=== PATIENT | female | born 1970 | race Caucasian/White ===

== ENCOUNTER 2018-06-09 06:58 | Inpatient (IN) | payer MEDICARE ==
[2018-06-09 08:21] LABS: HEMATOCRIT 39.1 % (36.0-47.0); HEMOGLOBIN 13.5 g/dl (12.0-15.5); MEAN CORPUSCULAR HEMOGLOBIN 28.2 pg (27.0-33.0); MEAN CORPUSCULAR HGB CONC 34.5 g/dl (32.0-36.5); MEAN CORPUSCULAR VOLUME 81.8 fl (80.0-96.0); PLATELET COUNT, AUTOMATED 234 10^3/uL (150-450); RED BLOOD COUNT 4.78 10^6/uL (4.00-5.40); RED CELL DISTRIBUTION WIDTH 13.7 % (11.5-14.5); WHITE BLOOD COUNT 4.4 10^3/uL (4.0-10.0)
[2018-06-09 08:48] LABS: AMPHETAMINES LEVEL URINE NEGATIVE (NEGATIVE); BARBITURATES URINE NEGATIVE (NEGATIVE); BENZODIAZEPINES URINE NEGATIVE (NEGATIVE); CANNABINOIDS URINE NEGATIVE (NEGATIVE); COCAINE METABOLITE URINE NEGATIVE (NEGATIVE); METHADONE URINE NEGATIVE (NEGATIVE); OPIATES URINE NEGATIVE (NEGATIVE); PHENCYCLIDINE URINE NEGATIVE (NEGATIVE)
[2018-06-09 08:55] LABS: ACETAMINOPHEN LEVEL < 2.0 UG/ML (10.0-30.0); ALBUMIN 3.1 GM/DL (3.2-5.2); ALBUMIN/GLOBULIN RATIO 0.72 (1.00-1.93); ALKALINE PHOSPHATASE 107 U/L (45-117); ALT/SGPT 55 U/L (12-78); ANION GAP 13 MEQ/L (8-16); AST/SGOT 31 U/L (7-37); BILIRUBIN,DIRECT < 0.1 MG/DL (0.0-0.2); BILIRUBIN,TOTAL 0.2 MG/DL (0.2-1.0); BLOOD UREA NITROGEN 11 MG/DL (7-18); CALCIUM LEVEL 8.4 MG/DL (8.5-10.1); CARBON DIOXIDE LEVEL 23 MEQ/L (21-32); CHLORIDE LEVEL 96 MEQ/L (98-107); ETHYL ALCOHOL (ETHANOL) < 0.003 % (0.000-0.010); GLOMERULAR FILTRATION RATE > 60.0 (>58); GLUCOSE, FASTING 362 MG/DL (70-100); POTASSIUM SERUM 3.7 MEQ/L (3.5-5.1); SALICYLATE LEVEL < 1.7 MG/DL (5.0-30.0); SODIUM LEVEL 132 MEQ/L (136-145); TOTAL PROTEIN 7.4 GM/DL (6.4-8.2)
[2018-06-09 11:16] LABS: ESTIMATED AVERAGE GLUCOSE 226 MG/DL (60-110); HEMOGLOBIN A1c 9.5 %
[2018-06-09] MEDS ORDERED: MOM 30ML SUSPENSION UDC PO (19:30)
[2018-06-09] MEDS ORDERED: ACETAMINOPHEN TAB 650MG DOSE (2X325MG) PO (19:30)
[2018-06-09] MEDS ORDERED: OLANZapine ORAL DISINTEGRATING TAB 5MG PO (19:30)
[2018-06-09] MEDS ORDERED: MAALOX 30 ML SUSP *UDC PO (19:30)
[2018-06-09] MEDS: metFORMIN (GLUCOPHAGE) 1000 MG TABLET PO (22:54)
[2018-06-09] MEDS: OLANZapine 10 MG TAB PO (22:54)
[2018-06-09] MEDS: PANTOPRAZOLE 40MG TAB (PROTONIX) PO (22:54)
[2018-06-09] MEDS: zolPIDEM TARTRATE 10MG TAB PO (22:54)
[2018-06-09] MEDS: ATORVASTATIN 10 MG TAB PO (22:54)
[2018-06-09] MEDS: BACLOFEN 10 MG TAB PO (22:55)
[2018-06-09] MEDS: GABAPENTIN 300 MG CAP PO (22:55)
[2018-06-09] MEDS: OXcarbazepine 300 MG TAB PO (22:55)
[2018-06-09] MEDS: IBUPROFEN 800 MG TAB PO (23:00)
[2018-06-10] MEDS ORDERED: DEXTROSE 50% 50 ML SYRINGE IV (08:45)
[2018-06-10] MEDS ORDERED: GLUCAGON FOR INJ 1 MG VIAL (J1610) SC (08:45)
[2018-06-10] MEDS ORDERED: GLUCOSE 4 GM CHEW TABLET PO (08:45)
[2018-06-10 09:43] LABS: CONTROL LINE HCG INT CTR LINE PRESENT; HCG, SERUM QUALITATIVE NEGATIVE (NEGATIVE)
[2018-06-10] MEDS: IBUPROFEN 800 MG TAB PO ×2 (10:08→21:54)
[2018-06-10] MEDS: BACLOFEN 10 MG TAB PO ×2 (10:08→21:52)
[2018-06-10] MEDS: FLUoxetine 20 MG CAP PO (10:08)
[2018-06-10] MEDS: GABAPENTIN 300 MG CAP PO ×2 (10:08→21:52)
[2018-06-10] MEDS: metFORMIN (GLUCOPHAGE) 1000 MG TABLET PO ×2 (10:08→21:51)
[2018-06-10] MEDS: OXcarbazepine 300 MG TAB PO ×2 (10:08→21:52)
[2018-06-10] MEDS: HumaLOG INSULIN (NovoLOG) PER UNIT SC ×3 (12:00→21:00)
[2018-06-10 12:02] LABS: BEDSIDE GLUCOSE 295 MG/DL (70-105)
[2018-06-10 17:05] LABS: BEDSIDE GLUCOSE 231 MG/DL (70-105)
[2018-06-10] MEDS: LEVEMIR (INSULIN DETEMIR) 1 UNITS/0.01ML SC (21:00)
[2018-06-10] MEDS: zolPIDEM TARTRATE 10MG TAB PO (21:51)
[2018-06-10] MEDS: ATORVASTATIN 10 MG TAB PO (21:51)
[2018-06-10] MEDS: risperiDONE 2 MG TAB PO (21:52)
[2018-06-10] MEDS: PANTOPRAZOLE 40MG TAB (PROTONIX) PO (21:53)
[2018-06-10] MEDS: OLANZapine 10 MG TAB PO (21:53)
[2018-06-10 21:58] LABS: BEDSIDE GLUCOSE 261 MG/DL (70-105)
[2018-06-11 06:01] LABS: BEDSIDE GLUCOSE 186 MG/DL (70-105)
[2018-06-11] MEDS: HumaLOG INSULIN (NovoLOG) PER UNIT SC ×4 (06:43→20:51)
[2018-06-11 07:59] LABS: ALBUMIN 3.1 GM/DL (3.2-5.2); ALBUMIN/GLOBULIN RATIO 0.84 (1.00-1.93); ALKALINE PHOSPHATASE 82 U/L (45-117); ALT/SGPT 58 U/L (12-78); ANION GAP 11 MEQ/L (8-16); AST/SGOT 39 U/L (7-37); BILIRUBIN,TOTAL 0.3 MG/DL (0.2-1.0); BLOOD UREA NITROGEN 11 MG/DL (7-18); CALCIUM LEVEL 8.8 MG/DL (8.5-10.1); CARBON DIOXIDE LEVEL 27 MEQ/L (21-32); CHLORIDE LEVEL 98 MEQ/L (98-107); CREATININE FOR GFR 0.79 MG/DL (0.55-1.30); FREE THYROXINE INDEX 3.1 % (1.3-4.8); GLOMERULAR FILTRATION RATE > 60.0 (>58); GLUCOSE, FASTING 220 MG/DL (70-100); POTASSIUM SERUM 3.9 MEQ/L (3.5-5.1); SODIUM LEVEL 136 MEQ/L (136-145); T UPTAKE 31 % (30-39); THYROXINE (T4) 9.9 UG/DL (4.5-12.0); TOTAL PROTEIN 6.8 GM/DL (6.4-8.2)
[2018-06-11] MEDS: FLUoxetine 20 MG CAP PO (08:36)
[2018-06-11] MEDS: risperiDONE 1 MG TAB PO (08:36)
[2018-06-11] MEDS: metFORMIN (GLUCOPHAGE) 1000 MG TABLET PO ×2 (08:36→20:51)
[2018-06-11] MEDS: GABAPENTIN 300 MG CAP PO ×2 (08:36→20:50)
[2018-06-11] MEDS: IBUPROFEN 800 MG TAB PO ×2 (08:37→20:51)
[2018-06-11] MEDS: BACLOFEN 10 MG TAB PO ×2 (08:37→20:50)
[2018-06-11] MEDS: INFLUENZA QUADRIVALENT PF VACCINE 0.5ML SYRINGE (90686) IM (08:38)
[2018-06-11] MEDS: OXcarbazepine 300 MG TAB PO ×2 (08:40→20:50)
[2018-06-11 12:01] LABS: BEDSIDE GLUCOSE 260 MG/DL (70-105)
[2018-06-11] MEDS: LORazepam 1 MG TAB PO (13:25)
[2018-06-11] MEDS: risperiDONE 3 MG TAB PO (13:25)
[2018-06-11 16:51] LABS: BEDSIDE GLUCOSE 258 MG/DL (70-105)
[2018-06-11 20:47] LABS: BEDSIDE GLUCOSE 241 MG/DL (70-105)
[2018-06-11] MEDS: zolPIDEM TARTRATE 10MG TAB PO (20:49)
[2018-06-11] MEDS: ATORVASTATIN 10 MG TAB PO (20:50)
[2018-06-11] MEDS: risperiDONE 2 MG TAB PO (20:50)
[2018-06-11] MEDS: PANTOPRAZOLE 40MG TAB (PROTONIX) PO (20:51)
[2018-06-11] MEDS: OLANZapine 5 MG TAB PO (20:51)
[2018-06-11] MEDS: LEVEMIR (INSULIN DETEMIR) 1 UNITS/0.01ML SC (20:52)
[2018-06-12 06:49] LABS: BEDSIDE GLUCOSE 176 MG/DL (70-105)
[2018-06-12] MEDS: HumaLOG INSULIN (NovoLOG) PER UNIT SC ×4 (06:49→21:00)
[2018-06-12] MEDS: metFORMIN (GLUCOPHAGE) 1000 MG TABLET PO ×2 (09:50→21:34)
[2018-06-12] MEDS: BACLOFEN 10 MG TAB PO ×2 (09:50→21:34)
[2018-06-12] MEDS: risperiDONE 0.5 MG TAB PO (09:50)
[2018-06-12] MEDS: OXcarbazepine 300 MG TAB PO ×2 (09:50→21:35)
[2018-06-12] MEDS: GABAPENTIN 300 MG CAP PO ×2 (09:50→21:35)
[2018-06-12] MEDS: IBUPROFEN 800 MG TAB PO ×2 (09:51→21:35)
[2018-06-12] MEDS: FLUoxetine 20 MG CAP PO (09:51)
[2018-06-12 12:04] LABS: BEDSIDE GLUCOSE 206 MG/DL (70-105)
[2018-06-12] MEDS: risperiDONE 2 MG TAB PO (14:51)
[2018-06-12] MEDS ORDERED: risperiDONE 3 MG TAB PO (15:00)
[2018-06-12 17:24] LABS: BEDSIDE GLUCOSE 225 MG/DL (70-105)
[2018-06-12 21:31] LABS: BEDSIDE GLUCOSE 246 MG/DL (70-105)
[2018-06-12] MEDS: clonazePAM 1 MG TAB PO (21:34)
[2018-06-12] MEDS: zolPIDEM TARTRATE 10MG TAB PO (21:34)
[2018-06-12] MEDS: ATORVASTATIN 10 MG TAB PO (21:34)
[2018-06-12] MEDS: PANTOPRAZOLE 40MG TAB (PROTONIX) PO (21:35)
[2018-06-12] MEDS: OLANZapine 5 MG TAB PO (21:35)
[2018-06-12] MEDS: risperiDONE 3 MG TAB PO (21:35)
[2018-06-12] MEDS: LEVEMIR (INSULIN DETEMIR) 1 UNITS/0.01ML SC (21:36)
[2018-06-13] MEDS: HumaLOG INSULIN (NovoLOG) PER UNIT SC ×4 (06:59→20:39)
[2018-06-13 07:01] LABS: BEDSIDE GLUCOSE 264 MG/DL (70-105)
[2018-06-13] MEDS: clonazePAM 1 MG TAB PO ×2 (08:40→20:34)
[2018-06-13] MEDS: IBUPROFEN 800 MG TAB PO ×2 (08:41→20:35)
[2018-06-13] MEDS: risperiDONE 0.5 MG TAB PO (08:41)
[2018-06-13] MEDS: FLUoxetine 20 MG CAP PO (08:41)
[2018-06-13] MEDS: GABAPENTIN 300 MG CAP PO ×2 (08:41→20:34)
[2018-06-13] MEDS: BACLOFEN 10 MG TAB PO ×2 (08:41→20:35)
[2018-06-13] MEDS: metFORMIN (GLUCOPHAGE) 1000 MG TABLET PO ×2 (08:41→20:34)
[2018-06-13] MEDS: OXcarbazepine 300 MG TAB PO ×2 (08:41→20:34)
[2018-06-13 12:14] LABS: BEDSIDE GLUCOSE 298 MG/DL (70-105)
[2018-06-13] MEDS: risperiDONE 3 MG TAB PO ×2 (15:08→20:34)
[2018-06-13 17:24] LABS: BEDSIDE GLUCOSE 199 MG/DL (70-105)
[2018-06-13] MEDS: PANTOPRAZOLE 40MG TAB (PROTONIX) PO (20:34)
[2018-06-13] MEDS: OLANZapine 5 MG TAB PO (20:34)
[2018-06-13] MEDS: ATORVASTATIN 10 MG TAB PO (20:34)
[2018-06-13] MEDS: zolPIDEM TARTRATE 10MG TAB PO (20:34)
[2018-06-13] MEDS: LEVEMIR (INSULIN DETEMIR) 1 UNITS/0.01ML SC (20:39)
[2018-06-13 20:41] LABS: BEDSIDE GLUCOSE 262 MG/DL (70-105)
[2018-06-14 06:26] LABS: BEDSIDE GLUCOSE 186 MG/DL (70-105)
[2018-06-14] MEDS: HumaLOG INSULIN (NovoLOG) PER UNIT SC ×4 (06:52→21:00)
[2018-06-14] MEDS: metFORMIN (GLUCOPHAGE) 1000 MG TABLET PO ×2 (08:44→21:21)
[2018-06-14] MEDS: clonazePAM 1 MG TAB PO ×2 (08:44→21:21)
[2018-06-14] MEDS: FLUoxetine 20 MG CAP PO (08:44)
[2018-06-14] MEDS: risperiDONE 0.5 MG TAB PO (08:44)
[2018-06-14] MEDS: BACLOFEN 10 MG TAB PO ×2 (08:44→21:21)
[2018-06-14] MEDS: GABAPENTIN 300 MG CAP PO ×2 (08:44→21:21)
[2018-06-14] MEDS: OXcarbazepine 300 MG TAB PO ×2 (08:44→21:21)
[2018-06-14] MEDS: IBUPROFEN 800 MG TAB PO ×2 (08:44→21:22)
[2018-06-14] MEDS: risperiDONE 3 MG TAB PO ×2 (14:45→21:21)
[2018-06-14 17:17] LABS: BEDSIDE GLUCOSE 235 MG/DL (70-105)
[2018-06-14] MEDS: OLANZapine 5 MG TAB PO (21:21)
[2018-06-14] MEDS: zolPIDEM TARTRATE 10MG TAB PO (21:21)
[2018-06-14] MEDS: PANTOPRAZOLE 40MG TAB (PROTONIX) PO (21:21)
[2018-06-14 21:22] LABS: BEDSIDE GLUCOSE 241 MG/DL (70-105)
[2018-06-14] MEDS: ATORVASTATIN 10 MG TAB PO (21:22)
[2018-06-14] MEDS: LEVEMIR (INSULIN DETEMIR) 1 UNITS/0.01ML SC (21:26)
[2018-06-15 06:17] LABS: BEDSIDE GLUCOSE 226 MG/DL (70-105)
[2018-06-15] MEDS: HumaLOG INSULIN (NovoLOG) PER UNIT SC ×4 (06:50→20:59)
[2018-06-15] MEDS: FLUoxetine 20 MG CAP PO (08:42)
[2018-06-15] MEDS: BACLOFEN 10 MG TAB PO ×2 (08:42→20:53)
[2018-06-15] MEDS: clonazePAM 1 MG TAB PO ×2 (08:42→20:52)
[2018-06-15] MEDS: risperiDONE 0.5 MG TAB PO (08:42)
[2018-06-15] MEDS: OXcarbazepine 300 MG TAB PO ×2 (08:42→20:54)
[2018-06-15] MEDS: GABAPENTIN 300 MG CAP PO ×2 (08:42→20:54)
[2018-06-15] MEDS: IBUPROFEN 800 MG TAB PO ×2 (08:42→20:57)
[2018-06-15] MEDS: metFORMIN (GLUCOPHAGE) 1000 MG TABLET PO ×2 (08:42→20:53)
[2018-06-15 12:24] LABS: BEDSIDE GLUCOSE 264 MG/DL (70-105)
[2018-06-15] MEDS: risperiDONE 3 MG TAB PO ×2 (15:32→20:57)
[2018-06-15 17:12] LABS: BEDSIDE GLUCOSE 243 MG/DL (70-105)
[2018-06-15] MEDS: ATORVASTATIN 10 MG TAB PO (20:52)
[2018-06-15] MEDS: zolPIDEM TARTRATE 10MG TAB PO (20:52)
[2018-06-15 20:53] LABS: BEDSIDE GLUCOSE 265 MG/DL (70-105)
[2018-06-15] MEDS: OLANZapine 5 MG TAB PO (20:54)
[2018-06-15] MEDS: PANTOPRAZOLE 40MG TAB (PROTONIX) PO (20:57)
[2018-06-15] MEDS: LEVEMIR (INSULIN DETEMIR) 1 UNITS/0.01ML SC (20:59)
[2018-06-16 06:13] LABS: BEDSIDE GLUCOSE 206 MG/DL (70-105)
[2018-06-16] MEDS: HumaLOG INSULIN (NovoLOG) PER UNIT SC ×4 (06:50→21:00)
[2018-06-16] MEDS: BACLOFEN 10 MG TAB PO ×2 (09:29→21:28)
[2018-06-16] MEDS: metFORMIN (GLUCOPHAGE) 1000 MG TABLET PO ×2 (09:29→21:28)
[2018-06-16] MEDS: OXcarbazepine 300 MG TAB PO ×2 (09:29→21:28)
[2018-06-16] MEDS: FLUoxetine 20 MG CAP PO (09:29)
[2018-06-16] MEDS: clonazePAM 1 MG TAB PO ×2 (09:29→21:29)
[2018-06-16] MEDS: GABAPENTIN 300 MG CAP PO ×2 (09:29→21:27)
[2018-06-16] MEDS: risperiDONE 0.5 MG TAB PO (09:29)
[2018-06-16] MEDS: IBUPROFEN 800 MG TAB PO ×2 (09:29→21:29)
[2018-06-16 11:46] LABS: BEDSIDE GLUCOSE 217 MG/DL (70-105)
[2018-06-16] MEDS: risperiDONE 3 MG TAB PO ×2 (14:35→21:29)
[2018-06-16] MEDS ORDERED: diphenhydrAMINE 50 MG CAP PO (15:15)
[2018-06-16 17:02] LABS: BEDSIDE GLUCOSE 233 MG/DL (70-105)
[2018-06-16] MEDS: ATORVASTATIN 10 MG TAB PO (21:27)
[2018-06-16 21:28] LABS: BEDSIDE GLUCOSE 237 MG/DL (70-105)
[2018-06-16] MEDS: zolPIDEM TARTRATE 5 MG TAB PO (21:28)
[2018-06-16] MEDS: PANTOPRAZOLE 40MG TAB (PROTONIX) PO (21:28)
[2018-06-16] MEDS: MIRTAZAPINE 15 MG TAB PO (21:28)
[2018-06-16] MEDS: LEVEMIR (INSULIN DETEMIR) 1 UNITS/0.01ML SC (21:30)
[2018-06-17] MEDS: HumaLOG INSULIN (NovoLOG) PER UNIT SC ×4 (06:23→21:00)
[2018-06-17 06:35] LABS: BEDSIDE GLUCOSE 195 MG/DL (70-105)
[2018-06-17] MEDS ORDERED: FLUoxetine 10 MG CAP PO (09:00)
[2018-06-17] MEDS: IBUPROFEN 800 MG TAB PO ×2 (09:48→21:19)
[2018-06-17] MEDS: metFORMIN (GLUCOPHAGE) 1000 MG TABLET PO ×2 (09:48→21:18)
[2018-06-17] MEDS: OXcarbazepine 300 MG TAB PO ×2 (09:48→21:19)
[2018-06-17] MEDS: VENLAFAXINE 37.5 MG TAB PO (09:48)
[2018-06-17] MEDS: clonazePAM 1 MG TAB PO ×2 (09:48→21:19)
[2018-06-17] MEDS: FLUoxetine 20 MG CAP PO (09:49)
[2018-06-17] MEDS: BACLOFEN 10 MG TAB PO ×2 (09:49→21:18)
[2018-06-17] MEDS: GABAPENTIN 300 MG CAP PO ×2 (09:49→21:19)
[2018-06-17 11:46] LABS: BEDSIDE GLUCOSE 268 MG/DL (70-105)
[2018-06-17] MEDS: risperiDONE 2 MG TAB PO (15:18)
[2018-06-17 16:30] LABS: BEDSIDE GLUCOSE 225 MG/DL (70-105)
[2018-06-17] MEDS ORDERED: PILL CRUSHER/CUTTER 1 EACH XX (16:30)
[2018-06-17 21:18] LABS: BEDSIDE GLUCOSE 196 MG/DL (70-105)
[2018-06-17] MEDS: MIRTAZAPINE 15 MG TAB PO (21:18)
[2018-06-17] MEDS: ATORVASTATIN 10 MG TAB PO (21:18)
[2018-06-17] MEDS: zolPIDEM TARTRATE 5 MG TAB PO (21:19)
[2018-06-17] MEDS: PANTOPRAZOLE 40MG TAB (PROTONIX) PO (21:19)
[2018-06-17] MEDS: risperiDONE 3 MG TAB PO (21:19)
[2018-06-17] MEDS: LEVEMIR (INSULIN DETEMIR) 1 UNITS/0.01ML SC (21:20)
[2018-06-18 06:33] LABS: BEDSIDE GLUCOSE 177 MG/DL (70-105)
[2018-06-18] MEDS: HumaLOG INSULIN (NovoLOG) PER UNIT SC ×4 (06:34→21:00)
[2018-06-18] MEDS: metFORMIN (GLUCOPHAGE) 1000 MG TABLET PO ×2 (08:38→22:00)
[2018-06-18] MEDS: BACLOFEN 10 MG TAB PO ×2 (08:39→22:00)
[2018-06-18] MEDS: clonazePAM 1 MG TAB PO ×2 (08:40→22:00)
[2018-06-18] MEDS: VENLAFAXINE 37.5 MG TAB PO (08:40)
[2018-06-18] MEDS: GABAPENTIN 300 MG CAP PO ×2 (08:41→22:00)
[2018-06-18] MEDS: IBUPROFEN 800 MG TAB PO ×2 (08:41→21:59)
[2018-06-18] MEDS: FLUoxetine 10 MG CAP PO (08:42)
[2018-06-18] MEDS: OXcarbazepine 300 MG TAB PO ×2 (08:42→21:59)
[2018-06-18 11:36] LABS: BEDSIDE GLUCOSE 170 MG/DL (70-105)
[2018-06-18] MEDS: risperiDONE 2 MG TAB PO (15:03)
[2018-06-18 16:49] LABS: BEDSIDE GLUCOSE 251 MG/DL (70-105)
[2018-06-18] MEDS: PANTOPRAZOLE 40MG TAB (PROTONIX) PO (21:59)
[2018-06-18] MEDS: ARIPiprazole 10 MG TAB PO (21:59)
[2018-06-18] MEDS: MIRTAZAPINE 15 MG TAB PO (22:00)
[2018-06-18] MEDS: risperiDONE 3 MG TAB PO (22:00)
[2018-06-18] MEDS: ATORVASTATIN 10 MG TAB PO (22:00)
[2018-06-18] MEDS: zolPIDEM TARTRATE 5 MG TAB PO (22:00)
[2018-06-18 22:03] LABS: BEDSIDE GLUCOSE 246 MG/DL (70-105)
[2018-06-18] MEDS: LEVEMIR (INSULIN DETEMIR) 1 UNITS/0.01ML SC (22:04)
[2018-06-19 06:30] LABS: BEDSIDE GLUCOSE 258 MG/DL (70-105)
[2018-06-19] MEDS: HumaLOG INSULIN (NovoLOG) PER UNIT SC ×4 (07:08→21:00)
[2018-06-19] MEDS: ARIPiprazole 10 MG TAB PO (09:29)
[2018-06-19] MEDS: GABAPENTIN 300 MG CAP PO ×2 (09:29→20:13)
[2018-06-19] MEDS: IBUPROFEN 800 MG TAB PO ×2 (09:29→20:13)
[2018-06-19] MEDS: OXcarbazepine 300 MG TAB PO ×2 (09:29→20:16)
[2018-06-19] MEDS: metFORMIN (GLUCOPHAGE) 1000 MG TABLET PO ×2 (09:29→20:17)
[2018-06-19] MEDS: VENLAFAXINE 37.5 MG TAB PO ×2 (09:29→20:17)
[2018-06-19] MEDS: clonazePAM 1 MG TAB PO (09:29)
[2018-06-19] MEDS: BACLOFEN 10 MG TAB PO ×2 (09:30→20:13)
[2018-06-19] MEDS: IBUPROFEN 600 MG TAB PO (12:32)
[2018-06-19 12:37] LABS: BEDSIDE GLUCOSE 166 MG/DL (70-105)
[2018-06-19 15:24] LABS: BEDSIDE GLUCOSE 132 MG/DL (70-105)
[2018-06-19] MEDS: risperiDONE 2 MG TAB PO (15:28)
[2018-06-19 17:18] LABS: BEDSIDE GLUCOSE 163 MG/DL (70-105)
[2018-06-19 20:11] LABS: BEDSIDE GLUCOSE 181 MG/DL (70-105)
[2018-06-19] MEDS: ATORVASTATIN 10 MG TAB PO (20:12)
[2018-06-19] MEDS: ARIPiprazole 15 MG TAB (AbiLIFY) PO (20:13)
[2018-06-19] MEDS: zolPIDEM TARTRATE 5 MG TAB PO (20:16)
[2018-06-19] MEDS: risperiDONE 3 MG TAB PO (20:16)
[2018-06-19] MEDS: MIRTAZAPINE 15 MG TAB PO (20:17)
[2018-06-19] MEDS: PANTOPRAZOLE 40MG TAB (PROTONIX) PO (20:17)
[2018-06-19] MEDS: LEVEMIR (INSULIN DETEMIR) 1 UNITS/0.01ML SC (21:20)
[2018-06-20 06:30] LABS: BEDSIDE GLUCOSE 176 MG/DL (70-105)
[2018-06-20] MEDS: HumaLOG INSULIN (NovoLOG) PER UNIT SC ×4 (07:09→21:00)
[2018-06-20] MEDS: OXcarbazepine 300 MG TAB PO ×2 (08:53→21:06)
[2018-06-20] MEDS: BACLOFEN 10 MG TAB PO ×2 (08:53→21:05)
[2018-06-20] MEDS: VENLAFAXINE 37.5 MG TAB PO ×2 (08:53→21:05)
[2018-06-20] MEDS: metFORMIN (GLUCOPHAGE) 1000 MG TABLET PO ×2 (08:53→21:05)
[2018-06-20] MEDS: GABAPENTIN 300 MG CAP PO ×2 (08:53→21:06)
[2018-06-20] MEDS: IBUPROFEN 800 MG TAB PO ×2 (08:54→21:04)
[2018-06-20] MEDS: ARIPiprazole 15 MG TAB (AbiLIFY) PO ×2 (08:54→21:06)
[2018-06-20] MEDS ORDERED: VENLAFAXINE 37.5 MG TAB PO (09:00)
[2018-06-20] MEDS: hydrOXYzine 10 MG TAB PO (09:17)
[2018-06-20 12:05] LABS: BEDSIDE GLUCOSE 206 MG/DL (70-105)
[2018-06-20] MEDS: risperiDONE 2 MG TAB PO ×2 (14:09→21:06)
[2018-06-20 16:56] LABS: BEDSIDE GLUCOSE 145 MG/DL (70-105)
[2018-06-20] MEDS: zolPIDEM TARTRATE 5 MG TAB PO (21:00)
[2018-06-20] MEDS: ATORVASTATIN 10 MG TAB PO (21:04)
[2018-06-20] MEDS: MIRTAZAPINE 15 MG TAB PO (21:05)
[2018-06-20] MEDS: PANTOPRAZOLE 40MG TAB (PROTONIX) PO (21:06)
[2018-06-20] MEDS: LEVEMIR (INSULIN DETEMIR) 1 UNITS/0.01ML SC (21:10)
[2018-06-21 05:31] LABS: BEDSIDE GLUCOSE 168 MG/DL (70-105)
[2018-06-21] MEDS: HumaLOG INSULIN (NovoLOG) PER UNIT SC ×4 (06:33→21:00)
[2018-06-21 06:40] LABS: BEDSIDE GLUCOSE 142 MG/DL (70-105)
[2018-06-21] MEDS: GABAPENTIN 300 MG CAP PO ×2 (09:07→21:30)
[2018-06-21] MEDS: ARIPiprazole 15 MG TAB (AbiLIFY) PO ×2 (09:07→21:29)
[2018-06-21] MEDS: BACLOFEN 10 MG TAB PO ×2 (09:07→21:29)
[2018-06-21] MEDS: OXcarbazepine 300 MG TAB PO ×2 (09:07→21:30)
[2018-06-21] MEDS: IBUPROFEN 800 MG TAB PO ×2 (09:07→21:29)
[2018-06-21] MEDS: VENLAFAXINE 37.5 MG TAB PO ×2 (09:07→21:29)
[2018-06-21] MEDS: metFORMIN (GLUCOPHAGE) 1000 MG TABLET PO ×2 (09:07→21:30)
[2018-06-21 12:14] LABS: BEDSIDE GLUCOSE 165 MG/DL (70-105)
[2018-06-21] MEDS: risperiDONE 2 MG TAB PO ×2 (14:04→21:30)
[2018-06-21] MEDS: CEPACOL LOZENGE PO ×2 (16:54→21:34)
[2018-06-21 16:56] LABS: BEDSIDE GLUCOSE 128 MG/DL (70-105)
[2018-06-21] MEDS: zolPIDEM TARTRATE 5 MG TAB PO (21:00)
[2018-06-21] MEDS: MIRTAZAPINE 15 MG TAB PO (21:29)
[2018-06-21] MEDS: PANTOPRAZOLE 40MG TAB (PROTONIX) PO (21:29)
[2018-06-21] MEDS: ATORVASTATIN 10 MG TAB PO (21:30)
[2018-06-21 21:31] LABS: BEDSIDE GLUCOSE 148 MG/DL (70-105)
[2018-06-21] MEDS: LEVEMIR (INSULIN DETEMIR) 1 UNITS/0.01ML SC (21:32)
[2018-06-22 06:32] LABS: BEDSIDE GLUCOSE 152 MG/DL (70-105)
[2018-06-22] MEDS: HumaLOG INSULIN (NovoLOG) PER UNIT SC ×4 (06:33→21:00)
[2018-06-22] MEDS: IBUPROFEN 800 MG TAB PO ×2 (08:52→21:34)
[2018-06-22] MEDS: OXcarbazepine 300 MG TAB PO ×2 (08:53→21:33)
[2018-06-22] MEDS: ARIPiprazole 15 MG TAB (AbiLIFY) PO ×2 (08:53→21:34)
[2018-06-22] MEDS: VENLAFAXINE 37.5 MG TAB PO ×2 (08:53→21:34)
[2018-06-22] MEDS: BACLOFEN 10 MG TAB PO ×2 (08:53→21:34)
[2018-06-22] MEDS: GABAPENTIN 300 MG CAP PO ×2 (08:53→21:34)
[2018-06-22 12:06] LABS: BEDSIDE GLUCOSE 142 MG/DL (70-105)
[2018-06-22] MEDS: metFORMIN (GLUCOPHAGE) 1000 MG TABLET PO ×2 (12:06→21:34)
[2018-06-22] MEDS: CEPACOL LOZENGE PO ×2 (13:45→21:39)
[2018-06-22] MEDS: risperiDONE 2 MG TAB PO ×2 (14:44→21:33)
[2018-06-22 16:51] LABS: BEDSIDE GLUCOSE 131 MG/DL (70-105)
[2018-06-22] MEDS: zolPIDEM TARTRATE 5 MG TAB PO (21:00)
[2018-06-22 21:34] LABS: BEDSIDE GLUCOSE 146 MG/DL (70-105)
[2018-06-22] MEDS: PANTOPRAZOLE 40MG TAB (PROTONIX) PO (21:34)
[2018-06-22] MEDS: MIRTAZAPINE 15 MG TAB PO (21:34)
[2018-06-22] MEDS: ATORVASTATIN 10 MG TAB PO (21:34)
[2018-06-22] MEDS: LEVEMIR (INSULIN DETEMIR) 1 UNITS/0.01ML SC (21:41)
[2018-06-23] MEDS: HumaLOG INSULIN (NovoLOG) PER UNIT SC ×4 (06:28→21:00)
[2018-06-23 06:47] LABS: BEDSIDE GLUCOSE 115 MG/DL (70-105)
[2018-06-23] MEDS: ARIPiprazole 15 MG TAB (AbiLIFY) PO ×2 (09:01→21:52)
[2018-06-23] MEDS: BACLOFEN 10 MG TAB PO ×2 (09:01→21:52)
[2018-06-23] MEDS: metFORMIN (GLUCOPHAGE) 1000 MG TABLET PO ×2 (09:01→21:52)
[2018-06-23] MEDS: VENLAFAXINE 37.5 MG TAB PO (09:01)
[2018-06-23] MEDS: OXcarbazepine 300 MG TAB PO ×2 (09:01→21:52)
[2018-06-23] MEDS: IBUPROFEN 800 MG TAB PO ×2 (09:01→21:51)
[2018-06-23] MEDS: GABAPENTIN 300 MG CAP PO ×2 (09:01→21:52)
[2018-06-23 11:59] LABS: BEDSIDE GLUCOSE 137 MG/DL (70-105)
[2018-06-23] MEDS: risperiDONE 2 MG TAB PO ×2 (14:30→21:54)
[2018-06-23 16:59] LABS: BEDSIDE GLUCOSE 127 MG/DL (70-105)
[2018-06-23 21:46] LABS: BEDSIDE GLUCOSE 127 MG/DL (70-105)
[2018-06-23] MEDS: PANTOPRAZOLE 40MG TAB (PROTONIX) PO (21:52)
[2018-06-23] MEDS: ATORVASTATIN 10 MG TAB PO (21:52)
[2018-06-23] MEDS: MIRTAZAPINE 15 MG TAB PO (21:54)
[2018-06-23] MEDS: VENLAFAXINE **XR** 75MG CAPSULE PO (21:54)
[2018-06-23] MEDS: LEVEMIR (INSULIN DETEMIR) 1 UNITS/0.01ML SC (22:06)
[2018-06-24] MEDS: HumaLOG INSULIN (NovoLOG) PER UNIT SC ×4 (06:53→21:00)
[2018-06-24 08:19] LABS: BEDSIDE GLUCOSE 142 MG/DL (70-105)
[2018-06-24 08:19] LABS: BEDSIDE GLUCOSE 68 MG/DL (70-105)
[2018-06-24] MEDS: metFORMIN (GLUCOPHAGE) 1000 MG TABLET PO ×2 (09:21→21:01)
[2018-06-24] MEDS: ARIPiprazole 15 MG TAB (AbiLIFY) PO (09:21)
[2018-06-24] MEDS: BACLOFEN 10 MG TAB PO ×2 (09:22→21:03)
[2018-06-24] MEDS: OXcarbazepine 300 MG TAB PO ×2 (09:23→21:03)
[2018-06-24] MEDS: GABAPENTIN 300 MG CAP PO ×2 (09:23→21:03)
[2018-06-24] MEDS: VENLAFAXINE **XR** 75MG CAPSULE PO (09:23)
[2018-06-24] MEDS: IBUPROFEN 800 MG TAB PO ×2 (09:43→21:02)
[2018-06-24 11:44] LABS: BEDSIDE GLUCOSE 167 MG/DL (70-105)
[2018-06-24] MEDS: NYSTATIN 500,000 U/5 ML SUSP UDC SS ×3 (12:01→21:01)
[2018-06-24] MEDS: risperiDONE 2 MG TAB PO ×2 (15:35→21:03)
[2018-06-24 17:37] LABS: BEDSIDE GLUCOSE 110 MG/DL (70-105)
[2018-06-24 20:58] LABS: BEDSIDE GLUCOSE 145 MG/DL (70-105)
[2018-06-24] MEDS: MIRTAZAPINE 15 MG TAB PO (21:03)
[2018-06-24] MEDS: ATORVASTATIN 10 MG TAB PO (21:03)
[2018-06-24] MEDS: QUEtiapine FUMARATE 25 MG TAB PO (21:03)
[2018-06-24] MEDS: LEVEMIR (INSULIN DETEMIR) 1 UNITS/0.01ML SC (21:10)
[2018-06-24] MEDS: PANTOPRAZOLE 40MG TAB (PROTONIX) PO (21:12)
[2018-06-25 06:28] LABS: BEDSIDE GLUCOSE 126 MG/DL (70-105)
[2018-06-25] MEDS: HumaLOG INSULIN (NovoLOG) PER UNIT SC ×4 (06:52→21:00)
[2018-06-25 07:05] LABS: ALBUMIN 3.4 GM/DL (3.2-5.2); ALBUMIN/GLOBULIN RATIO 0.94 (1.00-1.93); ALKALINE PHOSPHATASE 82 U/L (45-117); ALT/SGPT 41 U/L (12-78); AST/SGOT 25 U/L (7-37); BILIRUBIN,DIRECT < 0.1 MG/DL (0.0-0.2); BILIRUBIN,TOTAL 0.2 MG/DL (0.2-1.0); CHOLESTEROL LEVEL 209 MG/DL (<200); CHOLESTEROL RISK RATIO 5.358 (<5); HDL CHOLESTEROL 39 MG/DL (>40); NON-HDL-C 170 MG/DL; TRIGLYCERIDES LEVEL 559 MG/DL (<150)
[2018-06-25] MEDS: metFORMIN (GLUCOPHAGE) 1000 MG TABLET PO ×2 (08:54→21:38)
[2018-06-25] MEDS: NYSTATIN 500,000 U/5 ML SUSP UDC SS ×4 (08:54→21:36)
[2018-06-25] MEDS: GABAPENTIN 300 MG CAP PO ×2 (08:55→21:40)
[2018-06-25] MEDS: BACLOFEN 10 MG TAB PO ×2 (08:55→21:38)
[2018-06-25] MEDS: IBUPROFEN 800 MG TAB PO ×2 (08:55→21:43)
[2018-06-25] MEDS: FLUoxetine 10 MG CAP PO (08:55)
[2018-06-25] MEDS: QUEtiapine FUMARATE 25 MG TAB PO ×3 (08:55→21:37)
[2018-06-25] MEDS: OXcarbazepine 300 MG TAB PO ×2 (08:55→21:40)
[2018-06-25] MEDS: VENLAFAXINE **XR** 75MG CAPSULE PO (08:56)
[2018-06-25 12:10] LABS: BEDSIDE GLUCOSE 122 MG/DL (70-105)
[2018-06-25] MEDS: CEPACOL LOZENGE PO (15:42)
[2018-06-25 17:12] LABS: BEDSIDE GLUCOSE 142 MG/DL (70-105)
[2018-06-25] MEDS ORDERED: ARIPiprazole 15 MG TAB (AbiLIFY) PO (21:00)
[2018-06-25] MEDS ORDERED: risperiDONE 1 MG TAB PO (21:00)
[2018-06-25] MEDS: MIRTAZAPINE 15 MG TAB PO (21:37)
[2018-06-25] MEDS: ATORVASTATIN 10 MG TAB PO (21:37)
[2018-06-25 21:38] LABS: BEDSIDE GLUCOSE 141 MG/DL (70-105)
[2018-06-25] MEDS: risperiDONE 2 MG TAB PO (21:39)
[2018-06-25] MEDS: PANTOPRAZOLE 40MG TAB (PROTONIX) PO (21:40)
[2018-06-25] MEDS: LEVEMIR (INSULIN DETEMIR) 1 UNITS/0.01ML SC (21:41)
[2018-06-26] MEDS: HumaLOG INSULIN (NovoLOG) PER UNIT SC ×4 (06:29→21:00)
[2018-06-26 06:46] LABS: BEDSIDE GLUCOSE 119 MG/DL (70-105)
[2018-06-26] MEDS: OXcarbazepine 300 MG TAB PO ×2 (08:27→21:08)
[2018-06-26] MEDS: BACLOFEN 10 MG TAB PO ×2 (08:27→21:09)
[2018-06-26] MEDS: metFORMIN (GLUCOPHAGE) 1000 MG TABLET PO ×2 (08:27→21:09)
[2018-06-26] MEDS: VENLAFAXINE **XR** 75MG CAPSULE PO (08:27)
[2018-06-26] MEDS: QUEtiapine FUMARATE 25 MG TAB PO ×3 (08:27→21:08)
[2018-06-26] MEDS: IBUPROFEN 800 MG TAB PO ×2 (08:27→21:08)
[2018-06-26] MEDS: GABAPENTIN 300 MG CAP PO ×2 (08:27→21:08)
[2018-06-26] MEDS: NYSTATIN 500,000 U/5 ML SUSP UDC SS ×4 (08:27→21:06)
[2018-06-26 12:03] LABS: BEDSIDE GLUCOSE 119 MG/DL (70-105)
[2018-06-26 17:14] LABS: BEDSIDE GLUCOSE 132 MG/DL (70-105)
[2018-06-26] MEDS: MIRTAZAPINE 15 MG TAB PO (21:08)
[2018-06-26] MEDS: PANTOPRAZOLE 40MG TAB (PROTONIX) PO (21:08)
[2018-06-26 21:09] LABS: BEDSIDE GLUCOSE 128 MG/DL (70-105)
[2018-06-26] MEDS: ATORVASTATIN 10 MG TAB PO (21:09)
[2018-06-26] MEDS: risperiDONE 2 MG TAB PO (21:09)
[2018-06-26] MEDS: LEVEMIR (INSULIN DETEMIR) 1 UNITS/0.01ML SC (21:13)
[2018-06-27] MEDS: HumaLOG INSULIN (NovoLOG) PER UNIT SC ×4 (06:28→21:00)
[2018-06-27 06:35] LABS: BEDSIDE GLUCOSE 103 MG/DL (70-105)
[2018-06-27] MEDS: VENLAFAXINE **XR** 75MG CAPSULE PO (09:02)
[2018-06-27] MEDS: NYSTATIN 500,000 U/5 ML SUSP UDC SS ×4 (09:02→21:29)
[2018-06-27] MEDS: OXcarbazepine 300 MG TAB PO ×2 (09:03→21:29)
[2018-06-27] MEDS: BACLOFEN 10 MG TAB PO ×2 (09:03→21:27)
[2018-06-27] MEDS: IBUPROFEN 800 MG TAB PO ×2 (09:03→21:28)
[2018-06-27] MEDS: GABAPENTIN 300 MG CAP PO ×2 (09:03→21:29)
[2018-06-27] MEDS: QUEtiapine FUMARATE 25 MG TAB PO ×3 (09:03→21:29)
[2018-06-27] MEDS: metFORMIN (GLUCOPHAGE) 1000 MG TABLET PO ×2 (09:03→21:29)
[2018-06-27 12:31] LABS: BEDSIDE GLUCOSE 116 MG/DL (70-105)
[2018-06-27 17:29] LABS: BEDSIDE GLUCOSE 115 MG/DL (70-105)
[2018-06-27 21:23] LABS: BEDSIDE GLUCOSE 147 MG/DL (70-105)
[2018-06-27] MEDS: PANTOPRAZOLE 40MG TAB (PROTONIX) PO (21:27)
[2018-06-27] MEDS: MIRTAZAPINE 15 MG TAB PO (21:29)
[2018-06-27] MEDS: ATORVASTATIN 10 MG TAB PO (21:29)
[2018-06-27] MEDS: LEVEMIR (INSULIN DETEMIR) 1 UNITS/0.01ML SC (21:35)
[2018-06-27] MEDS: risperiDONE 2 MG TAB PO (21:40)
[2018-06-28 06:39] LABS: BEDSIDE GLUCOSE 132 MG/DL (70-105)
[2018-06-28] MEDS: HumaLOG INSULIN (NovoLOG) PER UNIT SC ×4 (06:52→20:52)
[2018-06-28] MEDS: BACLOFEN 10 MG TAB PO ×2 (09:52→20:45)
[2018-06-28] MEDS: OXcarbazepine 300 MG TAB PO ×2 (09:52→20:46)
[2018-06-28] MEDS: VENLAFAXINE **XR** 75MG CAPSULE PO (09:52)
[2018-06-28] MEDS: metFORMIN (GLUCOPHAGE) 1000 MG TABLET PO ×2 (09:53→20:46)
[2018-06-28] MEDS: NYSTATIN 500,000 U/5 ML SUSP UDC SS ×4 (09:53→20:46)
[2018-06-28] MEDS: IBUPROFEN 800 MG TAB PO ×2 (09:53→20:48)
[2018-06-28] MEDS: GABAPENTIN 300 MG CAP PO ×2 (09:53→20:46)
[2018-06-28] MEDS: QUEtiapine FUMARATE 25 MG TAB PO ×3 (09:53→20:47)
[2018-06-28 13:32] LABS: BEDSIDE GLUCOSE 114 MG/DL (70-105)
[2018-06-28 17:00] LABS: BEDSIDE GLUCOSE 129 MG/DL (70-105)
[2018-06-28] MEDS: risperiDONE 2 MG TAB PO (20:46)
[2018-06-28] MEDS: ATORVASTATIN 10 MG TAB PO (20:46)
[2018-06-28] MEDS: LEVEMIR (INSULIN DETEMIR) 1 UNITS/0.01ML SC (20:46)
[2018-06-28] MEDS: MIRTAZAPINE 15 MG TAB PO (20:47)
[2018-06-28] MEDS: PANTOPRAZOLE 40MG TAB (PROTONIX) PO (20:48)
[2018-06-28 20:56] LABS: BEDSIDE GLUCOSE 155 MG/DL (70-105)
[2018-06-29 06:25] LABS: BEDSIDE GLUCOSE 119 MG/DL (70-105)
[2018-06-29] MEDS: HumaLOG INSULIN (NovoLOG) PER UNIT SC ×4 (06:47→21:47)
[2018-06-29] MEDS: QUEtiapine FUMARATE 25 MG TAB PO ×3 (08:46→21:42)
[2018-06-29] MEDS: metFORMIN (GLUCOPHAGE) 1000 MG TABLET PO ×2 (08:46→21:42)
[2018-06-29] MEDS: VENLAFAXINE **XR** 75MG CAPSULE PO (08:46)
[2018-06-29] MEDS: BACLOFEN 10 MG TAB PO ×2 (08:46→21:41)
[2018-06-29] MEDS: OXcarbazepine 300 MG TAB PO ×2 (08:46→21:41)
[2018-06-29] MEDS: NYSTATIN 500,000 U/5 ML SUSP UDC SS ×4 (08:47→21:40)
[2018-06-29] MEDS: GABAPENTIN 300 MG CAP PO ×2 (08:47→21:40)
[2018-06-29] MEDS: IBUPROFEN 800 MG TAB PO ×2 (08:47→21:42)
[2018-06-29 12:16] LABS: BEDSIDE GLUCOSE 139 MG/DL (70-105)
[2018-06-29 17:07] LABS: BEDSIDE GLUCOSE 167 MG/DL (70-105)
[2018-06-29] MEDS: risperiDONE 2 MG TAB PO (21:40)
[2018-06-29 21:41] LABS: BEDSIDE GLUCOSE 131 MG/DL (70-105)
[2018-06-29] MEDS: ATORVASTATIN 10 MG TAB PO (21:42)
[2018-06-29] MEDS: MIRTAZAPINE 15 MG TAB PO (21:42)
[2018-06-29] MEDS: PANTOPRAZOLE 40MG TAB (PROTONIX) PO (21:42)
[2018-06-29] MEDS: LEVEMIR (INSULIN DETEMIR) 1 UNITS/0.01ML SC (21:43)
[2018-06-30 06:40] LABS: BEDSIDE GLUCOSE 118 MG/DL (70-105)
[2018-06-30] MEDS: HumaLOG INSULIN (NovoLOG) PER UNIT SC ×4 (06:43→21:00)
[2018-06-30] MEDS: metFORMIN (GLUCOPHAGE) 1000 MG TABLET PO ×2 (08:28→22:04)
[2018-06-30] MEDS: QUEtiapine FUMARATE 25 MG TAB PO ×3 (08:28→22:03)
[2018-06-30] MEDS: OXcarbazepine 300 MG TAB PO ×2 (08:28→22:03)
[2018-06-30] MEDS: VENLAFAXINE **XR** 75MG CAPSULE PO (08:28)
[2018-06-30] MEDS: GABAPENTIN 300 MG CAP PO ×2 (08:28→22:05)
[2018-06-30] MEDS: NYSTATIN 500,000 U/5 ML SUSP UDC SS ×4 (08:28→22:05)
[2018-06-30] MEDS: IBUPROFEN 800 MG TAB PO ×2 (08:29→22:05)
[2018-06-30] MEDS: BACLOFEN 10 MG TAB PO ×2 (08:29→22:04)
[2018-06-30 11:52] LABS: BEDSIDE GLUCOSE 140 MG/DL (70-105)
[2018-06-30] MEDS ORDERED: clonazePAM 0.5 MG TAB PO (16:08)
[2018-06-30 16:54] LABS: BEDSIDE GLUCOSE 153 MG/DL (70-105)
[2018-06-30] MEDS: ATORVASTATIN 10 MG TAB PO (22:03)
[2018-06-30 22:04] LABS: BEDSIDE GLUCOSE 150 MG/DL (70-105)
[2018-06-30] MEDS: PANTOPRAZOLE 40MG TAB (PROTONIX) PO (22:04)
[2018-06-30] MEDS: MIRTAZAPINE 15 MG TAB PO (22:04)
[2018-06-30] MEDS: risperiDONE 2 MG TAB PO (22:05)
[2018-06-30] MEDS: LEVEMIR (INSULIN DETEMIR) 1 UNITS/0.01ML SC (22:06)
[2018-07-01 06:34] LABS: BEDSIDE GLUCOSE 114 MG/DL (70-105)
[2018-07-01] MEDS: HumaLOG INSULIN (NovoLOG) PER UNIT SC ×4 (06:38→21:00)
[2018-07-01] MEDS: NYSTATIN 500,000 U/5 ML SUSP UDC SS ×4 (09:25→22:19)
[2018-07-01] MEDS: OXcarbazepine 300 MG TAB PO ×2 (09:26→22:19)
[2018-07-01] MEDS: metFORMIN (GLUCOPHAGE) 1000 MG TABLET PO ×2 (09:27→22:18)
[2018-07-01] MEDS: QUEtiapine FUMARATE 25 MG TAB PO ×3 (09:27→22:17)
[2018-07-01] MEDS: BACLOFEN 10 MG TAB PO ×2 (09:27→22:18)
[2018-07-01] MEDS: GABAPENTIN 300 MG CAP PO ×2 (09:27→22:19)
[2018-07-01] MEDS: VENLAFAXINE **XR** 75MG CAPSULE PO (09:28)
[2018-07-01] MEDS: IBUPROFEN 800 MG TAB PO ×2 (09:28→22:19)
[2018-07-01 11:52] LABS: BEDSIDE GLUCOSE 137 MG/DL (70-105)
[2018-07-01 17:06] LABS: BEDSIDE GLUCOSE 123 MG/DL (70-105)
[2018-07-01] MEDS: MIRTAZAPINE 15 MG TAB PO (22:17)
[2018-07-01 22:18] LABS: BEDSIDE GLUCOSE 151 MG/DL (70-105)
[2018-07-01] MEDS: risperiDONE 2 MG TAB PO (22:18)
[2018-07-01] MEDS: PANTOPRAZOLE 40MG TAB (PROTONIX) PO (22:19)
[2018-07-01] MEDS: ATORVASTATIN 10 MG TAB PO (22:19)
[2018-07-01] MEDS: clonazePAM 0.5 MG TAB PO (22:19)
[2018-07-01] MEDS: LEVEMIR (INSULIN DETEMIR) 1 UNITS/0.01ML SC (22:20)
[2018-07-02 06:35] LABS: BEDSIDE GLUCOSE 111 MG/DL (70-105)
[2018-07-02] MEDS: HumaLOG INSULIN (NovoLOG) PER UNIT SC ×4 (06:39→21:00)
[2018-07-02] MEDS: VENLAFAXINE **XR** 75MG CAPSULE PO (09:32)
[2018-07-02] MEDS: IBUPROFEN 800 MG TAB PO ×2 (09:32→21:17)
[2018-07-02] MEDS: BACLOFEN 10 MG TAB PO ×2 (09:33→21:15)
[2018-07-02] MEDS: GABAPENTIN 300 MG CAP PO ×2 (09:33→21:14)
[2018-07-02] MEDS: metFORMIN (GLUCOPHAGE) 1000 MG TABLET PO ×2 (09:33→21:14)
[2018-07-02] MEDS: NYSTATIN 500,000 U/5 ML SUSP UDC SS ×4 (09:33→21:15)
[2018-07-02] MEDS: OXcarbazepine 300 MG TAB PO ×2 (09:33→21:14)
[2018-07-02] MEDS: QUEtiapine FUMARATE 25 MG TAB PO ×3 (09:33→21:14)
[2018-07-02 11:51] LABS: BEDSIDE GLUCOSE 102 MG/DL (70-105)
[2018-07-02 17:25] LABS: BEDSIDE GLUCOSE 132 MG/DL (70-105)
[2018-07-02] MEDS: PANTOPRAZOLE 40MG TAB (PROTONIX) PO (21:14)
[2018-07-02] MEDS: risperiDONE 2 MG TAB PO (21:14)
[2018-07-02] MEDS: MIRTAZAPINE 15 MG TAB PO (21:14)
[2018-07-02] MEDS: ATORVASTATIN 10 MG TAB PO (21:14)
[2018-07-02] MEDS: LEVEMIR (INSULIN DETEMIR) 1 UNITS/0.01ML SC (21:15)
[2018-07-02 21:22] LABS: BEDSIDE GLUCOSE 129 MG/DL (70-105)
[2018-07-03 06:30] LABS: BEDSIDE GLUCOSE 112 MG/DL (70-105)
[2018-07-03] MEDS: HumaLOG INSULIN (NovoLOG) PER UNIT SC ×3 (07:01→17:11)
[2018-07-03] MEDS: VENLAFAXINE **XR** 75MG CAPSULE PO (09:16)
[2018-07-03] MEDS: OXcarbazepine 300 MG TAB PO (09:17)
[2018-07-03] MEDS: IBUPROFEN 800 MG TAB PO (09:17)
[2018-07-03] MEDS: NYSTATIN 500,000 U/5 ML SUSP UDC SS ×3 (09:17→17:10)
[2018-07-03] MEDS: BACLOFEN 10 MG TAB PO (09:17)
[2018-07-03] MEDS: metFORMIN (GLUCOPHAGE) 1000 MG TABLET PO (09:17)
[2018-07-03] MEDS: GABAPENTIN 300 MG CAP PO (09:17)
[2018-07-03] MEDS: QUEtiapine FUMARATE 25 MG TAB PO ×2 (09:17→16:14)
[2018-07-03 12:02] LABS: BEDSIDE GLUCOSE 105 MG/DL (70-105)
[2018-07-03 17:25] LABS: BEDSIDE GLUCOSE 146 MG/DL (70-105)
== END 2018-07-03 17:30 | disposition home or self-care (01) | DRG 885 ==
LOC: M PSY 06-18 15:29 → M ED 06:58 → M PSY 06-10 23:24 → M ED INP 19:19 → M PSY 20:17
DX: F25.0 Schizoaffective disorder, bipolar type (principal); R45.851 Suicidal ideations; Z68.42 Body mass index [BMI] 45.0-49.9, adult; E87.1 Hypo-osmolality and hyponatremia; B37.0 Candidal stomatitis; K21.9 Gastro-esophageal reflux disease without esophagitis; J02.9 Acute pharyngitis, unspecified; E11.65 Type 2 diabetes mellitus with hyperglycemia; R94.6 Abnormal results of thyroid function studies; E78.5 Hyperlipidemia, unspecified; G47.00 Insomnia, unspecified; G43.909 Migraine, unspecified, not intractable, without status migrainosus; E66.9 Obesity, unspecified; L40.9 Psoriasis, unspecified; E28.2 Polycystic ovarian syndrome; Z79.84 Long term (current) use of oral hypoglycemic drugs; Z88.0 Allergy status to penicillin; Z88.8 Allergy status to other drugs, medicaments and biological substances; Z91.018 Allergy to other foods; Z79.899 Other long term (current) drug therapy; Z87.891 Personal history of nicotine dependence

== ENCOUNTER 2018-07-12 00:54 | Emergency (ER) | payer MEDICARE ==
[2018-07-12 01:34] LABS: BASO % 0.5 % (0.0-1.0); EOS % 0.2 % (0.0-3.0); HEMATOCRIT 37.8 % (36.0-47.0); HEMOGLOBIN 13.3 g/dl (12.0-15.5); IMMATURE GRANULOCYTE % 0.3 % (0-3.0); LYMPH # 1.6 10^3/uL (1.5-4.5); LYMPH % 26.9 % (24.0-44.0); MEAN CORPUSCULAR HEMOGLOBIN 28.9 pg (27.0-33.0); MEAN CORPUSCULAR HGB CONC 35.2 g/dl (32.0-36.5); MEAN CORPUSCULAR VOLUME 82.2 fl (80.0-96.0); MONO # 0.5 10^3/uL (0.0-0.8); MONO % 7.9 % (0.0-5.0); NEUTROPHILS # 3.8 10^3/uL (1.8-7.7); NEUTROPHILS % 64.2 % (36.0-66.0); PLATELET COUNT, AUTOMATED 276 10^3/uL (150-450); RED CELL DISTRIBUTION WIDTH 14.6 % (11.5-14.5); WHITE BLOOD COUNT 5.9 10^3/uL (4.0-10.0)
[2018-07-12 01:46] LABS: INR 0.89; PARTIAL THROMBOPLASTIN TIME 25.7 SECONDS (25.4-37.6); PROTHROMBIN TIME 12.1 SECONDS (12.1-14.4)
[2018-07-12 01:47] LABS: ABG BASE EXCESS -2.1 (-2.0-2.0); ABG HCO3 21.7 MEQ/L (22.0-26.0); ABG O2 SATURATION 97.9 % (95.0-99.0); ABG PARTIAL PRESSURE CO2 34.5 mmHg (35.0-45.0); ABG PARTIAL PRESSURE O2 104.4 mmHg (75.0-100.0); ABG STANDARD HCO3 22.7 MEQ/L (22.0-26.0); ABG TOTAL CO2 22.8 MEQ/L (22.0-29.0); ABG pH (ARTERIAL) 7.417 UNITS (7.350-7.450)
[2018-07-12] MEDS: NS 500 ML IV (02:13)
[2018-07-12] MEDS: KETOROLAC 30 MG/ML VIAL (J1885) IV (02:13)
[2018-07-12 02:19] LABS: ANION GAP 13 MEQ/L (8-16); BLOOD UREA NITROGEN 7 MG/DL (7-18); CARBON DIOXIDE LEVEL 25 MEQ/L (21-32); CHLORIDE LEVEL 99 MEQ/L (98-107); CPK CREATINE PHOSPHOKINASE 248 U/L (26-192); GLOMERULAR FILTRATION RATE > 60.0 (>58); GLUCOSE, FASTING 253 MG/DL (70-100); MB/CK RELATIVE INDEX 1.05 (< OR =4); POTASSIUM SERUM 4.3 MEQ/L (3.5-5.1); SODIUM LEVEL 137 MEQ/L (136-145); TROPONIN I < 0.02 NG/ML (< 0.10)
[2018-07-12] MEDS: MORPHINE 4 MG/ML 1ML VIAL/SYRINGE (J2270) IV (04:26)
== END 2018-07-12 05:44 | disposition home or self-care (01) ==
LOC: M ED 00:54
DX: R07.1 Chest pain on breathing (principal); R00.0 Tachycardia, unspecified; I45.10 Unspecified right bundle-branch block; R91.8 Other nonspecific abnormal finding of lung field; G43.909 Migraine, unspecified, not intractable, without status migrainosus; F31.9 Bipolar disorder, unspecified; Z87.891 Personal history of nicotine dependence; Z79.899 Other long term (current) drug therapy; Z88.0 Allergy status to penicillin; Z88.8 Allergy status to other drugs, medicaments and biological substances; Z91.018 Allergy to other foods
CPT/HCPCS: J2270

== ENCOUNTER 2018-07-15 09:00 | Emergency (ER) | payer MEDICARE ==
[2018-07-15] MEDS: methylPREDNISolone INJ 125 MG/2 ML VIAL (J2930) IV (09:43)
[2018-07-15] MEDS: FAMOTIDINE INJ 20MG/2ML VIAL (S0028) IV (09:43)
[2018-07-15] MEDS: diphenhydrAMINE INJ 50MG/ML VIAL (J1200) IV (09:43)
[2018-07-15] MEDS: NS 1,000 ML IV (09:43)
[2018-07-15 09:50] LABS: BASO % 0.1 % (0.0-1.0); EOS % 0.3 % (0.0-3.0); HEMOGLOBIN 12.1 g/dl (12.0-15.5); IMMATURE GRANULOCYTE % 0.3 % (0-3.0); LYMPH # 0.9 10^3/uL (1.5-4.5); LYMPH % 13.2 % (24.0-44.0); MEAN CORPUSCULAR HEMOGLOBIN 28.5 pg (27.0-33.0); MEAN CORPUSCULAR HGB CONC 34.6 g/dl (32.0-36.5); MEAN CORPUSCULAR VOLUME 82.4 fl (80.0-96.0); MONO # 0.3 10^3/uL (0.0-0.8); MONO % 4.4 % (0.0-5.0); NEUTROPHILS # 5.5 10^3/uL (1.8-7.7); NEUTROPHILS % 81.7 % (36.0-66.0); PLATELET COUNT, AUTOMATED 244 10^3/uL (150-450); RED BLOOD COUNT 4.25 10^6/uL (4.00-5.40); RED CELL DISTRIBUTION WIDTH 15.1 % (11.5-14.5); WHITE BLOOD COUNT 6.8 10^3/uL (4.0-10.0)
[2018-07-15 10:19] LABS: ALBUMIN 3.1 GM/DL (3.2-5.2); ALBUMIN/GLOBULIN RATIO 0.76 (1.00-1.93); ALKALINE PHOSPHATASE 84 U/L (45-117); ALT/SGPT 35 U/L (12-78); ANION GAP 12 MEQ/L (8-16); AST/SGOT 17 U/L (7-37); BILIRUBIN,DIRECT < 0.1 MG/DL (0.0-0.2); BILIRUBIN,TOTAL 0.2 MG/DL (0.2-1.0); BLOOD UREA NITROGEN 5 MG/DL (7-18); CALCIUM LEVEL 8.8 MG/DL (8.5-10.1); CARBON DIOXIDE LEVEL 24 MEQ/L (21-32); CHLORIDE LEVEL 99 MEQ/L (98-107); COMPLEMENT C4 46 MG/DL (10-40); CREATININE FOR GFR 0.96 MG/DL (0.55-1.30); GLOMERULAR FILTRATION RATE > 60.0 (>58); GLUCOSE, FASTING 370 MG/DL (70-100); POTASSIUM SERUM 3.6 MEQ/L (3.5-5.1); SODIUM LEVEL 135 MEQ/L (136-145); TOTAL PROTEIN 7.2 GM/DL (6.4-8.2)
[2018-07-15 10:20] LABS: ERYTHROCYTE SEDIMENTATION RATE 62 mm/hr (0-20)
[2018-07-22 00:07] LABS: C1 ESTERASE INHIB. FUNCTIONAL > 109 (.)
[2018-07-22 00:07] LABS: C1 ESTER INHIB. NON FUNCTIONAL 40 mg/dL (21-39); COAGULATION FACTOR XII ACTIVIT 92 % (50-150); TRYPTASE 6.4 ug/L (2.2-13.2)
== END 2018-07-15 12:08 | disposition home or self-care (01) ==
LOC: M ED 09:00
DX: T78.40XA Allergy, unspecified, initial encounter (principal); L29.9 Pruritus, unspecified; L50.9 Urticaria, unspecified; E11.9 Type 2 diabetes mellitus without complications; G43.909 Migraine, unspecified, not intractable, without status migrainosus
CPT/HCPCS: J1200

== ENCOUNTER 2018-07-17 22:35 | Emergency (ER) | payer MEDICARE ==
[2018-07-17 23:30] LABS: HEMOGLOBIN 11.9 g/dl (12.0-15.5); MEAN CORPUSCULAR HEMOGLOBIN 28.3 pg (27.0-33.0); PLATELET COUNT, AUTOMATED 296 10^3/uL (150-450); RED CELL DISTRIBUTION WIDTH 14.6 % (11.5-14.5); WHITE BLOOD COUNT 6.6 10^3/uL (4.0-10.0)
[2018-07-18 00:10] LABS: BEDSIDE GLUCOSE 185 MG/DL (70-105)
[2018-07-18 00:21] LABS: ANION GAP 13 MEQ/L (8-16); BLOOD UREA NITROGEN 10 MG/DL (7-18); CALCIUM LEVEL 8.7 MG/DL (8.5-10.1); CARBON DIOXIDE LEVEL 24 MEQ/L (21-32); CHLORIDE LEVEL 100 MEQ/L (98-107); CREATININE FOR GFR 0.87 MG/DL (0.55-1.30); GLOMERULAR FILTRATION RATE > 60.0 (>58); GLUCOSE, FASTING 194 MG/DL (70-100); POTASSIUM SERUM 4.1 MEQ/L (3.5-5.1); SODIUM LEVEL 137 MEQ/L (136-145)
== END 2018-07-18 00:29 | disposition home or self-care (01) ==
LOC: M ED 07-18 00:29
DX: H53.8 Other visual disturbances (principal); I10 Essential (primary) hypertension; Z86.39 Personal history of other endocrine, nutritional and metabolic disease; R73.9 Hyperglycemia, unspecified; Z79.84 Long term (current) use of oral hypoglycemic drugs; Z79.899 Other long term (current) drug therapy; Z88.8 Allergy status to other drugs, medicaments and biological substances; Z88.0 Allergy status to penicillin; Z91.018 Allergy to other foods
CPT/HCPCS: 80048

== ENCOUNTER 2018-11-11 19:48 | Inpatient (IN) | payer MEDICARE ==
[~2018-11-11] VITALS: Ht 162.6 cm; Wt 110.6 kg
[~2018-11-11 19:48] MED LIST: ABIL10TA9 PO; ABIL1TAB11 PO; AMBI10TA PO; AMBI5TAB PO; ANTI25TA OR; ARIP1TAB6 PO; ATIV1TAB10 PO; ATIV1TAB7 PO; ATOR1TAB19 PO; BACL-60 PO; BACL10TA2 PO; BACL1TAB9 PO; BENA25CA4 PO; BLOOKIT21 XX; CLON0.5T8 PO; DIPH50CA PO; DOCU10CA PO; FLUO20CA19 PO; FLUO20CA8 PO; FLUO60TA PO; GABA-843 PO; GABA-845 PO; GLUC1000 PO; HYDR-643 PO; HYDR5CR TOP; IBUP200T45 PO; IBUP600T OR; IMIT50TA PO; INSUH10VL SC; INSULANT SC; INVE117I IM; INVE234I IM; Janumet PO; KETO10TAB PO; METF10004 PO; MIRT15TA3 PO; NEUR100C OR; NEXI1CAP3 OR; NYST50SS SS; Onglyza PO; PALI1TAB2 PO; PANT40TA3 PO; PEPC1TAB5 PO; PERC5TAB8 OR; PRED10TA2 PO; PROZ20CA11 PO; PROZ40CA PO; QUET1TAB7 PO; RISP1TAB42 PO; RISP25INJ IM; RISP2TAB32 PO; SERO200T PO; SIMV20TA2 OR; STOO100C PO; TOPI50TA OR; TRAZ-160 PO; TRAZ-163 PO; TRIL600T PO; TRILEPTAL PO; VENL75CA47 PO; VITA500T3 PO; XANA0.5T OR; ZOLO100T PO; ZYPR20TA PO; [UNRECOGNIZED DRUG - CODE] TOP; [UNRECOGNIZED DRUG - OTHER] TOP
[2018-11-11 20:34] LABS: BASO # 0.1 10^3/uL (0.0-0.2); BASO % 1.1 % (0.0-1.0); EOS # 0.3 10^3/uL (0.0-0.50); EOS % 7.3 % (0.0-3.0); HEMATOCRIT 41.3 % (36.0-47.0); HEMOGLOBIN 13.6 g/dl (12.0-15.5); LYMPH # 1.6 10^3/uL (1.5-4.5); LYMPH % 34.8 % (24.0-44.0); MEAN CORPUSCULAR HEMOGLOBIN 28.3 pg (27.0-33.0); MEAN CORPUSCULAR HGB CONC 32.9 g/dl (32.0-36.5); MEAN CORPUSCULAR VOLUME 85.9 fl (80.0-96.0); MONO # 0.4 10^3/uL (0.0-0.8); MONO % 8.8 % (0.0-5.0); NEUTROPHILS # 2.2 10^3/uL (1.8-7.7); NEUTROPHILS % 47.8 % (36.0-66.0); PLATELET COUNT, AUTOMATED 289 10^3/uL (150-450); RED BLOOD COUNT 4.81 10^6/uL (4.00-5.40); WHITE BLOOD COUNT 4.7 10^3/uL (4.0-10.0)
[2018-11-11 20:45] LABS: INR 0.97
[2018-11-11 20:46] LABS: PARTIAL THROMBOPLASTIN TIME 25.2 SECONDS (25.4-37.6)
[2018-11-11 20:56] LABS: BLOOD UREA NITROGEN 10 MG/DL (7-18); CALCIUM LEVEL 8.8 MG/DL (8.5-10.1); CARBON DIOXIDE LEVEL 24 MEQ/L (21-32); CHLORIDE LEVEL 103 MEQ/L (98-107); CK-MB VALUE MASS < 1.0 NG/ML (<3.6); CPK CREATINE PHOSPHOKINASE 100 U/L (26-192); CREATININE FOR GFR 0.97 MG/DL (0.55-1.30); GLOMERULAR FILTRATION RATE > 60.0 (>58); GLUCOSE, FASTING 222 MG/DL (70-100); POTASSIUM SERUM 3.9 MEQ/L (3.5-5.1); SODIUM LEVEL 138 MEQ/L (136-145); TROPONIN I < 0.02 NG/ML (< 0.10)
--- NOTE | 2018-11-11 21:09 | REPVR ---
EXAM: CT Head Without Contrast EXAM DATE/TIME: 11/11/2018 8:06 PM CLINICAL HISTORY: 47 years old, female; Signs and symptoms; Dizziness; Additional info: CVA - nursing interventions must not delay CT TECHNIQUE: Imaging protocol: Axial computed tomography images of the head/brain without contrast. Radiation optimization: All CT scans at this facility use at least one of these dose optimization techniques: automated exposure control; mA and/or kV adjustment per patient size (includes targeted exams where dose is matched to clinical indication); or iterative reconstruction. COMPARISON: CT Head without contrast 04/16/2014 8:29 AM FINDINGS: Brain: There is no evidence of intracranial bleed. The reeves-white differentiation appears preserved. There is no evidence of mass effect. Ventricles: Normal appearing ventricles. Bones/joints: Unremarkable. No acute fracture. Sinuses: Clear paranasal sinuses. Mastoid air cells: Clear mastoid air cells. Soft tissues: Unremarkable. Other findings: There is no evidence of acute stroke. A stroke of less than 24 hours might not be seen on CT. MRI is more sensitive for this. IMPRESSION: 1. No evidence of acute stroke. MRI would be more sensitive. 2. No evidence of acute bleed. Electronically signed by: Riky Patel On 11/11/2018 21:08:39 PM
[2018-11-11] MEDS ORDERED: NORCO, ANEXSIA 5/325MG TABLET (HYDROcodone/ACETAMINOPHEN) PO ONE (23:45)
[2018-11-11] MEDS ORDERED: ASPIRIN 325 MG TAB PO ONE (23:45)
[2018-11-12] MEDS ORDERED: ATORVASTATIN 20 MG TAB PO ONE (02:15)
[2018-11-12] MEDS ORDERED: GLUCOSE 4 GM CHEW TABLET PO PRN (02:15)
[2018-11-12] MEDS ORDERED: GLUCAGON FOR INJ 1 MG VIAL (J1610) SC PRN (02:15)
[2018-11-12] MEDS ORDERED: DEXTROSE 50% 50 ML SYRINGE IV PRN (02:15)
--- NOTE | 2018-11-12 02:30 | HPEPDOC ---
General Date of Admission 11/12/18 Attending Physician: NATALIE MARQUEZ MD Chief Complaint The patient is a 47-year-old female admitted with a reason for visit of Dizziness. 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 4 days ago patient woke up with the numbness and paraesthesias of the right side of face and body which has been constantly present but patient did not pay any attention to it . Yesterday she started having sharp stabbing pains at eh back of the head just behind the right ear. Her noticed her dragging her right foot while walking today so came to the ED for evaluation. in the ED she had a CT head which was negative for any acute stroke. Pateint will need MRI and MRA t further evaluate for any stroke. Patient is admitted for possible stroke vs atypical migraine. Home Medications Scheduled Aripiprazole (Aripiprazole) 5 Mg Tab, 5 MG PO QHS for mood Atorvastatin Calcium (Atorvastatin Calcium) 10 Mg Tab, 10 MG PO QHS for CHOLESTEROL, (Reported) Baclofen (Baclofen) 10 Mg Tab, 20 MG PO QAM for MUSCLE SPASMS, (Reported) Baclofen (Baclofen) 20 Mg Tab, 40 MG PO QHS for MUSCLE SPASMS, (Reported) Famotidine (Pepcid) 20 Mg Tab, 20 MG PO BID Gabapentin (Gabapentin) 300 Mg Cap, 300 MG PO BID for PAIN Ibuprofen (Ibu-200) 200 Mg Tab, 800 MG PO BID, (Reported) Metformin HCl (Metformin HCl) 1,000 Mg Tab, 1,000 MG PO BID for DIABETES, (Reported) Mirtazapine (Mirtazapine) 15 Mg Tab, 30 MG PO QHS for mood/insomnia Nystatin (Nystatin Oral Susp) 5 Ml Susp, 5 ML SS QID for thrush Oxcarbazepine (Trileptal) 600 Mg Tab, 600 MG PO BID for MOOD STABILIZER Pantoprazole Sodium (Pantoprazole Sodium) 40 Mg Tab, 40 MG PO QHS for GERD Prednisone (Prednisone) 10 Mg Tab, 10 MG PO ASDIRECTED 6 po day 1-3; 5 po day 4-5; 4 po day 6-7; 3 po day 8-9, 2 poday 10-11; 1 po day 12-14 Quetiapine Fumarate (Quetiapine Fumarate) 25 Mg Tab, 50 MG PO TID for mood/psychosis Risperidone (Risperdal) 2 Mg Tab, 4 MG PO QHS for psychosis Venlafaxine HCl (Venlafaxine HCl ER) 75 Mg Capcr, 150 MG PO QAM for depression Scheduled PRN Clonazepam (Clonazepam) 0.5 Mg Tab, 0.5 MG PO BID PRN for ANXIETY/AGITATION Diphenhydramine HCl (Diphenhydramine HCl) 50 Mg Cap, 50 MG PO Q8HP PRN for MUSCLE SPASMS Diphenhydramine HCl (Benadryl) 25 Mg Cap, 2 CAP PO Q6HP PRN for ITCHING/SWELLING Hydroxyzine HCl (Hydroxyzine HCl) 10 Mg Tab, 10 MG PO Q6H PRN for ANXIETY, (Reported) Allergies Coded Allergies: Penicillins (Verified Allergy, Unknown, 11/11/18) bupropion (Verified Allergy, Unknown, 11/11/18) ketorolac (Verified Allergy, Unknown, 11/11/18) tomato (Verified Allergy, Unknown, 11/11/18) Past Medical History Medical History Migraine headaches with history of complicated migraine with right-sided weakness in May 2011PCOS GERD DM Hyperlipidemia Depression Anxiety Insomnia Bipolar disorder Schizophrenia/schizoaffective disorder psoriasis morbid Obesity Surgical History BL carpal tunnel repair Trigger thumb repair BL Social History * Smoker: former Smoker, quit greater than 1 year Alcohol: Denies Drugs: denies Psychosocial History: Anxiety, Bipolar, Depression, Other (schizoaffective disorder) Review of Systems Constitutional: Reports: Weakness ENT: Reports: Head Aches, Dysphagia Pulmonary: Denies: Dyspnea, Cough, Pleuritic Chest Pain, Other Symptoms Cardiovascular: Denies: Chest Pain, Palpitations, Orthopnea, Paroxysmal Noc. Dyspnea, Edema, Lt Headedness, Other Symptoms Gastrointestinal: Denies: Nausea, Vomiting, Abdominal Pain, Diarrhea, Constipation, Melena, Hematochezia, Other Symptoms Genitourinary: Denies: Dysuria, Frequency, Incontinence, Hematuria, Retention, Other Symptoms Neurological: Reports: Weakness, Numbness Physical Examination General Exam: Positive: Alert, Cooperative, No Acute Distress Eye Exam: Positive: PERRLA, Conjunctiva & lids normal, EOMI; Negative: Sclera icteric ENT Exam: Positive: Atraumatic, Mucous membr. moist/pink, Pharynx Normal Neck Exam: Positive: Supple; Negative: JVD, thyromegaly Chest Exam: Positive: Clear to auscultation, Normal air movement Heart Exam: Positive: Rate Normal, Regular Rhythm, Normal S1, Normal S2; Negative: Murmurs, Rubs Abdomen Exam: Positive: Normal bowel sounds, Soft; Negative: Tenderness, Hepatospenomegaly Extremity Exam: Positive: Normal pulses; Negative: Clubbing, Cyanosis, Edema Skin Exam: Positive: Nl turgor and temperature; Negative: Breakdown, Lesion Neuro Exam: Positive: Normal Speech (streangth 4/5 ont eh right arm and sld educational aide, strength 5/5 on the right leg. Decreased sensation on the right cheeks, chin , and whle right side of body, ins and needle sesation or right forehead , right abdominal wall. planters bilateral down going), Other (no disdiadokokinesis, finger nose test normal ) Psych Exam: Positive: Mental status NL, Mood NL, Memory Intact Vital Signs Vital Signs Date Time Temp Pulse Resp B/P (MAP) Pulse Ox O2 Delivery O2 Flow Rate FiO2 11/12/18 01:00 99 18 129/60 (83) 93 Room Air 11/11/18 19:48 98.1 Laboratory Data Labs 24H Laboratory Tests 2 11/11/18 20:21: Immature Granulocyte % (Auto) 0.2, White Blood Count 4.7, Red Blood Count 4.81, Hemoglobin 13.6, Hematocrit 41.3, Mean Corpuscular Volume 85.9, Mean Corpuscular Hemoglobin 28.3, Mean Corpuscular Hemoglobin Concent 32.9, Red Cell Distribution Width 14.1, Platelet Count 289, Neutrophils (%) (Auto) 47.8, Lymphocytes (%) (Auto) 34.8, Monocytes (%) (Auto) 8.8H, Eosinophils (%) (Auto) 7.3H, Basophils (%) (Auto) 1.1H, Neutrophils # (Auto) 2.2, Lymphocytes # (Auto) 1.6, Monocytes # (Auto) 0.4, Eosinophils # (Auto) 0.3, Basophils # (Auto) 0.1, Nucleated Red Blood Cells % (auto) 0.0, Prothrombin Time 13.0, Prothromb Time International Ratio 0.97, Activated Partial Thromboplast Time 25.2L, Anion Gap 11, Glomerular Filtration Rate > 60.0, Blood Urea Nitrogen 10, Creatinine 0.97, Sodium Level 138, Potassium Level 3.9, Chloride Level 103, Carbon Dioxide Level 24, Calcium Level 8.8, Total Creatine Kinase 100, Creatine Kinase MB < 1.0, Creatine Kinase MB Relative Index 1.00, Troponin I < 0.02 CBC/BMP Laboratory Tests 11/11/18 20:21 Red Blood Count 4.81, Mean Corpuscular Volume 85.9, Mean Corpuscular Hemoglobin 28.3, Mean Corpuscular Hemoglobin Concent 32.9, Red Cell Distribution Width 14.1, Neutrophils (%) (Auto) 47.8, Lymphocytes (%) (Auto) 34.8, Monocytes (%) (Auto) 8.8 H, Eosinophils (%) (Auto) 7.3 H, Basophils (%) (Auto) 1.1 H, Neutrophils # (Auto) 2.2, Lymphocytes # (Auto) 1.6, Monocytes # (Auto) 0.4, Eosinophils # (Auto) 0.3, Basophils # (Auto) 0.1, Calcium Level 8.8, Total Creatine Kinase 100 Assessment/Plan 47 year old female with extensive psychiatric history, suicidal attempt in the past, migraines with complicated migraine with right sided weakness in 2010, bilateral carpal tunnel s/p release, neuropathy and muscle spasms, 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 4 days ago patient woke up with the numbness and paraesthesias of the right side of face and body which has been constantly present but patient did not pay any attention to it . Yesterday she started having sharp stabbing pains at eh back of the head just behind the right ear. Her noticed her dragging her right foot while walking today so came to the ED for evaluation. in the ED she had a CT head which was negative for any acute stroke. Pateint will need MRI and MRA t further evaluate for any stroke. Patient is admitted for possible stroke vs atypical migraine. Paraesthesias, numbness and weakness of the right Possible Acute stroke Vs Atypical migraine Vs psychosomatic in view of her extensive psychiatric history. will get MRI and MRA of brain continue ASA and Statin Patient did have similar presentation in 2010 where she was evaluated for stroke and MS, Lyme dis which were negative. At that time it was felt to be due to complicated migraine. After MRI and MRA will consider Neurological consult Patient does have diabetic neuropathy also. Diabetes with Neuropathy will hold metformin in hospital start Lispro sliding scale continue gabapentin. Hyperlipidemia will increase statin dosage in view of possible stroke GERD continue home meds Psychiatric disorders continue home meds Morbid obesity complicating care PCOS will continue home meds Migraine attacks well controlled. ays does not have any more headaches after she quit smoking continue oxcarbazepine. DVT prophylaxis has been ordered. Plan / VTE VTE Prophylaxis Ordered?: Yes NATALIE MARQUEZ MD Nov 12, 2018 01:31
[2018-11-12] MEDS ORDERED: CLON0.5T8 PO (02:47)
[2018-11-12] MEDS ORDERED: QUET5TAB PO (02:47)
[2018-11-12] MEDS ORDERED: VENL150C43 PO (02:47)
[2018-11-12] MEDS ORDERED: MIRT1TAB15 PO (02:47)
[2018-11-12] MEDS ORDERED: ADVITAB PO (02:47)
[2018-11-12] MEDS ORDERED: TRIL600T PO (02:47)
[2018-11-12] MEDS ORDERED: RISP4TAB33 PO (02:47)
[2018-11-12] MEDS ORDERED: PANT-23 PO (02:47)
[2018-11-12] MEDS ORDERED: GLIM2TAB PO (02:47)
[2018-11-12] MEDS ORDERED: ARIP1TAB6 PO (02:47)
[2018-11-12] MEDS ORDERED: REME15TA PO (02:49)
[2018-11-12 03:15] VITALS: BP 121/77
[2018-11-12] MEDS ORDERED: ACETAMINOPHEN TAB 650MG DOSE (2X325MG) PO ONE (04:15)
[2018-11-12 06:22] LABS: BASO % 0.9 % (0.0-1.0); EOS # 0.3 10^3/uL (0.0-0.50); EOS % 7.2 % (0.0-3.0); HEMATOCRIT 38.5 % (36.0-47.0); HEMOGLOBIN 12.7 g/dl (12.0-15.5); LYMPH # 1.8 10^3/uL (1.5-4.5); LYMPH % 38.1 % (24.0-44.0); MEAN CORPUSCULAR HEMOGLOBIN 28.5 pg (27.0-33.0); MEAN CORPUSCULAR VOLUME 86.5 fl (80.0-96.0); MONO # 0.4 10^3/uL (0.0-0.8); MONO % 8.9 % (0.0-5.0); NEUTROPHILS # 2.1 10^3/uL (1.8-7.7); NEUTROPHILS % 44.7 % (36.0-66.0); PLATELET COUNT, AUTOMATED 243 10^3/uL (150-450); RED BLOOD COUNT 4.45 10^6/uL (4.00-5.40); WHITE BLOOD COUNT 4.7 10^3/uL (4.0-10.0)
[2018-11-12 06:33] LABS: BLOOD UREA NITROGEN 9 MG/DL (7-18); CALCIUM LEVEL 8.6 MG/DL (8.5-10.1); CARBON DIOXIDE LEVEL 27 MEQ/L (21-32); CHLORIDE LEVEL 104 MEQ/L (98-107); CREATININE FOR GFR 0.84 MG/DL (0.55-1.30); GLOMERULAR FILTRATION RATE > 60.0 (>58); GLUCOSE, FASTING 134 MG/DL (70-100); POTASSIUM SERUM 3.6 MEQ/L (3.5-5.1); SODIUM LEVEL 140 MEQ/L (136-145)
--- NOTE | 2018-11-12 07:15 | REP ---
Portable chest, 08:25 p.m., single AP upright view: Comparison is the PA and lateral chest dated 07/12/2018. There is a 10 mm faintly visible left upper lobe rounded nodule, similar to the comparison study. Follow-up chest CT is recommended. There are no infiltrates. No pleural effusions. Cardiac size is normal. The dodie, mediastinum, skeletal structures are unremarkable for positioning. Impression: There are no acute cardiopulmonary findings. There is a 10 mm faintly visible left upper lobe lung nodule. Follow-up chest CT is recommended for further evaluation. Electronically Signed by Aramis Foster MD 11/12/2018 07:07 A
[2018-11-12] MEDS: HumaLOG INSULIN (NovoLOG) PER UNIT SC SCH ×5 (07:30→21:53)
[2018-11-12 08:00] VITALS: BP 122/84
--- NOTE | 2018-11-12 08:29 | ECGEPIP ---
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
[2018-11-12] MEDS: GLIMEPIRIDE 2 MG TAB PO SCH (08:53)
[2018-11-12] MEDS: BACLOFEN 10 MG TAB PO SCH ×2 (08:53→21:53)
[2018-11-12] MEDS: QUEtiapine FUMARATE 50 MG TAB PO SCH ×3 (08:53→21:53)
[2018-11-12] MEDS: VENLAFAXINE **XR** 75MG CAPSULE PO SCH (08:53)
[2018-11-12] MEDS: PANTOPRAZOLE 40MG TAB (PROTONIX) PO SCH (08:53)
[2018-11-12] MEDS: ASPIRIN 81 MG CHEW TABLET PO SCH (08:53)
[2018-11-12] MEDS: OXcarbazepine 300 MG TAB PO SCH ×2 (11:02→21:52)
[2018-11-12 12:00] VITALS: BP 118/82
[2018-11-12 16:00] VITALS: BP 112/78
[2018-11-12] MEDS ORDERED: LORazepam 2 MG/ML VIAL (J2060) IV ONE (17:15)
[2018-11-12] MEDS ORDERED: PROHANCE 279.3MG/ML 15ML VIAL (A9576) As Ordered ONE (18:04)
[2018-11-12] MEDS ORDERED: MAG SULF 1GM/100ML (MAG RUN) 1 GM in APPROPRIATE DILUENT 1 EA IV ONE (19:00)
--- NOTE | 2018-11-12 19:27 | REPVR ---
EXAM: MR Angiogram Head Without Contrast, Arteries EXAM DATE/TIME: 11/12/2018 4:48 PM CLINICAL HISTORY: 47 years old, female; Signs and symptoms; Numbness; Patient HX: Numbness RT side of body; Additional info: F/o CVA TECHNIQUE: Imaging protocol: MR angiogram head without contrast. Exam focused on the arteries. COMPARISON: MRI-Brain without Contrast 04/14/2014 8:58 AM FINDINGS: Right internal carotid artery: Unremarkable. Intracranial segment is patent with no significant stenosis. No aneurysm. Right anterior cerebral artery: Unremarkable. No occlusion or significant stenosis. No aneurysm. Right middle cerebral artery: Unremarkable. No occlusion or significant stenosis. No aneurysm. Right posterior cerebral artery: Unremarkable. No occlusion or significant stenosis. No aneurysm. Right vertebral artery: Unremarkable. No occlusion or significant stenosis. No aneurysm. Left internal carotid artery: Unremarkable. Intracranial segment is patent with no significant stenosis. No aneurysm. Left anterior cerebral artery: Unremarkable. No occlusion or significant stenosis. No aneurysm. Left middle cerebral artery: Unremarkable. No occlusion or significant stenosis. No aneurysm. Left posterior cerebral artery: Unremarkable. No occlusion or significant stenosis. No aneurysm. Left vertebral artery: Unremarkable. No occlusion or significant stenosis. No aneurysm. Basilar artery: Unremarkable. No occlusion or significant stenosis. No aneurysm. IMPRESSION: No acute findings. Electronically signed by: Kwaku Rodriguez On 11/12/2018 19:27:06 PM
--- NOTE | 2018-11-12 19:33 | REPVR ---
EXAM: MR Head Without Contrast EXAM DATE/TIME: 11/12/2018 4:48 PM CLINICAL HISTORY: 47 years old, female; Signs and symptoms; Dizziness; Patient HX: Numbness RT side of body; Additional info: F/o CVA TECHNIQUE: Imaging protocol: MR of the head without contrast. COMPARISON: MRA BRAIN W/O CONTRAST 11/12/2018 6:19 PM FINDINGS: Brain: Multiple foci of T2 lengthening demonstrated in the periventricular and centrum semiovale white matter with some lesions on the right oriented perpendicular to the long axis of the ventricles (? Veloz's fingers) , findings which may be indicative of underlying demyelinating disease. Ventricles: Normal. No ventriculomegaly. Bones/joints: Unremarkable. Soft tissues: Normal. Sinuses: Normal as visualized. No acute sinusitis. Mastoid air cells: Normal as visualized. No mastoid effusion. Orbits: Unremarkable. IMPRESSION: Multiple foci of T2 lengthening demonstrated in the periventricular and centrum semiovale white matter. Possibility of demyelinating disease should be considered in the differential diagnosis. Electronically signed by: Kwaku Rodriguez On 11/12/2018 19:33:27 PM
--- NOTE | 2018-11-12 19:35 | REPVR ---
EXAM: MR Angiography Neck Without and With Contrast EXAM DATE/TIME: 11/12/2018 4:51 PM CLINICAL HISTORY: 47 years old, female; Signs and symptoms; Numbness; Patient HX: Numbness RT side o9f body; Additional info: With and without contrast to evaluate carotid dissection TECHNIQUE: Imaging protocol: Magnetic resonance angiography images of the neck without and with intravenous contrast. Contrast material: prohance Contrast volume: 25 ml Contrast route: iv COMPARISON: MRA BRAIN W/O CONTRAST 11/12/2018 6:19 PM FINDINGS: Right common carotid artery: Normal. No significant stenosis. No dissection or occlusion. Right internal carotid artery: Normal. Extracranial segment is patent with no significant stenosis. No dissection or occlusion. Right external carotid artery: Normal. No significant stenosis. No dissection or occlusion. Right vertebral artery: Normal. No significant stenosis. No dissection or occlusion. Left common carotid artery: Normal. No significant stenosis. No dissection or occlusion. Left internal carotid artery: Normal. Extracranial segment is patent with no significant stenosis. No dissection or occlusion. Left external carotid artery: Normal. No significant stenosis. No dissection or occlusion. Left vertebral artery: Normal. No significant stenosis. No dissection or occlusion. IMPRESSION: No hemodynamically significant stenosis. COMMENT: Reference per NASCET criteria for degree of stenosis: Mild: less than 50% stenosis. Moderate: 50-69% stenosis. Severe: 70-94% stenosis. Near occlusion: 95-99% stenosis. Electronically signed by: Kwaku Rodriguez On 11/12/2018 19:34:52 PM
[2018-11-12 20:00] VITALS: BP 151/88
[2018-11-12] MEDS ORDERED: VALPROATE SOD INJ 1,000 MG in D5W 50 ML IV ONE (20:00)
[2018-11-12] MEDS: risperiDONE 2 MG TAB PO SCH (21:52)
[2018-11-12] MEDS: ATORVASTATIN 20 MG TAB PO SCH (21:53)
[2018-11-12] MEDS: MIRTAZAPINE 15 MG TAB PO SCH (21:53)
[2018-11-12 23:59] VITALS: BP 152/70
[2018-11-13 04:00] VITALS: BP 145/96
[2018-11-13 05:46] LABS: EOS # 0.3 10^3/uL (0.0-0.50); HEMATOCRIT 36.3 % (36.0-47.0); HEMOGLOBIN 12.1 g/dl (12.0-15.5); LYMPH # 1.6 10^3/uL (1.5-4.5); LYMPH % 39.3 % (24.0-44.0); MEAN CORPUSCULAR HEMOGLOBIN 28.1 pg (27.0-33.0); MEAN CORPUSCULAR HGB CONC 33.3 g/dl (32.0-36.5); MEAN CORPUSCULAR VOLUME 84.4 fl (80.0-96.0); MONO # 0.4 10^3/uL (0.0-0.8); MONO % 9.9 % (0.0-5.0); NEUTROPHILS # 1.8 10^3/uL (1.8-7.7); NEUTROPHILS % 43.6 % (36.0-66.0); PLATELET COUNT, AUTOMATED 230 10^3/uL (150-450); WHITE BLOOD COUNT 4.2 10^3/uL (4.0-10.0)
[2018-11-13 06:07] LABS: BLOOD UREA NITROGEN 9 MG/DL (7-18); CARBON DIOXIDE LEVEL 25 MEQ/L (21-32); CHLORIDE LEVEL 107 MEQ/L (98-107); CREATININE FOR GFR 0.84 MG/DL (0.55-1.30); GLOMERULAR FILTRATION RATE > 60.0 (>58); GLUCOSE, FASTING 139 MG/DL (70-100); POTASSIUM SERUM 3.5 MEQ/L (3.5-5.1); SODIUM LEVEL 141 MEQ/L (136-145)
[2018-11-13 06:08] LABS: CALCIUM LEVEL 8.7 MG/DL (8.5-10.1)
[2018-11-13 08:00] VITALS: BP 143/79
[2018-11-13] MEDS: VENLAFAXINE **XR** 75MG CAPSULE PO SCH (08:04)
[2018-11-13] MEDS: GLIMEPIRIDE 2 MG TAB PO SCH (08:04)
[2018-11-13] MEDS: PANTOPRAZOLE 40MG TAB (PROTONIX) PO SCH (08:04)
[2018-11-13] MEDS: OXcarbazepine 300 MG TAB PO SCH ×2 (08:04→21:16)
[2018-11-13] MEDS: QUEtiapine FUMARATE 50 MG TAB PO SCH ×3 (08:04→21:16)
[2018-11-13] MEDS: BACLOFEN 10 MG TAB PO SCH ×2 (08:04→21:16)
[2018-11-13] MEDS: ASPIRIN 81 MG CHEW TABLET PO SCH (08:04)
[2018-11-13] MEDS: HumaLOG INSULIN (NovoLOG) PER UNIT SC SCH ×4 (08:05→21:17)
--- NOTE | 2018-11-13 09:32 | CR ---
DATE OF CONSULTATION: 11/13/2018 REFERRING PROVIDER: Dr. Bose REASON FOR CONSULTATION: Complex migraine versus stroke. The patient is a 47-year-old female with past medical history significant for history of right-sided hemiplegic complicated migraine. The patient states the last symptoms occurred approximately 4 years ago. The patient states that she has experienced weakness with numbness of the right arm and leg in the past. She states that she woke up 4 days ago and started to develop numbness, tingling in her right side of the body. She states the entire right side of the body feels numb. The patient has not had any resolution of that symptom. She states she has pain in the right eye. The patient states that she has pain in the back of her neck, as well. MRI of the carotids with and without contrast was done, which ruled out any dissection. The patient was started on aspirin 81 mg anyway. The patient's MRI is suggestive of possible demyelinating disease. MRI brain scan was completed without contrast. She would benefit from having a postcontrast study to evaluate for any acute demyelination with treatment of Solu-Medrol instead. If her eye is painful, I would recommend ophthalmologic evaluation to rule out optic neuritis. The patient may need MRI orbit study with and without contrast. The patient states that her headache is not very severe at this time. She has decreased strength in her right arm and hand compared to the left. Her legs are fairly strong, although she feels she has been dragging her right foot. The patient may benefit by having an MRI of the cervical and thoracic spine with and without contrast, as well, again to exclude any demyelinating disease. She denies any vertigo, dizziness, hearing loss, dysphasia, dysarthria, at this time. The patient's noticed over the last couple days that she was dragging her right foot when she ambulates. MRI does not show any acute stroke. REVIEW OF SYSTEMS: 14-point review of systems obtained and is negative except as per history of present illness (HPI). HOME MEDICATIONS: - Abilify - atorvastatin - baclofen - famotidine - gabapentin - metformin - mirtazapine - Nystatin - Trileptal 600 mg twice a day - Pantoprazole - prednisone - quetiapine - risperidone 4 mg by mouth nightly - venlafaxine - clonazepam - diphenhydramine - hydroxyzine ALLERGIES: PENICILLIN, BUPROPION, KETOROLAC, TOMATO. PAST MEDICAL HISTORY: Migraine headaches with history of hemiplegic right-sided migraine, polycystic ovarian syndrome (PCOS), gastroesophageal reflux disease, diabetes, hyperlipidemia, depression, anxiety, insomnia, bipolar disorder, schizophrenia, schizoaffective disorder, psoriasis, morbid obesity. SURGICAL HISTORY: Bilateral carpal tunnel repair, trigger thumb repair. SOCIAL HISTORY: Former smoker greater than 1 year ago. Denies use of any alcohol or illicit drugs. History of suicide attempt in the past. FAMILY HISTORY: Noncontributory. PHYSICAL EXAMINATION: Blood pressure is 102/78, pulse rate is 100, respiratory rate is 17, temperature is 97.1 degrees Fahrenheit, oxygenation is 96% on room air. The patient is awake, alert, oriented to person, place, and time. Speech, language, comprehension, repetition are intact. Pupils are 3 mm, sluggishly reactive to light. Extraocular movements are intact in all directions without nystagmus. Sensation in V1, V2, and V3 is decreased to light touch involving the right face. Hearing subjectively equal to finger rub. There is no pronator drift. The patient has decreased strength on initial testing involving the right biceps and triceps, handgrip, but with encouragement, the patient is able to demonstrate reasonable 5/5 effort. The patient has normal 5/5 strength in all four extremities. Sensory is decreased to light touch involving the entire right arm and leg. Coordination: Normal [id number] without any signs of ataxia or dysmetria. Gait deferred. ASSESSMENT: 1. A 47-year-old female with past medical history significant for complex hemiplegic right-sided migraine in the past, presenting with right eye pain and right hemisensory loss unimproved without a significant migrainous-like headache. 2. Rule out the optic neuritis of the right eye. 3. Rule out demyelinating disease of the central nervous system with MRI evidence of possible Veloz fingers perpendicular lesions to the ventricles. PLAN: 1. Agree with continuation of aspirin 81 mg by mouth daily given other comorbid symptoms. 2. Obtain MRI brain with contrast, MRI cervical and thoracic spine with and without contrast. If any active lesions are noted, recommend Solu-Medrol therapy 1 gram infused over the next 5 days. 3. Check B12, Lyme antibodies, ANC antibodies, ESR, VICENTA, rheumatoid factor, TSH, JOSE level. 4. The patient can receive intravenous (IV) Depacon 1 gram and IV magnesium sulfate 1 gram for treatment of acute migraine. 5. Physical therapy (PT) and occupational therapy (OT) evaluation recommended. 6. For brain scan, recommend asking radiology to complete a sagittal FLAIR sequence with T2 imaging to assess properly for Veloz fingers.
[2018-11-13 12:00] VITALS: BP 142/79
[2018-11-13] MEDS ORDERED: LORazepam 2 MG/ML VIAL (J2060) IV ONE (12:00)
[2018-11-13 16:00] VITALS: BP 146/80
--- NOTE | 2018-11-13 17:14 | IPNPDOC ---
Subjective Date Seen The patient was seen on 11/13/18. Subjective Chief Complaint/HPI Subjective: 47-year-old female with psychiatric history and migraines presented with right sided marissa-paresis and paresthesia. MRI head concern for demyelinating lesions such as MS. Interval history: Patient actually reported feeling better today, sensations improve in both upper and lower right extremity. Headache is persistent but improved from yesterday. Objective Physical Examination General Exam: Positive: Alert, Cooperative, No Acute Distress Eye Exam: Positive: PERRLA, Conjunctiva & lids normal, EOMI; Negative: Sclera icteric ENT Exam: Positive: Atraumatic, Mucous membr. moist/pink, Pharynx Normal Neck Exam: Positive: Supple; Negative: JVD, thyromegaly Chest Exam: Positive: Clear to auscultation, Normal air movement Heart Exam: Positive: Rate Normal, Regular Rhythm, Normal S1, Normal S2; Negative: Murmurs, Rubs Abdomen Exam: Positive: Normal bowel sounds, Soft; Negative: Tenderness, Hepatospenomegaly Extremity Exam: Positive: Normal pulses; Negative: Clubbing, Cyanosis, Edema Skin Exam: Positive: Nl turgor and temperature; Negative: Breakdown, Lesion Neuro Exam: Positive: Normal Speech (streangth 4/5 ont eh right arm and stock grader, strength 5/5 on the right leg. Decreased sensation on the right cheeks, chin , and whle right side of body, ins and needle sesation or right forehead , right abdominal wall. planters bilateral down going), Other (no disdiadokokinesis, finger nose test normal ) Psych Exam: Positive: Mental status NL, Mood NL, Memory Intact Other physical findings General: No acute distress, Alert Eyes: Normal sclera, EOMI, GABE HENT: Atraumatic, moist mucous membranes Cardiovascular: Normal rate, normal rhythm. No murmurs appreciated. Pulmonary: Clear to auscultation b/l, no wheezing GI: Soft, nontender, nondistended Skin: Warm and dry Neuro: CN grossly intact. RUE 3/5 strenth and RLE 4/5. 5/5 on R. side. Decrease sensation in R upper and lower extremities but improved from yesterday. Psych: oriented x 3 Assessment /Plan Assessment Assessment and Plan: 1. R. sided paresthesia and paresis - MS vs. Migraine - CT and MRI head showed no evidence of acute stroke but sugestive of possible demyelination. - Carotid studies showed no dissection. - To perform MRI head w/ contrast MS study as well as cervical and thoracic MRI w/wo contrast. - Neurology following. - Opthalmology consulted for r/o optic neuritis as patient complained of pressure behind R. eye. - c/w daily aspirin. - If any active lesions are noted on MRI w/ contrast, recommended to start on solumedrol 1 g over the next 5 days per neuro. - PT/OT. - Check Lyme, B12, ANCA, ESR, VICENTA, RF, JOSE, TSH 2. Schizophrenia/bipolar and Migraine - resume home medications. Patient is high risk due to right-sided symptoms confirmed for possible stroke versus multiple sclerosis Estimated length of stay 4-5 days with expected disposition to home. Plan/VTE VTE Prophylaxis Ordered?: Yes VS, I&O, 24H, Fishbone Vital Signs/I&O Vital Signs Date Time Temp Pulse Resp B/P (MAP) Pulse Ox O2 Delivery O2 Flow Rate FiO2 11/13/18 16:00 97.1 102 18 146/80 (102) 97 11/12/18 03:00 Room Air I&O- Last 24 Hours up to 6 AM 11/13/18 05:59 Intake Total 720 ml Output Total 950 ml Balance -230 ml Laboratory Data 24H LABS Laboratory Tests 2 11/12/18 20:25: Bedside Glucose (Misc Panel) 191H 11/13/18 05:24: Immature Granulocyte % (Auto) 0.2, White Blood Count 4.2, Red Blood Count 4.30, Hemoglobin 12.1, Hematocrit 36.3, Mean Corpuscular Volume 84.4, Mean Corpuscular Hemoglobin 28.1, Mean Corpuscular Hemoglobin Concent 33.3, Red Cell Distribution Width 13.9, Platelet Count 230, Neutrophils (%) (Auto) 43.6, Lymphocytes (%) (Auto) 39.3, Monocytes (%) (Auto) 9.9H, Eosinophils (%) (Auto) 6.0H, Basophils (%) (Auto) 1.0, Neutrophils # (Auto) 1.8, Lymphocytes # (Auto) 1.6, Monocytes # (Auto) 0.4, Eosinophils # (Auto) 0.3, Basophils # (Auto) 0.0, Nucleated Red Blood Cells % (auto) 0.0, Anion Gap 9, Glomerular Filtration Rate > 60.0, Blood Urea Nitrogen 9, Creatinine 0.84, Sodium Level 141, Potassium Level 3.5, Chloride Level 107, Carbon Dioxide Level 25, Calcium Level 8.7 11/13/18 11:43: Bedside Glucose (Misc Panel) 148H CBC/BMP Laboratory Tests 11/13/18 05:24 Red Blood Count 4.30, Mean Corpuscular Volume 84.4, Mean Corpuscular Hemoglobin 28.1, Mean Corpuscular Hemoglobin Concent 33.3, Red Cell Distribution Width 13.9, Neutrophils (%) (Auto) 43.6, Lymphocytes (%) (Auto) 39.3, Monocytes (%) (Auto) 9.9 H, Eosinophils (%) (Auto) 6.0 H, Basophils (%) (Auto) 1.0, Neutrophils # (Auto) 1.8, Lymphocytes # (Auto) 1.6, Monocytes # (Auto) 0.4, Eosinophils # (Auto) 0.3, Basophils # (Auto) 0.0, Calcium Level 8.7 MAHAMED RICCI MD Nov 13, 2018 17:14
[2018-11-13 18:37] LABS: THYROID STIMULATING HORMONE 1.26 uIU/ML (0.358-3.740)
[2018-11-13] MEDS ORDERED: PROHANCE 279.3MG/ML 15ML VIAL (A9576) As Ordered ONE (19:34)
[2018-11-13] MEDS ORDERED: PROHANCE 279.3MG/ML 5ML VIAL (A9576) As Ordered ONE (19:34)
[2018-11-13 20:45] VITALS: BP 144/92
--- NOTE | 2018-11-13 20:49 | REPVR ---
EXAM: MR Thoracic Spine Without and With Contrast EXAM DATE/TIME: 11/13/2018 10:18 AM CLINICAL HISTORY: 47 years old, female; Signs and symptoms; Numbness; Patient HX: R/O ms; Additional info: Multiple sclerosis protocol. W and wo contrast TECHNIQUE: Imaging protocol: Multiplanar magnetic resonance images of the thoracic spine without and with intravenous contrast. Contrast material: prohance Contrast volume: 20 ml Contrast route: iv COMPARISON: No relevant prior studies available. FINDINGS: Vertebrae: Increased kyphosis of the thoracic spine. The thoracic vertebral bodies are normal in height, without abnormal subluxation. Discs/Spinal canal/Neural foramina: No pathological enhancement within the thoracic spinal canal. Degenerative disc bulge/osteophyte complex identified at multiple thoracic levels. Flow artifact is visualized within the thoracic spinal canal. At T2-3, a small central protrusion is visualized. There is mild increased concavity of the ventral border of the thoracic spinal cord at this level, suggestive of mild compression or atrophy. At T3-4, there is mild disc bulging without significant narrowing of the thecal sac. There is slight flattening of the right ventral thoracic spinal cord at this level. Hypertrophy of the ligamentum flavum is visualized at T6-7. There is minimal disc bulging, without significant overall narrowing of the thecal sac. A right-sided disc bulge/osteophyte complex that T7-8 causes mild narrowing of the right ventral thecal sac. A broad-based disc bulge/osteophyte complex at T8-9 causes mild flattening/compression of ventral border of the cervicothoracic spinal cord. Facet arthropathy is identified involving multiple lower thoracic levels. Right neural foraminal narrowing is identified at T1-2, T4-5, T5-6, T6-7 and T7-8. The remaining thoracic neural foramina are patent. Spinal cord: See above. Although limited by artifact, no well-defined intramedullary lesions are identified within the thoracic spinal cord. No definitive spinal cord edema. Lungs: Evaluation of the lungs on MRI is limited. Patchy airspace disease is identified within the lungs, right side greater than left. Soft tissues: Unremarkable. IMPRESSION: 1. Although limited by artifact, no well-defined intramedullary lesions are identified within the thoracic spinal cord. 2. Degenerative changes are identified at multiple thoracic levels. 3. A broad-based disc bulge/osteophyte complex at T8-9 causes mild flattening/compression of ventral border of the thoracic spinal cord. 4. At T2-3, a small central protrusion is visualized. There is mild increased concavity of the ventral border of the thoracic spinal cord at this level, suggestive of mild compression or atrophy. 5. At T3-4, there is mild disc bulging, with slight flattening of the right ventral thoracic spinal cord. 6. Right neural foraminal narrowing is identified at T1-2, T4-5, T5-6, T6-7 and T7-8. 7. Increased kyphosis of the thoracic spine. 8. Patchy airspace disease is identified within the lungs, right side greater than left. This can be further evaluated with chest CT. Electronically signed by: Bradley Mobley On 11/13/2018 20:49:14 PM
--- NOTE | 2018-11-13 21:00 | REPVR ---
EXAM: MR Head Without and With Contrast EXAM DATE/TIME: 11/13/2018 10:18 AM CLINICAL HISTORY: 47 years old, female; Abnormal findings; Abnormal radiologic findings of head/skull; Demyelination; Patient HX: Numbness, prior noncontrast mri brain yesterday; Additional info: Assess for ms, do with multiple sclerosis protocol TECHNIQUE: Imaging protocol: MR of the head without and with intravenous contrast. Contrast material: prohance Contrast volume: 20 ml Contrast route: iv COMPARISON: MRI-Brain without Contrast 11/12/2018 6:28 PM FINDINGS: Brain: There are scattered foci of FLAIR hyperintensity within the cerebral white matter, with an additional focus within the medial right cerebellar lobe. There is no mass effect or restricted diffusion associated with these foci. This white matter disease is nonspecific as to etiology, but can be consistent with the clinical indication of demyelination. Additional differential considerations include chronic small vessel ischemic disease, post-traumatic change, and migraine headaches, as well as additional infectious, inflammatory and autoimmune etiologies. No abnormal enhancement of the above-mentioned white matter disease to suggest active demyelination. No abnormally enhancing intracranial mass is visualized. No cerebral edema. Diffusion imaging was not available for the evaluation of acute ischemic change. Nonspecific increased FLAIR signal is identified deep to the corpus callosum. Ventricles: No ventriculomegaly. Bones/joints: Unremarkable. Soft tissues: Normal. Sinuses: Mucosal thickening of a few ethmoid air cells. Mastoid air cells: There is minimal hyperintensity within the region of the inferior left mastoid air cells, which may be contributed by artifact or due to mucosal thickening. Orbits: Minimal FLAIR hyperintensity is identified within the inferior aspect of each orbit, left side greater than right. This is suggestive of artifact or inflammatory changes. IMPRESSION: 1. There are scattered foci of FLAIR hyperintensity within the cerebral white matter, with an additional focus within the medial right cerebellar lobe. This white matter disease is nonspecific as to etiology, but can be consistent with the clinical indication of demyelination. Additional differential considerations described above. 2. No abnormal enhancement of the above-mentioned white matter disease to suggest active demyelination. 3. Additional findings described above. Electronically signed by: Bradley Mobley On 11/13/2018 20:59:51 PM
[2018-11-13] MEDS: risperiDONE 2 MG TAB PO SCH (21:16)
[2018-11-13] MEDS: MIRTAZAPINE 15 MG TAB PO SCH (21:16)
[2018-11-13] MEDS: ATORVASTATIN 20 MG TAB PO SCH (21:16)
[2018-11-13 23:59] VITALS: BP 131/63
[2018-11-14 04:00] VITALS: BP 137/79
[2018-11-14 05:24] LABS: BASO % 0.7 % (0.0-1.0); EOS # 0.3 10^3/uL (0.0-0.50); EOS % 6.1 % (0.0-3.0); HEMATOCRIT 35.3 % (36.0-47.0); HEMOGLOBIN 12.2 g/dl (12.0-15.5); LYMPH # 1.5 10^3/uL (1.5-4.5); LYMPH % 36.2 % (24.0-44.0); MEAN CORPUSCULAR HEMOGLOBIN 29.2 pg (27.0-33.0); MEAN CORPUSCULAR HGB CONC 34.6 g/dl (32.0-36.5); MEAN CORPUSCULAR VOLUME 84.4 fl (80.0-96.0); MONO # 0.4 10^3/uL (0.0-0.8); PLATELET COUNT, AUTOMATED 220 10^3/uL (150-450); RED BLOOD COUNT 4.18 10^6/uL (4.00-5.40); WHITE BLOOD COUNT 4.2 10^3/uL (4.0-10.0)
[2018-11-14 05:40] LABS: BLOOD UREA NITROGEN 8 MG/DL (7-18); CALCIUM LEVEL 8.5 MG/DL (8.5-10.1); CARBON DIOXIDE LEVEL 26 MEQ/L (21-32); CHLORIDE LEVEL 104 MEQ/L (98-107); CREATININE FOR GFR 0.68 MG/DL (0.55-1.30); GLOMERULAR FILTRATION RATE > 60.0 (>58); GLUCOSE, FASTING 126 MG/DL (70-100); POTASSIUM SERUM 3.3 MEQ/L (3.5-5.1); SODIUM LEVEL 139 MEQ/L (136-145)
[2018-11-14 08:00] VITALS: BP 134/90
[2018-11-14] MEDS: CYANOCOBALAMIN 1,000 MCG/ML VIAL (J3420) IM SCH (09:10)
[2018-11-14] MEDS: BACLOFEN 10 MG TAB PO SCH ×2 (09:10→21:00)
[2018-11-14] MEDS: PANTOPRAZOLE 40MG TAB (PROTONIX) PO SCH (09:10)
[2018-11-14] MEDS: ASPIRIN 81 MG CHEW TABLET PO SCH (09:10)
[2018-11-14] MEDS: HumaLOG INSULIN (NovoLOG) PER UNIT SC SCH ×4 (09:10→21:00)
[2018-11-14] MEDS: QUEtiapine FUMARATE 50 MG TAB PO SCH ×3 (09:11→21:00)
[2018-11-14] MEDS: VENLAFAXINE **XR** 75MG CAPSULE PO SCH (09:11)
[2018-11-14] MEDS: GLIMEPIRIDE 2 MG TAB PO SCH (09:11)
[2018-11-14 12:00] VITALS: BP 143/85
[2018-11-14] MEDS: OXcarbazepine 300 MG TAB PO SCH ×2 (12:34→21:01)
--- NOTE | 2018-11-14 15:05 | IPNPDOC ---
Date Seen The patient was seen on 11/14/18. Progress Note SUBJECTIVE: Patient reports that she is having a headache in that she has persistent numbness in her right lower extremity she denies any visual changes no new weakness or paralysis no changes in her bladder or bowel habits no fevers or chills OBJECTIVE PHYSICAL EXAMINATION: VITAL SIGNS: Please see below. GENERAL: Morbidly obese middle-aged female sleeping is entered the room easily arousable to verbal stimuli she does not appear to be in any acute distress HEENT: Cranial nerves II 12 grossly intact CARDIOVASCULAR: Is 1 S2 regular. RESPIRATORY: With distant secondary to body habitus clear. ABDOMINAL: Grossly obese bowel sounds present abdomen soft EXTREMITIES: No clubbing cyanosis or edema NEUROLOGICAL:5/5 strength throughout, unchanged from previous documented exams LABORATORY DATA, IMAGING STUDIES, MICROBIOLOGY: Please see below. DVT prophylaxis ordered?: Ambulating and teds ASSESSMENT AND PLAN: This is a 47-year-old female with right hemisensory loss]. PROBLEMS: 1. Right hemisensory loss: Ophthalmology help greatly appreciated does not appear to have any optic neuritis there is no edema of the disc as per ophthalmology note. There is certainly some concern for demyelinating disease and hemorrhoids been checked as per neurology will follow the recommendations as they become available. Her B12 level was significantly low and as such I'll start her on repletion as well as Ativan on a slow. The patient does have a headache today I'll provide her with acetaminophen she has not tried this as of yet should this fail it may require more intense abortive therapy 2. Insulin-dependent diabetes: Continue with sliding scale. Continue with glimepiride 3. Psychiatric disorder: Continue with Abilify Remeron Risperdal Trileptal and Seroquel and Effexor. 4. Gastroenteritis reflux disease: Continue with pantoprazole 5. Chronic pain: Continue with baclofen 6. Dyslipidemia: Continue his Lipitor 7. Polycystic ovarian syndrome home metformin currently on hold consider restarting in the near future 8. Morbid obesity:, Dictating care likely related to her antipsychotic medications DISPOSITION: Pending clinical improvement PTOT. VS, I&O, 24H, Fishbone Vital Signs/I&O Vital Signs Date Time Temp Pulse Resp B/P (MAP) Pulse Ox O2 Delivery O2 Flow Rate FiO2 11/14/18 12:00 97.0 94 18 143/85 (104) 96 4/10/19 03:00 Room Air I&O- Last 24 Hours up to 6 AM 11/14/18 06:00 Intake Total 1140 ml Output Total 1650 ml Balance -510 ml Laboratory Data 24H LABS Laboratory Tests 2 11/13/18 17:49: Erythrocyte Sedimentation Rate 46H, Vitamin B12 Level 203L, Thyroid Stimulating Hormone (TSH) 1.260 11/13/18 18:01: Bedside Glucose (Misc Panel) 111H 11/13/18 21:02: Bedside Glucose (Misc Panel) 164H 11/14/18 04:22: Immature Granulocyte % (Auto) 0.0, White Blood Count 4.2, Red Blood Count 4.18, Hemoglobin 12.2, Hematocrit 35.3L, Mean Corpuscular Volume 84.4, Mean Corpuscular Hemoglobin 29.2, Mean Corpuscular Hemoglobin Concent 34.6, Red Cell Distribution Width 13.6, Platelet Count 220, Neutrophils (%) (Auto) 48.0, Lymphocytes (%) (Auto) 36.2, Monocytes (%) (Auto) 9.0H, Eosinophils (%) (Auto) 6.1H, Basophils (%) (Auto) 0.7, Neutrophils # (Auto) 2.0, Lymphocytes # (Auto) 1.5, Monocytes # (Auto) 0.4, Eosinophils # (Auto) 0.3, Basophils # (Auto) 0.0, Nucleated Red Blood Cells % (auto) 0.0, Anion Gap 9, Glomerular Filtration Rate > 60.0, Blood Urea Nitrogen 8, Creatinine 0.68, Sodium Level 139, Potassium Level 3.3L, Chloride Level 104, Carbon Dioxide Level 26, Calcium Level 8.5 11/14/18 07:33: 11/14/18 12:08: Bedside Glucose (Misc Panel) 276H CBC/BMP Laboratory Tests 11/14/18 04:22 Red Blood Count 4.18, Mean Corpuscular Volume 84.4, Mean Corpuscular Hemoglobin 29.2, Mean Corpuscular Hemoglobin Concent 34.6, Red Cell Distribution Width 13.6, Neutrophils (%) (Auto) 48.0, Lymphocytes (%) (Auto) 36.2, Monocytes (%) (Auto) 9.0 H, Eosinophils (%) (Auto) 6.1 H, Basophils (%) (Auto) 0.7, Leann trophils # (Auto) 2.0, Lymphocytes # (Auto) 1.5, Monocytes # (Auto) 0.4, Eosinophils # (Auto) 0.3, Basophils # (Auto) 0.0, Calcium Level 8.5 JOON KAUR MD Nov 14, 2018 15:05
[2018-11-14 16:15] VITALS: BP 141/84
[2018-11-14] MEDS: MIRTAZAPINE 15 MG TAB PO SCH (21:00)
[2018-11-14] MEDS: risperiDONE 2 MG TAB PO SCH (21:01)
[2018-11-14] MEDS: ATORVASTATIN 20 MG TAB PO SCH (21:01)
[2018-11-14] MEDS: ACETAMINOPHEN TAB 650MG DOSE (2X325MG) PO PRN (21:10)
[2018-11-14 22:00] VITALS: BP 134/74
[2018-11-15 06:00] VITALS: BP 146/87
[2018-11-15 06:26] LABS: BASO % 0.7 % (0.0-1.0); EOS # 0.2 10^3/uL (0.0-0.50); EOS % 5.7 % (0.0-3.0); HEMATOCRIT 35.7 % (36.0-47.0); LYMPH # 1.4 10^3/uL (1.5-4.5); LYMPH % 35.2 % (24.0-44.0); MEAN CORPUSCULAR HEMOGLOBIN 28.2 pg (27.0-33.0); MEAN CORPUSCULAR HGB CONC 33.6 g/dl (32.0-36.5); MEAN CORPUSCULAR VOLUME 83.8 fl (80.0-96.0); MONO # 0.4 10^3/uL (0.0-0.8); MONO % 9.5 % (0.0-5.0); NEUTROPHILS % 48.7 % (36.0-66.0); PLATELET COUNT, AUTOMATED 213 10^3/uL (150-450); RED BLOOD COUNT 4.26 10^6/uL (4.00-5.40)
[2018-11-15 06:50] LABS: BLOOD UREA NITROGEN 6 MG/DL (7-18); CALCIUM LEVEL 8.5 MG/DL (8.5-10.1); CARBON DIOXIDE LEVEL 25 MEQ/L (21-32); CHLORIDE LEVEL 104 MEQ/L (98-107); CREATININE FOR GFR 0.73 MG/DL (0.55-1.30); GLOMERULAR FILTRATION RATE > 60.0 (>58); GLUCOSE, FASTING 163 MG/DL (70-100); POTASSIUM SERUM 3.5 MEQ/L (3.5-5.1); SODIUM LEVEL 138 MEQ/L (136-145)
[2018-11-15] MEDS: QUEtiapine FUMARATE 50 MG TAB PO SCH ×2 (08:55→15:32)
[2018-11-15] MEDS: PANTOPRAZOLE 40MG TAB (PROTONIX) PO SCH (08:55)
[2018-11-15] MEDS: GLIMEPIRIDE 2 MG TAB PO SCH (08:56)
[2018-11-15] MEDS: ASPIRIN 81 MG CHEW TABLET PO SCH (08:56)
[2018-11-15] MEDS: OXcarbazepine 300 MG TAB PO SCH (08:56)
[2018-11-15] MEDS: BACLOFEN 10 MG TAB PO SCH (08:56)
[2018-11-15] MEDS: VENLAFAXINE **XR** 75MG CAPSULE PO SCH (08:56)
[2018-11-15] MEDS: CYANOCOBALAMIN 1,000 MCG/ML VIAL (J3420) IM SCH (08:57)
[2018-11-15] MEDS: HumaLOG INSULIN (NovoLOG) PER UNIT SC SCH ×2 (08:59→13:17)
[2018-11-15] MEDS: ACETAMINOPHEN TAB 650MG DOSE (2X325MG) PO PRN (08:59)
[2018-11-15] MEDS ORDERED: LORazepam 2 MG/ML VIAL (J2060) IV STA (11:03)
--- NOTE | 2018-11-15 12:58 | REP ---
MRI cervical spine without and with IV gadolinium: History: Concern for demyelinating disease. Comparison MRI study is from May 17, 2011. Technique: Sagittal and axial T1 and T2-weighted scans are acquired in the usual fashion with and without fat saturation. Sequences include spin echo, turbo spin-echo, and STIR imaging sequences. Gadolinium enhancement dose is 20 ml of intravenous ProHance. MRI findings: Cervical vertebral body heights are preserved and alignment is normal. Cortical and medullary bone signal intensity are normal on T1 and T2-weighted scans. The cervical cord is normal in coarse, caliber and signal intensity on T1 and T2-weighted scans. No focal cord lesion is seen. No abnormal gadolinium enhancement is appreciated. No cord compressive lesion is seen. There is a small central disc protrusion at C5-6 effacing the ventral subarachnoid space but not compressing the cord. This is slightly more prominent than on the May 17, 2011 study. At C6-7 there is central disc bulging effacing the ventral subarachnoid space. There is minimal uncovertebral spurring on the right at the C3-4 and C4-5. This is unchanged. Impression: There is no evidence of cervical cord demyelinating lesion or cord compressive lesion. No abnormal gadolinium enhancement is seen. There are mild degenerative disc changes at C5-6 and C6-7 and uncovertebral spurring is noted on the right at C3-4 and C4-5. Electronically Signed by Gee Triplett MD 11/15/2018 02:31 P
[2018-11-15 14:00] VITALS: BP 142/83
[2018-11-15] MEDS ORDERED: B-12100021 PO (14:13)
--- NOTE | 2018-11-15 22:13 | DSES ---
DATE OF ADMISSION: 11/11/2018 DATE OF DISCHARGE: 11/15/2018 DISCHARGE DIAGNOSIS: Complex migraines. SECONDARY DIAGNOSES: 1. Right hemisensory loss. 2. Insulin-dependent diabetes. 3. Psychiatric disorders. 4. Gastroesophageal reflux disease. 5. Chronic pain. 6. Dyslipidemia. 7. Polycystic ovarian syndrome. 8. Morbid obesity. HOSPITAL COURSE: The patient is a 47-year-old female who had presented with right hemisensory loss, numbness in her right leg, as well as numbness in her right arm, numbness and pain in her right eye. She was seen and evaluated, though initially there was concern for cerebrovascular accident (CVA) versus complex migraine. She was admitted to the hospitalist service. She was seen in consultation by Dr. Tsang of neurology as well as the ophthalmology service. There was concern for optic neuritis, but her disc did not reveal any edema, and exam was not consistent with this. MRI of the brain did not reveal any stroke. There was also concern for possible demyelinating disease, and as such she did have an extensive workup, including MRI/MRA of the brain, carotid MRI up to the dissection, cervical and thoracic spine MRIs with and without contrast, which were unrevealing for significant demyelinating disease. She was noted to have a low B12 level and started on supplementation during this stay. Lyme antibodies, erythrocyte sedimentation rate (ESR), antinuclear antibody (VICENTA), rheumatoid factor, thyroid-stimulating hormone (TSH), angiotensin-converting enzyme (JOSE) level, and antineutrophil cytoplasmic antibodies (ANCA) antibodies were also sent as part of an extensive workup. At this time it is felt that her symptoms were secondary to complex migraines. SUBJECTIVE: This morning the patient tells me she is feeling well. She would like to go home. She is excited about her upcoming birthday, a libertarian which is tomorrow. OBJECTIVE: VITAL SIGNS: Temperature 96.6, pulse 91, respiratory rate 17, blood pressure (BP) 146/80 with an oxygen saturation 97% on room air. GENERAL: She is a morbidly obese female sleeping peacefully as I enter the room, accompanied by her . She is easily arousable to verbal stimuli. HEENT: Hirsutism. Moist mucous membranes. No elevation in central venous pressure (CVP). CARDIOVASCULAR: S1, S2, regular. RESPIRATORY: Clear. ABDOMEN: Benign. EXTREMITIES: No clubbing, cyanosis, or edema. She has 5/5 strength in all four extremities. There is some decreased sensory loss over the left lower extremity. LABORATORY STUDIES: WBC 4.0, hemoglobin 12.0, platelet count is 213. Chemistry panel: Sodium 138, potassium 3.5, chloride 104, bicarbonate 25, BUN 6, creatinine 0.7. An JOSE level is pending. A TSH within normal limits. A B12 level was low at 203. ANCA antibodies currently pending as well as are Lyme titers. Please see the medical record for full imaging reports, as she had numerous studies completed. Note there was no significant carotid disease. No cerebrovascular accident (CVA). No intracranial stenosis. No significant evidence for demyelinating disease. ASSESSMENT AND PLAN: This is a 47-year-old female with right-sided headache and right hemisensory loss. 1. Right-sided headache and right hemisensory loss, likely secondary to complex migraine. Will provider her a dose of Fioricet. At this time she previously received Tylenol without significant improvement in her symptoms. I have spoken with Dr. Tsang of neurology, who agrees this is likely complex migraine, less likely demyelinating disease. She can followup with neurology clinic within 2 weeks and with her primary care physician (PCP) within 7 days. Her activity and diet are as tolerated. 2. Insulin-dependent diabetes. She will resume her home regimen upon discharge of glimepiride and metformin. 3. Polycystic ovarian syndrome. She certainly exhibits the phenotype and she should be continued on her metformin upon discharge. 4. Significant psychiatric disorders. She is continued on her aripiprazole, clonazepam, Remeron, Trileptal, Seroquel, Risperdal, and venlafaxine. 5. Gastroesophageal reflux disease. She is continued on her proton pump inhibitor (PPI). 6. Chronic pain. She was continued on Baclofen. 7. Dyslipidemia. She was continued on Lipitor. 8. Morbid obesity, complicating care. Likely secondary to antipsychotic medications and per polycystic ovarian syndrome (PCOS). DISPOSITION: The patient is being discharged home to the care of her . She has been cleared by physical therapy (PT)/occupational therapy (OT). She is at her functional baseline. Her clinical symptoms have improved. She will followup with her PCP in [address] Tsang within 2 weeks. If her symptoms worsen, she should call the neurology office. DISCHARGE MEDICATIONS: - vitamin B12 at 1000 mcg daily - aripiprazole 5 mg at bedtime - atorvastatin 10 mg at bedtime - baclofen 20 mg every morning as needed for muscle spasm, 40 mg at bedtime for muscle spasm - clonazepam .5 mg twice a day as needed for anxiety - glimepiride 2 mg daily - ibuprofen 600 mg twice a day - ibuprofen with pseudoephedrine one tablet twice daily as needed for sinus congestion - metformin 1 gram twice a day - Remeron 15 mg at bedtime - Trileptal 600 mg twice a day - pantoprazole 40 mg at bedtime - quetiapine 50 mg three times a day - Risperdal 4 mg at bedtime - venlafaxine 150 mg daily Forty-five minutes spent organizing disposition.
[2018-11-18 00:06] LABS: ANCA-ATYPICAL <1:20 titer (Neg:<1:20); CYTOPLASMIC NEUTROP AB ANCA-C <1:20 titer (Neg:<1:20); IgG P18 AB Absent (.); IgG P23 AB Absent (.); IgG P28 AB Absent (.); IgG P30 AB Absent (.); IgG P39 AB Absent (.); IgG P41 AB Absent (.); IgG P45 AB Absent (.); IgG P66 AB Absent (.); IgG P93 AB Absent (.); IgM P23 AB Absent (.); IgM P39 AB Absent (.); IgM P41 AB Absent (.); LYME IgG WB INTERPRETATION Negative (.); LYME IgM WB INTERPRETATION Negative (.); PERINUCLEAR AB ANCA-P <1:20 titer (Neg:<1:20)
== END 2018-11-15 15:47 | disposition home or self-care (01) | DRG 103 ==
LOC: M ED 19:48 → UNDOADMOB 19:49 → OBSVTOIN 19:49 → M ED INP 19:49 → INTOOBSV 19:49 → M PCU 11-12 03:12 → M ED INP 11-12 03:12 → M MSPAV 11-14 16:13
PROVIDERS: ADMIT Internal Medicine Nephrology; ATTEND Internal Medicine
DX: G43.109 Migraine with aura, not intractable, without status migrainosus (principal); Z68.41 Body mass index [BMI] 40.0-44.9, adult; E66.01 Morbid (severe) obesity due to excess calories; K21.9 Gastro-esophageal reflux disease without esophagitis; E78.5 Hyperlipidemia, unspecified; E11.41 Type 2 diabetes mellitus with diabetic mononeuropathy; G89.29 Other chronic pain; E28.2 Polycystic ovarian syndrome; H90.5 Unspecified sensorineural hearing loss; Z79.899 Other long term (current) drug therapy; F31.9 Bipolar disorder, unspecified; F41.9 Anxiety disorder, unspecified; L40.8 Other psoriasis; Z88.0 Allergy status to penicillin; Z88.8 Allergy status to other drugs, medicaments and biological substances; Z91.018 Allergy to other foods; G47.00 Insomnia, unspecified; F20.9 Schizophrenia, unspecified; Z79.52 Long term (current) use of systemic steroids; Z87.891 Personal history of nicotine dependence

== ENCOUNTER 2018-11-29 19:29 | Emergency (ER) | payer MEDICARE ==
[~2018-11-29] VITALS: Ht 162.6 cm; Wt 112.7 kg
[~2018-11-29 19:29] MED LIST changes: +ADVITAB PO; +B-12100021 PO; +GLIM2TAB PO; +MIRT1TAB15 PO; +PANT-23 PO; +QUET5TAB PO; +REME15TA PO; +RISP4TAB33 PO; +VENL150C43 PO
[2018-11-29] MEDS ORDERED: diphenhydrAMINE INJ 50MG/ML VIAL (J1200) IV ONE (21:15)
[2018-11-29] MEDS ORDERED: ACETAMINOPHEN 500 MG TAB PO ONE (21:15)
[2018-11-29] MEDS ORDERED: NS 1,000 ML IV ONE (21:15)
[2018-11-29] MEDS ORDERED: PROCHLORPERAZINE 10 MG/2 ML VIAL (J0780) IV ONE (21:30)
[2018-11-29 22:00] LABS: BASO % 0.6 % (0.0-1.0); EOS # 0.2 10^3/uL (0.0-0.50); HEMATOCRIT 36.3 % (36.0-47.0); HEMOGLOBIN 12.3 g/dl (12.0-15.5); LYMPH # 1.4 10^3/uL (1.5-4.5); LYMPH % 25.7 % (24.0-44.0); MEAN CORPUSCULAR HEMOGLOBIN 29.2 pg (27.0-33.0); MEAN CORPUSCULAR HGB CONC 33.9 g/dl (32.0-36.5); MEAN CORPUSCULAR VOLUME 86.2 fl (80.0-96.0); MONO # 0.5 10^3/uL (0.0-0.8); MONO % 9.8 % (0.0-5.0); NEUTROPHILS # 3.2 10^3/uL (1.8-7.7); NEUTROPHILS % 59.5 % (36.0-66.0); PLATELET COUNT, AUTOMATED 222 10^3/uL (150-450); RED BLOOD COUNT 4.21 10^6/uL (4.00-5.40); WHITE BLOOD COUNT 5.3 10^3/uL (4.0-10.0)
[2018-11-29 22:19] LABS: BLOOD UREA NITROGEN 9 MG/DL (7-18); CALCIUM LEVEL 8.2 MG/DL (8.5-10.1); CARBON DIOXIDE LEVEL 25 MEQ/L (21-32); CHLORIDE LEVEL 103 MEQ/L (98-107); CREATININE FOR GFR 0.83 MG/DL (0.55-1.30); GLOMERULAR FILTRATION RATE > 60.0 (>58); GLUCOSE, FASTING 178 MG/DL (70-100); SODIUM LEVEL 136 MEQ/L (136-145)
[2018-11-29 22:34] LABS: HCG, SERUM QUALITATIVE NEGATIVE (NEGATIVE)
[2018-11-29] MEDS ORDERED: KETOROLAC 30 MG/ML VIAL (J1885) IV ONE (22:45)
[2018-11-29] MEDS ORDERED: dexameTHASONE 4 MG/ML 1ML VIAL (J1100) IV ONE (22:45)
[2018-11-29 22:58] VITALS: BP 109/65
== END 2018-11-30 | disposition home or self-care (01) ==
LOC: M ED 19:29
DX: G43.909 Migraine, unspecified, not intractable, without status migrainosus (principal); E11.9 Type 2 diabetes mellitus without complications; Z79.84 Long term (current) use of oral hypoglycemic drugs; Z79.899 Other long term (current) drug therapy; Z88.0 Allergy status to penicillin; Z88.8 Allergy status to other drugs, medicaments and biological substances; Z91.018 Allergy to other foods; Z87.891 Personal history of nicotine dependence
CPT/HCPCS: 36415; 80048; 84703; 85025; 96361; 96374; 96375; 99284; J0780; J1100; J1200; J1885

== ENCOUNTER 2019-03-26 04:17 | Emergency (ER) | payer MEDICARE ==
[~2019-03-26] VITALS: Ht 162.6 cm; Wt 110.5 kg
[~2019-03-26 04:17] MED LIST changes: +CYAN500T8 PO; +MM S100C PO; -STOO100C PO; -TRAZ-160 PO; +TRAZ-252 PO; -VITA500T3 PO
[2019-03-26] MEDS ORDERED: NS 1,000 ML IV ONE (05:00)
[2019-03-26 05:21] LABS: BASO # 0.1 10^3/uL (0.0-0.2); BASO % 0.8 % (0.0-1.0); EOS # 0.3 10^3/uL (0.0-0.50); EOS % 4.3 % (0.0-3.0); HEMATOCRIT 41.6 % (36.0-47.0); HEMOGLOBIN 14.2 g/dl (12.0-15.5); MEAN CORPUSCULAR HEMOGLOBIN 29.1 pg (27.0-33.0); MEAN CORPUSCULAR HGB CONC 34.1 g/dl (32.0-36.5); MEAN CORPUSCULAR VOLUME 85.2 fl (80.0-96.0); MONO # 0.5 10^3/uL (0.0-0.8); MONO % 7.8 % (0.0-5.0); NEUTROPHILS # 3.5 10^3/uL (1.8-7.7); NEUTROPHILS % 54.8 % (36.0-66.0); PLATELET COUNT, AUTOMATED 271 10^3/uL (150-450); RED BLOOD COUNT 4.88 10^6/uL (4.00-5.40); WHITE BLOOD COUNT 6.3 10^3/uL (4.0-10.0)
[2019-03-26 05:22] LABS: VENOUS BASE EXCESS -3.6 (-2.0-2.0); VENOUS HCO3 22.2 MEQ/L (23.0-27.0); VENOUS O2 SATURATION 97.1 % (60.0-80.0); VENOUS PARTIAL PRESSURE CO2 42.9 mmHg (38.0-50.0); VENOUS PH 7.332 UNITS (7.330-7.430); VENOUS STANDARD HCO3 21.5 MEQ/L; VENOUS TOTAL CO2 23.5 MEQ/L (24.0-28.0)
[2019-03-26 05:29] LABS: ACETONE/KETONE 2.81 MG/DL (<2.81)
[2019-03-26 05:31] LABS: OSMOLALITY SERUM 303 MOSM/KG (275-295)
[2019-03-26 05:42] LABS: HEMOGLOBIN A1c 8.7 %
[2019-03-26 05:58] LABS: BLOOD UREA NITROGEN 10 MG/DL (7-18); CALCIUM LEVEL 8.6 MG/DL (8.5-10.1); CARBON DIOXIDE LEVEL 21 MEQ/L (21-32); CHLORIDE LEVEL 102 MEQ/L (98-107); CREATININE FOR GFR 0.92 MG/DL (0.55-1.30); GLOMERULAR FILTRATION RATE > 60.0 (>58); GLUCOSE, FASTING 370 MG/DL (70-100); POTASSIUM SERUM 4.1 MEQ/L (3.5-5.1); SODIUM LEVEL 137 MEQ/L (136-145)
[2019-03-26] MEDS ORDERED: ONDANSETRON 4MG/2ML VIAL (J2405) As Ordered ONE (06:17)
[2019-03-26] MEDS ORDERED: POTASSIUM CHLORIDE 10 MEQ SR TABLET PO ONE (06:30)
[2019-03-26] MEDS ORDERED: ONDANSETRON 4MG/2ML VIAL (J2405) IV ONE (06:30)
[2019-03-26] MEDS ORDERED: HumuLIN R (REGULAR) INSULIN (NovoLIN R) **100U/ML** PER UNIT IV ONE (06:30)
[2019-03-26 07:21] LABS: VENOUS HCO3 18.4 MEQ/L (23.0-27.0); VENOUS O2 SATURATION 99.2 % (60.0-80.0); VENOUS PARTIAL PRESSURE CO2 33.3 mmHg (38.0-50.0); VENOUS PARTIAL PRESSURE O2 184.8 mmHg (30.0-50.0); VENOUS PH 7.361 UNITS (7.330-7.430); VENOUS STANDARD HCO3 19.6 MEQ/L; VENOUS TOTAL CO2 19.5 MEQ/L (24.0-28.0)
[2019-03-26 08:04] VITALS: BP 128/62
== END 2019-03-26 08:25 | disposition home or self-care (01) ==
LOC: M ED 04:17
DX: E11.65 Type 2 diabetes mellitus with hyperglycemia (principal); F31.9 Bipolar disorder, unspecified; Z79.899 Other long term (current) drug therapy; Z79.84 Long term (current) use of oral hypoglycemic drugs; Z88.0 Allergy status to penicillin; Z88.8 Allergy status to other drugs, medicaments and biological substances; Z91.018 Allergy to other foods
CPT/HCPCS: 80048; 81001; 82010; 82803; 83036; 83930; 85025; 93041; 96374; 96375; 99284; J2405

== ENCOUNTER 2019-04-02 01:13 | Emergency (ER) | payer MEDICARE ==
[~2019-04-02] VITALS: Ht 162.6 cm; Wt 112.3 kg
[2019-04-02] MEDS ORDERED: GLIM4TAB PO ×2 (01:26→07:00)
[2019-04-02] MEDS ORDERED: NS IV ONE (02:30)
[2019-04-02] MEDS ORDERED: DILUENT IV ONE (02:30)
[2019-04-02 02:38] LABS: BASO # 0.1 10^3/uL (0.0-0.2); BASO % 1.1 % (0.0-1.0); EOS # 0.3 10^3/uL (0.0-0.50); HEMATOCRIT 39.4 % (36.0-47.0); LYMPH # 2.2 10^3/uL (1.5-4.5); LYMPH % 32.8 % (24.0-44.0); MEAN CORPUSCULAR HEMOGLOBIN 30.4 pg (27.0-33.0); MEAN CORPUSCULAR HGB CONC 35.5 g/dl (32.0-36.5); MEAN CORPUSCULAR VOLUME 85.5 fl (80.0-96.0); MONO # 0.6 10^3/uL (0.0-0.8); MONO % 9.4 % (0.0-5.0); NEUTROPHILS # 3.4 10^3/uL (1.8-7.7); NEUTROPHILS % 51.2 % (36.0-66.0); PLATELET COUNT, AUTOMATED 301 10^3/uL (150-450); RED BLOOD COUNT 4.61 10^6/uL (4.00-5.40); WHITE BLOOD COUNT 6.6 10^3/uL (4.0-10.0)
[2019-04-02 02:41] LABS: VENOUS HCO3 20.8 MEQ/L (23.0-27.0); VENOUS O2 SATURATION 95.6 % (60.0-80.0); VENOUS PARTIAL PRESSURE CO2 37.2 mmHg (38.0-50.0); VENOUS PARTIAL PRESSURE O2 83.2 mmHg (30.0-50.0); VENOUS PH 7.365 UNITS (7.330-7.430); VENOUS STANDARD HCO3 21.1 MEQ/L; VENOUS TOTAL CO2 21.9 MEQ/L (24.0-28.0)
[2019-04-02 02:52] LABS: OSMOLALITY SERUM 309 MOSM/KG (275-295)
[2019-04-02 03:01] LABS: BLOOD UREA NITROGEN 14 MG/DL (7-18); CALCIUM LEVEL 8.6 MG/DL (8.5-10.1); CARBON DIOXIDE LEVEL 22 MEQ/L (21-32); CHLORIDE LEVEL 95 MEQ/L (98-107); CREATININE FOR GFR 1.02 MG/DL (0.55-1.30); GLOMERULAR FILTRATION RATE > 60.0 (>58); GLUCOSE, FASTING 591 MG/DL (70-100); POTASSIUM SERUM 4.3 MEQ/L (3.5-5.1); SODIUM LEVEL 130 MEQ/L (136-145)
--- NOTE | 2019-04-02 03:30 | REPVR ---
EXAM: CT Head Without Contrast EXAM DATE/TIME: 04/02/19 (2:27am) CLINICAL HISTORY: 48 year old female with dizziness. Syncope. TECHNIQUE: Imaging protocol: Computed tomography of the head without contrast. Radiation optimization: All CT scans at this facility use at least one of these dose optimization techniques: automated exposure control; mA and/or kV adjustment per patient size (includes targeted exams where dose is matched to clinical indication); or iterative reconstruction. COMPARISON: CT HEAD of 11/11/18 FINDINGS: Brain: Some atrophy. No acute hemorrhage. No mass effect. Ventricles: Normal. No ventriculomegaly. Bones/joints: Unremarkable. No acute fracture. Sinuses: Visualized sinuses are unremarkable. No air-fluid levels. Mastoid air cells: Visualized mastoid air cells are well aerated. No mastoid effusion. Soft tissues: Unremarkable. IMPRESSION: No acute intracranial pathology is appreciated. The brain had a similar appearance in November 2018. Electronically signed by: Renetta Thompson On 04/02/2019 03:29:59 AM
--- NOTE | 2019-04-02 03:33 | REPVR ---
EXAM: CT Cervical Spine Without Contrast EXAM DATE/TIME: 04/02/19 (2:27am) CLINICAL HISTORY: 48 year old female. Recent fall. Initial encounter. Concussion / head injury. Syncope. TECHNIQUE: Imaging protocol: Computed tomography images of the cervical spine without contrast. Radiation optimization: All CT scans at this facility use at least one of these dose optimization techniques: automated exposure control; mA and/or kV adjustment per patient size (includes targeted exams where dose is matched to clinical indication); or iterative reconstruction. COMPARISON: No relevant prior studies available FINDINGS: Vertebrae: No acute fracture. Normal alignment. Discs/Spinal canal/Neural foramina: Some degenerative changes (especially in the upper cervical spine). No spinal stenosis. No neural foraminal narrowing. Soft tissues: Unremarkable. Lungs: Lung apices are normal. IMPRESSION: No acute findings. Electronically signed by: Renetta Thompson On 04/02/2019 03:33:28 AM
[2019-04-02] MEDS ORDERED: HumuLIN R (REGULAR) INSULIN (NovoLIN R) **100U/ML** PER UNIT IV ONE (04:15)
[2019-04-02] MEDS ORDERED: METOCLOPRAMIDE INJ 10MG/2ML VIAL (J2765) IV ONE (06:00)
[2019-04-02 07:30] VITALS: BP 179/82
--- NOTE | 2019-04-02 21:18 | ECGEPIP ---
[facility] - ED Test Date: 2019-04-02 Pat Name: LARRY REHMAN Department: Room: - Gender: Female [employer]: : 1970 Requested By: REEMA Torres Order Number: [id number] Reading MD: Carmen Montelongo Measurements Intervals [place] Rate: 105 P: 41 GA: 104 QRS: 19 QRSD: 140 T: 30 QT: 387 QTc: 513 Interpretive Statements SINUS TACHYCARDIA WITH SHORT GA INTERVAL RIGHT BUNDLE BRANCH BLOCK DECREASED RATE 11/11/18 Electronically Signed on 04-02-2019 21:18:24 EDT by Carmen Montelongo
== END 2019-04-02 07:38 | disposition home or self-care (01) ==
LOC: M ED 01:13
DX: R55 Syncope and collapse (principal); E11.65 Type 2 diabetes mellitus with hyperglycemia; R00.0 Tachycardia, unspecified; I45.10 Unspecified right bundle-branch block; Z87.891 Personal history of nicotine dependence; Z91.018 Allergy to other foods; Z79.899 Other long term (current) drug therapy; Z79.84 Long term (current) use of oral hypoglycemic drugs
CPT/HCPCS: 70450; 72125; 80047; 80048; 82010; 82803; 83930; 84443; 84702; 85025; 93005; 93041; 96361; 96374; 96375; 99285; J2765

== ENCOUNTER 2019-04-08 05:09 | Inpatient (IN) | payer MEDICARE ==
[~2019-04-08] VITALS: Ht 162.6 cm; Wt 107.6 kg
[~2019-04-08 05:09] MED LIST changes: +GLIM4TAB PO
[2019-04-08] MEDS ORDERED: NS 1,000 ML IV ONE (05:30)
[2019-04-08 05:43] LABS: BASO % 0.5 % (0.0-1.0); EOS # 0.2 10^3/uL (0.0-0.5); EOS % 4.8 % (0.0-3.0); HEMATOCRIT 33.3 % (36.0-47.0); HEMOGLOBIN 11.6 g/dl (12.0-15.5); LYMPH # 1.4 10^3/uL (1.5-5.0); LYMPH % 33.1 % (24.0-44.0); MEAN CORPUSCULAR HEMOGLOBIN 30.1 pg (27.0-33.0); MEAN CORPUSCULAR HGB CONC 34.8 g/dl (32.0-36.5); MEAN CORPUSCULAR VOLUME 86.5 fl (80.0-96.0); MONO # 0.4 10^3/uL (0.0-0.8); MONO % 10.3 % (0.0-5.0); NEUTROPHILS # 2.1 10^3/uL (1.5-8.5); NEUTROPHILS % 50.8 % (36.0-66.0); PLATELET COUNT, AUTOMATED 204 10^3/uL (150-450); RED BLOOD COUNT 3.85 10^6/uL (4.00-5.40); WHITE BLOOD COUNT 4.2 10^3/uL (4.0-10.0)
[2019-04-08 05:46] LABS: ABG BASE EXCESS -6.8 (-2.0-2.0); ABG O2 SATURATION 96.9 % (95.0-99.0); ABG PARTIAL PRESSURE CO2 33.8 mmHg (35.0-45.0); ABG PARTIAL PRESSURE O2 94.5 mmHg (75.0-100.0); ABG STANDARD HCO3 18.9 MEQ/L (22.0-26.0); ABG pH (ARTERIAL) 7.344 UNITS (7.350-7.450)
[2019-04-08 06:20] LABS: OSMOLALITY SERUM 303 MOSM/KG (275-295)
[2019-04-08 06:31] LABS: ACETAMINOPHEN LEVEL < 2.0 UG/ML (10.0-30.0); ALT/SGPT 39 U/L (12-78); BILIRUBIN,DIRECT < 0.1 MG/DL (0.0-0.2); BILIRUBIN,TOTAL 0.2 MG/DL (0.2-1.0); BLOOD UREA NITROGEN 11 MG/DL (7-18); CALCIUM LEVEL 8.2 MG/DL (8.5-10.1); CARBON DIOXIDE LEVEL 20 MEQ/L (21-32); CHLORIDE LEVEL 104 MEQ/L (98-107); CPK CREATINE PHOSPHOKINASE 214 U/L (26-192); CREATININE FOR GFR 0.77 MG/DL (0.55-1.30); ETHYL ALCOHOL (ETHANOL) < 0.003 % (0.000-0.010); GLOMERULAR FILTRATION RATE > 60.0 (>58); GLUCOSE, FASTING 481 MG/DL (70-100); POTASSIUM SERUM 3.8 MEQ/L (3.5-5.1); SALICYLATE LEVEL < 1.7 MG/DL (5.0-30.0); SODIUM LEVEL 135 MEQ/L (136-145); TOTAL PROTEIN 6.4 GM/DL (6.4-8.2)
[2019-04-08 06:44] LABS: AMPHETAMINES LEVEL URINE NEGATIVE (NEGATIVE); BARBITURATES URINE NEGATIVE (NEGATIVE); BENZODIAZEPINES URINE NEGATIVE (NEGATIVE); CANNABINOIDS URINE NEGATIVE (NEGATIVE); COCAINE METABOLITE URINE NEGATIVE (NEGATIVE); METHADONE URINE NEGATIVE (NEGATIVE); OPIATES URINE NEGATIVE (NEGATIVE); PHENCYCLIDINE URINE NEGATIVE (NEGATIVE)
[2019-04-08] MEDS ORDERED: HumuLIN R (REGULAR) INSULIN (NovoLIN R) **100U/ML** PER UNIT IV ONE (07:00)
--- NOTE | 2019-04-08 07:01 | REPVR ---
EXAM: CT Head Without Contrast EXAM DATE/TIME: 04/08/2019 6:10 AM CLINICAL HISTORY: 48 years old, female; Injury or trauma; Fall; Initial encounter; Concussion / head injury TECHNIQUE: Imaging protocol: Computed tomography of the head without contrast. Radiation optimization: All CT scans at this facility use at least one of these dose optimization techniques: automated exposure control; mA and/or kV adjustment per patient size (includes targeted exams where dose is matched to clinical indication); or iterative reconstruction. COMPARISON: CT Head without contrast 04/02/2019 2:37 AM FINDINGS: Brain: Normal. No hemorrhage. Unremarkable white matter. No mass effect. Ventricles: Normal. No ventriculomegaly. Bones/joints: Unremarkable. No acute fracture. Sinuses: Visualized sinuses are unremarkable. No fluid levels. Mastoid air cells: Visualized mastoid air cells are well aerated. Soft tissues: Unremarkable. IMPRESSION: No acute intracranial abnormality. Electronically signed by: Myles Luna On 04/08/2019 07:00:50 AM
[2019-04-08] MEDS ORDERED: GABA-843 PO (12:46)
[2019-04-08] MEDS ORDERED: GLIM4TAB PO (12:46)
[2019-04-08] MEDS ORDERED: QUET5TAB PO (12:46)
[2019-04-08] MEDS ORDERED: PIOG1TAB36 PO (12:46)
[2019-04-08] MEDS ORDERED: CYAN100050 PO (12:46)
[2019-04-08] MEDS ORDERED: ACETAMINOPHEN TAB 650MG DOSE (2X325MG) PO PRN (15:30)
[2019-04-08] MEDS ORDERED: MAALOX 30 ML SUSP *UDC PO PRN (15:30)
[2019-04-08] MEDS ORDERED: MOM 30ML SUSPENSION UDC PO PRN (15:30)
[2019-04-08] MEDS ORDERED: traZODone 50 MG TAB PO PRN (15:30)
--- NOTE | 2019-04-08 17:10 | ECGEPIP ---
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
[2019-04-08 18:00] VITALS: BP 158/83
[2019-04-09 06:55] VITALS: BP 125/93
--- NOTE | 2019-04-09 10:02 | MHHPEPDOC ---
General Date Of Admission: Apr 08, 2019 Legal Status: 9.39 Chief Complaint "I took too many clonipines" History of Present Illness HISTORY OF THE PRESENT ILLNESS: Patient is a 48 -year-old , female, who presented to the ED on 04/08 after an attempted suicide. The patient did not report any stressors that led to the SA. She reported that she took prescription pills, an does not fully recall what happened after that, but she knows she fell which alerted her that something was wrong. She reported that she has not had her medications for about 2 months because she was unable to pay the pharmacy. She admitted to command auditory hallucinations telling her to hurt herself, as well as hearing the "whooshing sounds that cars make when they go by." She admitted to erratic sleep and appetite, poor impulse control, depressed mood, and feelings of hopelessness. She has previous admissions for suicidal ideations and depression, he most recent one in 06/2018 at [facility]. In the ED she continued to report SI, but did not want to be admitted because she stated she has social anxiety and that the staff do not listen to her. Psychiatric Review of Systems Depression (2 or more weeks): depressed mood, anhedonia, insomnia/hypersomnia, feelings of worthlesness, decreased energy, difficulty concentrating, appetite changes, suicidal thoughts Psychosis: auditory hallucination, visual hallucination, paranoia PTSD: denies Anxiety: gen/non-specific anxiety, stressor related anxiety (unable to get her medications), panic attacks (yesterday) Past Psychiatric History Prior Psychiatric Disorder: Last admitted last year because she had SI and she was hearing voices. Prior Psychiatric Admission: multiple previous admissions [facility] in past for depression, SI with last 07/02/19 Outpatient Treatment: pt attends the [facility]. Her provider is BAYRON Wheat and Shira - therapist. Suicidal/Self injurious: Several times. When she was a young woman she used her mother's blood pressure medications, another time she took a "bunch of pills with a bottle of wine" and the most recent was when she walked out to [address] where she was hoping to get hit by a car. The voices were too loud and they didn't let her sleep, so, she thought the only time to not listen to them was dying. Psychotropic Medication History: Prozac, Gabapentin, Trazodone, Trileptal, Zyprexa. She used to love how she felt while receiving Invega Sustenna ALONSO but her insurance doesn't approve it. She also has been on a medication up until about 2 months ago that she cannot recall, but reports it has worked very well. Past Medical History Medical Problems 1. Diabetes by history 2. headaches 3. obesity 4. s/p bilateral carpal tunnel repair 5. trigger finger surgery - thumbs 6. hyperlipidemia 7. GERD Head Injury: No Seizures: No Hospitalizations: Yes Surgeries: Yes Family Medical/Psychiatric HX Psychiatric Disorders: No Addiction: No Suicide Attemps/Completions: No Addiction History denies Social History Early Relations/development: She was born and raised in [place], with both parents. She had one sister with whom she gets along well. Sibling order: youngest of 2 Paternal relationships: healthy, supportive. Education: HS graduate Occupational: worked in [place] but no employment for about 5 years Legal: denies Martial: , no children Economic: disable, works at [employer] Supports: family Abuse/trauma: denies. Mental Status Examination General Appearance: disheveled, appears stated age, hospital scubs/clothing Build: overweight Demeanor: withdrawn Eye Contact: avoidant Activity: slowed Behavior: cooperative, loss of interests, anhedonia, withdrawn, status post overdose Speech: slow, normal volume, non-spontaneous Mood: depressed Affect: constricted, flat Thought Process: logical/linear, depressed Thought Content (Delusions): other (admits to thoughts of harm to self and others, auditory and visual hallucinations) Thought Content (Other): guarded, internal-stimuli Thought Content (Aggressive): aggressive (assess) (States "I wanted to smack the shit out of my roommate last night") Perception (Hallucinations): auditory, visual Perception (Other): none reported Cognition (Impairment of): none reported Cognition(Intelligence Est.): average Oriented: Awake, Alert, Oriented times three Insight: fair Judgment: Poor Psychosis: Psychotic Perceptions Diagnoses Schizoaffective disorder with depression A-FIB/CHADSVASC A-FIB History Current/History of A-Fib/PAF?: No Current PO Anticoag Therapy: No Treatment Treatment ordered: NONE Assessment She reports she has been out of all of her medications for at least a month and was using the Klonopin ("a handful to fall asleep") to help her sleep. On Saturday night she reports she took too many Klonopin pills and got very sleepy. Her called an ambulance and made her come to the hospital because he was worried about her. She admits to recent symptoms of auditory hallucinations. She hears sounds "like cars whooshing by on [address]", and visual hallucinations of bugs. She reports also hearing voices that tell her to hurt herself and other people, and admits that last night she wanted to "smack the shit out of her roommate." She admits to thoughts of hurting herself and reports current SI. She reports she has thought about cutting herself or taking pills, and admits that is "maybe" what she tried to do last night with the Klonopin. She reports that whatever medication they discharged her on the last time was working for her very well. These symptoms only began when she was no longer able to get her medications. She reports her sleep has not been good since she has not had her medications, and that her appetite "comes and goes." She admits to depressed mood, anhedonia, decreased concentration and energy. She also admits to anxiety and stress worsening since not having her medications, and reports this to be a stressor for her. She reports having a panic attack yesterday as well. Discussed with pt restarting her medications abilify, trileptal, risperidone, and effexor xr. Denies current SI/HI, hallucinations, delusions. Feels safe here Initial Treatment Plan 1. Patient was admitted on a 939 status. 2. Complete history was obtained. 3. With patients permission, family will be contacted and database will be expanded. 4. Patients medication regimen will be reviewed and changed accordingly. 5. Patient will be provided with protected environment. 6. Patient will be treated with individual, group, and milieu therapies. 7. Patient will receive supportive psych-education. 8. Discharge planning will commence immediately. 9. Outpatient follow-up treatment will be strongly recommended. 10. The initial treatment plan will focus initially on: * Depression. * Risk for suicide. 11. abilify 5mg daily, risperidone 1mg qhs, remeron 15mg qhs, and effexor xr 75mg daily ESTIMATED LENGTH OF STAY: 7-10 DAYS. TIME SPENT COUNSELING AND COORDINATING INITIAL CARE: 60 minutes. Vital Signs Vital Signs Date Time Temp Pulse Resp B/P (MAP) Pulse Ox O2 Delivery O2 Flow Rate FiO2 04/09/19 06:55 98.6 100 14 125/93 (104) 04/08/19 18:00 100 04/08/19 14:06 Room Air Laboratory Data 24H Labs Laboratory Tests 2 04/08/19 11:14: Bedside Glucose (Misc Panel) 291H 04/08/19 18:02: Bedside Glucose (Misc Panel) 215H 04/09/19 00:48: Bedside Glucose (Misc Panel) 254H 04/09/19 07:03: Bedside Glucose (Misc Panel) 261H Medications Scheduled Aripiprazole (Aripiprazole) 5 Mg Tablet, 5 MG PO QHS, (Reported) Atorvastatin Calcium (Atorvastatin Calcium) 10 Mg Tab, 10 MG PO QHS for CHOLESTEROL, (Reported) Baclofen (Baclofen) 10 Mg Tab, 20 MG PO QAM for MUSCLE SPASMS, (Reported) Baclofen (Baclofen) 20 Mg Tab, 40 MG PO QHS for MUSCLE SPASMS, (Reported) Cyanocobalamin (Vitamin B-12) (Vitamin B-12) 1,000 Mcg Tablet, 1,000 MCG PO DAILY, (Reported) Gabapentin (Gabapentin) 300 Mg Capsule, 300 MG PO BID, (Reported) Glimepiride (Glimepiride) 4 Mg Tablet, 4 MG PO BID, (Reported) Metformin HCl (Metformin HCl) 1,000 Mg Tab, 1,000 MG PO BID for DIABETES, (Reported) Mirtazapine (Remeron) 15 Mg Tablet, 15 MG PO QHS, (Reported) Oxcarbazepine (Trileptal) 600 Mg Tablet, 600 MG PO BID, (Reported) Pantoprazole Sodium (Pantoprazole Sodium) 40 Mg Tablet.dr, 40 MG PO QHS, (Reported) Pioglitazone HCl (Pioglitazone HCl) 15 Mg Tablet, 15 MG PO DAILY, (Reported) Quetiapine Fumarate (Quetiapine Fumarate) 50 Mg Tablet, 50 MG PO DAILY, (Reported) Quetiapine Fumarate (Quetiapine Fumarate) 50 Mg Tablet, 100 MG PO QHS, (Reported) Risperidone (Risperdal) 4 Mg Tablet, 4 MG PO QHS, (Reported) Venlafaxine HCl (Venlafaxine HCl ER) 150 Mg Cap.er.24h, 150 MG PO DAILY, (Reported) Scheduled PRN Ibuprofen (Ibu-200) 200 Mg Tab, 600 MG PO BID PRN for PAIN, (Reported) Allergies Coded Allergies: Penicillins (Verified Allergy, Unknown, ANAPHYLAXIS, 04/08/19) bupropion (Verified Allergy, Unknown, RASH, 04/08/19) ketorolac (Verified Allergy, Unknown, UNKNOWN REACTION, 04/08/19) tomato (Verified Allergy, Unknown, 03/26/19) GURJIT ARREOLA DO Apr 09, 2019 10:02 am
[2019-04-09] MEDS ORDERED: IBUPROFEN 600 MG TAB PO PRN (11:00)
[2019-04-09] MEDS ORDERED: DEXTROSE 50% 50 ML SYRINGE IV PRN (11:00)
[2019-04-09] MEDS ORDERED: GLUCAGON FOR INJ 1 MG VIAL (J1610) SC PRN (11:00)
[2019-04-09] MEDS ORDERED: GLUCOSE 4 GM CHEW TABLET PO PRN (11:00)
[2019-04-09] MEDS ORDERED: hydrOXYzine 50 MG TAB PO PRN (11:30)
[2019-04-09] MEDS ORDERED: VENLAFAXINE **XR** 75MG CAPSULE PO ONE (12:00)
[2019-04-09] MEDS: HumaLOG INSULIN (NovoLOG) PER UNIT SC SCH ×3 (12:17→20:57)
--- NOTE | 2019-04-09 15:55 | HPEPDOC ---
General Date of Admission Apr 08, 2019 at 15:27 Date of Service: Apr 09, [address] Espinal Chief Complaint The patient is a 48-year-old female admitted with a reason for visit of Unspecified Depressive Disorder. History of Present Illness 48 years old white female with past medical history of polycystic ovarian disease, GERD, diabetes mellitus, hyperlipidemia, depression, anxiety, insomnia, bipolar disorder and schizophrenia, schizoaffective disorder, psoriasis, morbid obesity presented in ED with chief complaints of suicidal attempt while taken her too many Klonopin's. As per patient, she ran out of her medications about 2 months ago. She was unable to pay the pharmacy and has been feeling depressed, helpless, hopelessness, poor sleep and appetite, poor impulse control and decided to end her life by taking too many Klonopin's. Patient also has not taken her other meds as well. Follow which she is not sure about her health status, but denies any chest pain, shortness of breath, nausea, vomiting, diar hernesto, etc. Home Medications Scheduled Aripiprazole (Aripiprazole) 5 Mg Tablet, 5 MG PO QHS, (Reported) Atorvastatin Calcium (Atorvastatin Calcium) 10 Mg Tab, 10 MG PO QHS for CHOL ESTEROL, (Reported) Baclofen (Baclofen) 10 Mg Tab, 20 MG PO QAM for MUSCLE SPASMS, (Reported) Baclofen (Baclofen) 20 Mg Tab, 40 MG PO QHS for MUSCLE SPASMS, (Reported) Cyanocobalamin (Vitamin B-12) (Vitamin B-12) 1,000 Mcg Tablet, 1,000 MCG PO DAILY, (Reported) Gabapentin (Gabapentin) 300 Mg Capsule, 300 MG PO BID, (Reported) Glimepiride (Glimepiride) 4 Mg Tablet, 4 MG PO BID, (Reported) Metformin HCl (Metformin HCl) 1,000 Mg Tab, 1,000 MG PO BID for DIABETES, (Reported) Mirtazapine (Remeron) 15 Mg Tablet, 15 MG PO QHS, (Reported) Oxcarbazepine (Trileptal) 600 Mg Tablet, 600 MG PO BID, (Reported) Pantoprazole Sodium (Pantoprazole Sodium) 40 Mg Tablet.dr, 40 MG PO QHS, (Reported) Pioglitazone HCl (Pioglitazone HCl) 15 Mg Tablet, 15 MG PO DAILY, (Reported) Quetiapine Fumarate (Quetiapine Fumarate) 50 Mg Tablet, 50 MG PO DAILY, (Reported) Quetiapine Fumarate (Quetiapine Fumarate) 50 Mg Tablet, 100 MG PO QHS, (Reported) Risperidone (Risperdal) 4 Mg Tablet, 4 MG PO QHS, (Reported) Venlafaxine HCl (Venlafaxine HCl ER) 150 Mg Cap.er.24h, 150 MG PO DAILY, (Reported) Scheduled PRN Ibuprofen (Ibu-200) 200 Mg Tab, 600 MG PO BID PRN for PAIN, (Reported) Allergies Coded Allergies: Penicillins (Verified Allergy, Unknown, ANAPHYLAXIS, 04/08/19) bupropion (Verified Allergy, Unknown, RASH, 04/08/19) ketorolac (Verified Allergy, Unknown, UNKNOWN REACTION, 04/08/19) tomato (Verified Allergy, Unknown, 03/26/19) Past Medical History Medical History Polycystic ovarian disease, GERD, diabetes mellitus2. Hyperlipidemia, depression, anxiety, insomnia, bipolar disorder, schizophrenia, schizoaffective disorder, psoriasis, morbid obesity Surgical History Bilateral carpal tunnel repair, trigger thumb repair Social History * Smoker: former Smoker, quit greater than 1 year Alcohol: Denies Drugs: denies A-FIB/CHADSVASC A-FIB History Current/History of A-Fib/PAF?: No Review of Systems Constitutional: Denies: Chills, Fever, Malaise, Night Sweats, Weakness, Fatigue, Weight Loss, Lethargy, Other Eyes: Denies: Pain, Vision change, Conjunctivae inflammation, Eyelid inflammation, Redness, Other ENT: Denies: Head Aches, Ear Pain, Dysphagia, Sinus Congestion, Post Nasal Drip, Sore Throat, Epistaxis, Other Symptoms Skin: Denies: Rash, Lesions, Jaundice, Bruising, Itching, Dry, Breakdown, Nail Changes, Other Pulmonary: Denies: Dyspnea, Cough, Pleuritic Chest Pain, Other Symptoms Cardiovascular: Denies: Chest Pain, Palpitations, Orthopnea, Paroxysmal Noc. Dyspnea, Edema, Lt Headedness, Other Symptoms Gastrointestinal: Denies: Nausea, Vomiting, Abdominal Pain, Diarrhea, Constipation, Melena, Hematochezia, Other Symptoms Genitourinary: Denies: Dysuria, Frequency, Incontinence, Hematuria, Retention, Other Symptoms Hematologic: Denies: Bruising, Bleeding Excessively, Petecchia, Purpura, Enlarged Lymph Nodes, Other Hematologic Endocrine: Denies: Polydipsia, Polyphagia, Polyuria, Heat Intolerance, Cold Intolerance, Other Endocrine Sx Musculoskeletal: Denies: Neck Pain, Back Pain, Joint Pain, Muscle Pain, Spasms Psych: Reports: Depression, Thoughts of Self Harm Physical Examination General Exam: Positive: Alert, Cooperative Eye Exam: Positive: PERRLA, Conjunctiva & lids normal ENT Exam: Positive: Atraumatic, Mucous membr. moist/pink Neck Exam: Positive: Supple Chest Exam: Positive: Clear to auscultation, Normal air movement Heart Exam: Positive: Rate Normal, Normal S1, Normal S2 Abdomen Exam: Positive: Normal bowel sounds, Soft Extremity Exam: Positive: Normal pulses Skin Exam: Positive: Nl turgor and temperature Neuro Exam: Positive: Strength at 5/5 X4 ext, Sensation Intact Psych Exam: Positive: Mental status NL, Mood NL, Oriented x 3 Vital Signs Vital Signs Date Time Temp Pulse Resp B/P (MAP) Pulse Ox O2 Delivery O2 Flow Rate FiO2 04/09/19 06:55 98.6 100 14 125/93 (104) 04/08/19 18:00 100 04/08/19 14:06 Room Air Laboratory Data Labs 24H Laboratory Tests 2 04/08/19 18:02: Bedside Glucose (Misc Panel) 215H 04/09/19 00:48: Bedside Glucose (Misc Panel) 254H 04/09/19 07:03: Bedside Glucose (Misc Panel) 261H 04/09/19 11:52: Bedside Glucose (Misc Panel) 295H Problems (1) Diabetes mellitus Status: Chronic (2) Hyperlipidemia Status: Chronic (3) PCOS (polycystic ovarian syndrome) Status: Chronic (4) Depression with suicidal ideation Status: Acute (5) Bipolar disorder, current episode depressed, severe, with psychotic features Status: Acute (6) Noncompliance with diet and medication regimen Status: Acute (7) Hypertension Status: Acute (8) Migraine headache Status: Chronic (9) OD (overdose of drug) Plan / VTE VTE Prophylaxis Ordered?: No VTE Exclusion Mechanical Proph: Low Risk for VTE Plan Plan Patient has been admitted to mental health inpatient unit. Seen by Dr. Espinal for psychiatric Patient's psych meds. We've been reviewed and change by psychiatry. Patient will be treated with individual and group therapies. Patient has not taken all her medications since last 2 months I will restart patient's diabetes and hypertension meds along with hyperlipidemia, meds Fingerstick blood sugar every before meals and at bedtime with coverage Will get hemoglobin A1c, CBC, CMP and magnesium in a.m. Further changes depending on patient's blood work reports Diet will be carbohydrate consistent diet Activity as tolerated Thank you, Dr. Espinal, for calling this consult and we will follow this patient along with you in mental health unit TALIA MELENDEZ MD Apr 09, 2019 15:55
[2019-04-09] MEDS: GLIMEPIRIDE 2 MG TAB PO SCH (16:43)
[2019-04-09] MEDS: metFORMIN (GLUCOPHAGE) 1000 MG TABLET PO SCH (16:43)
[2019-04-09 17:24] VITALS: BP 149/87
[2019-04-09] MEDS: ATORVASTATIN 10 MG TAB PO SCH (20:57)
[2019-04-09] MEDS: MIRTAZAPINE 15 MG TAB PO SCH (20:57)
[2019-04-09] MEDS: risperiDONE 1 MG TAB PO SCH (20:57)
[2019-04-09] MEDS: HYDROCORTISONE 1% CREAM 30 GM TOP SCH (20:58)
[2019-04-10 06:48] VITALS: BP 154/77
[2019-04-10 07:00] LABS: HEMOGLOBIN 12.7 g/dl (12.0-15.5); MEAN CORPUSCULAR HEMOGLOBIN 28.9 pg (27.0-33.0); MEAN CORPUSCULAR HGB CONC 34.3 g/dl (32.0-36.5); MEAN CORPUSCULAR VOLUME 84.1 fl (80.0-96.0); PLATELET COUNT, AUTOMATED 256 10^3/uL (150-450)
[2019-04-10 07:16] LABS: HEMOGLOBIN A1c 9.2 %
[2019-04-10 07:21] LABS: ALBUMIN 3.2 GM/DL (3.2-5.2); ALT/SGPT 58 U/L (12-78); BILIRUBIN,TOTAL 0.3 MG/DL (0.2-1.0); BLOOD UREA NITROGEN 8 MG/DL (7-18); CALCIUM LEVEL 8.6 MG/DL (8.5-10.1); CARBON DIOXIDE LEVEL 24 MEQ/L (21-32); CHLORIDE LEVEL 102 MEQ/L (98-107); CREATININE FOR GFR 0.64 MG/DL (0.55-1.30); GLOMERULAR FILTRATION RATE > 60.0 (>58); GLUCOSE, FASTING 241 MG/DL (70-100); MAGNESIUM LEVEL 1.9 MG/DL (1.8-2.4); POTASSIUM SERUM 3.7 MEQ/L (3.5-5.1); SODIUM LEVEL 136 MEQ/L (136-145); TOTAL PROTEIN 6.7 GM/DL (6.4-8.2)
[2019-04-10] MEDS: HumaLOG INSULIN (NovoLOG) PER UNIT SC SCH ×4 (07:38→20:36)
[2019-04-10] MEDS: metFORMIN (GLUCOPHAGE) 1000 MG TABLET PO SCH ×2 (07:39→17:04)
[2019-04-10] MEDS: GLIMEPIRIDE 2 MG TAB PO SCH ×2 (07:39→17:04)
[2019-04-10] MEDS: VENLAFAXINE **XR** 75MG CAPSULE PO SCH (08:58)
[2019-04-10] MEDS: HYDROCORTISONE 1% CREAM 30 GM TOP SCH ×3 (08:58→20:36)
--- NOTE | 2019-04-10 10:41 | MHIPNPDOC ---
[facility] Progress Note Progress Note DATE OF SERVICE: 04/10/19 HISTORY: Patient is a 48 -year-old , female, who presented to the ED on 04/08 after an attempted suicide. The patient did not report any stressors that led to the SA. She reported that she took prescription pills, an does not fully recall what happened after that, but she knows she fell which alerted her that something was wrong. She reported that she has not had her medic ations for about 2 months because she was unable to pay the pharmacy. She admitted to command auditory hallucinations telling her to hurt herself, as well as hearing the "whooshing sounds that cars make when they go by." She admitted to erratic sleep and appetite, poor impulse control, depressed mood, and feelings of hopelessness. She has previous admissions for suicidal ideations and depression, he most recent one in 06/2018 at [facility]. In the ED she continued to report SI, but did not want to be admitted because she stated she has social anxiety and that the staff do not listen to her. VITAL SIGNS: See below. CURRENT MEDICATIONS: See below. MENTAL STATUS EXAMINATION: General Appearance: disheveled, appears stated age, hospital scubs/clothing Build: overweight Demeanor: cooperative Eye Contact: fair Activity: less slow Behavior: cooperative Speech: reg rate, normal volume, spontaneous Mood: depressed Affect: constricted, flat Thought Process: logical/linear, depressed Thought Content (Delusions): denies SI/HI, AVH Thought Content (Other): none reported Thought Content (Aggressive): none reported Perception (Hallucinations): auditory, visual Perception (Other): none reported Cognition (Impairment of): none reported Cognition(Intelligence Est.): average Oriented: Awake, Alert, Oriented times three Insight: poor Judgment: Poor Psychosis: none reported DIAGNOSES: 1. Major Depressive Disorder with psychotic features vs. Schizoaffective disorder with depression ASSESSMENT: Pt seen and states that her mood is better with the restart of her medications. States she went to group in the moring and plans to go for the rest of the day as she finds them helpful. Believes "all I needed was to get back on my medication" as the reason she feels better today. She is dressed in her own clothes, smiles at times (still overall flat and depressed though) appropriate to interview. States she's being social on the milieu which is beneficial. States she slept well last night. Feels she is tolerating her medications and they're beneficial. She denies SI/HI, hallucinations, delusions. Pt feels safe here. MANAGEMENT PLAN: 1. abilify 5mg daily 2. risperidone 1mg qhs 3. remeron 15mg qhs 4. effexor xr 75mg daily. TIME SPENT: 30 minutes. Vital Signs Vital Signs Date Time Temp Pulse Resp B/P (MAP) Pulse Ox O2 Delivery O2 Flow Rate FiO2 04/10/19 06:48 97.9 97 18 154/77 (102) 04/08/19 18:00 100 04/08/19 14:06 Room Air Laboratory Data 24H Labs Laboratory Tests 2 04/09/19 11:52: Bedside Glucose (Misc Panel) 295H 04/09/19 16:37: Bedside Glucose (Misc Panel) 292H 04/09/19 20:55: Bedside Glucose (Misc Panel) 216H 04/10/19 06:18: Bedside Glucose (Misc Panel) 223H 04/10/19 06:35: Nucleated Red Blood Cells % (auto) 0.0, Anion Gap 10, Glomerular Filtration Rate > 60.0, Estimated Mean Plasma Glucose 217H, Hemoglobin A1c 9.2, Blood Urea Nitrogen 8, Creatinine 0.64, Sodium Level 136, Potassium Level 3.7, Chloride Level 102, Carbon Dioxide Level 24, Calcium Level 8.6, Aspartate Amino Transf (AST/SGOT) 49H, Alanine Aminotransferase (ALT/SGPT) 58, Alkaline Phosphatase 74, Total Bilirubin 0.3, Total Protein 6.7, Albumin 3.2, Magnesium Level 1.9, Albumin/Globulin Ratio 0.91L CBC/BMP Laboratory Tests 04/10/19 06:35 Red Blood Count 4.40, Mean Corpuscular Volume 84.1, Mean Corpuscular Hemoglobin 28.9, Mean Corpuscular Hemoglobin Concent 34.3, Red Cell Distribution Width 14.9 H, Calcium Level 8.6, Aspartate Amino Transf (AST/SGOT) 49 H, Alanine Aminotransferase (ALT/SGPT) 58, Alkaline Phosphatase 74, Total Bilirubin 0.3, Total Protein 6.7, Albumin 3.2 Current Medications Current Medications Medications (Trade) Dose Ordered Sig/Annamarie Route PRN Reason Start Time Stop Time Status Last Admin Dose Admin Acetaminophen (Tylenol Tab) 650 mg Q6HP PRN PO HEADACHE or DISCOMFORT 04/08/19 15:30 04/09/19 16:47 Al Hydrox/Mg Hydrox/Simethicone (Mylanta) 30 ml Q4HP PRN PO HEARTBURN/INDIGESTION 04/08/19 15:30 Aripiprazole (AbiLIFY) 5 mg DAILY PO 04/10/19 09:00 04/10/19 08:57 Atorvastatin Calcium (Lipitor) 10 mg QHS PO 04/09/19 21:00 04/09/19 20:57 Dextrose (Dextrose 50%) 25 ml ASDIRECTED PRN IV SEE LABEL COMMENTS 04/09/19 11:00 Glimepiride (Amaryl) 4 mg BID@0730,1730 PO 04/09/19 17:30 04/10/19 07:39 Glucagon (Glucagon) 1 mg ASDIRECTED PRN SC SEE LABEL COMMENTS 04/09/19 11:00 Glucose (Glucose) 16 GM ASDIRECTED PRN PO SEE LABEL COMMENTS 04/09/19 11:00 Home Med (Med Rec Complete!) ASDIRECTED XX 04/08/19 13:00 04/08/19 13:19 DC Hydrocortisone (Hydrocortisone 1% Cream) APPLY TO AFFECTED AREA ... TID TOP 04/09/19 21:00 04/10/19 08:58 Hydroxyzine HCl (Atarax) 50 mg Q6HP PRN PO ANXIETY/AGITATION 04/09/19 11:30 Ibuprofen (Advil) 600 mg BID PRN PO PAIN 04/09/19 11:00 Insulin Human Lispro (HumaLOG INSULIN) SEE PROTOCOL TABLE AC SC 04/09/19 12:00 04/10/19 07:38 Insulin Human Lispro (HumaLOG INSULIN) SEE PROTOCOL TABLE QHS SC 04/09/19 21:00 Magnesium Hydroxide (Milk Of Magnesia) 30 ml DAILYPRN PRN PO CONSTIPATION 04/08/19 15:30 Metformin HCl (Glucophage) 1,000 mg BID@0730,1730 PO 04/09/19 17:30 04/10/19 07:39 Mirtazapine (Remeron) 15 mg QHS PO 04/09/19 21:00 04/09/19 20:57 Risperidone (RisperDAL) 1 mg QHS PO 04/09/19 21:00 04/09/19 20:57 Trazodone HCl (Desyrel) 50 mg QHSP PRN PO INSOMNIA 04/08/19 15:30 04/09/19 00:53 Venlafaxine HCl (Effexor Xr) 75 mg DAILY PO 04/10/19 09:00 04/10/19 08:58 Allergies Coded Allergies: Penicillins (Verified Allergy, Unknown, ANAPHYLAXIS, 04/08/19) bupropion (Verified Allergy, Unknown, RASH, 04/08/19) ketorolac (Verified Allergy, Unknown, UNKNOWN REACTION, 04/08/19) tomato (Verified Allergy, Unknown, 03/26/19) GURJIT ARREOLA DO Apr 10, 2019 10:41 am
[2019-04-10 18:09] VITALS: BP 135/79
[2019-04-10] MEDS: ATORVASTATIN 10 MG TAB PO SCH (20:36)
[2019-04-10] MEDS: MIRTAZAPINE 15 MG TAB PO SCH (20:36)
[2019-04-10] MEDS: risperiDONE 1 MG TAB PO SCH (20:36)
[2019-04-11 06:08] VITALS: BP 152/78
[2019-04-11] MEDS: metFORMIN (GLUCOPHAGE) 1000 MG TABLET PO SCH ×2 (06:42→17:06)
[2019-04-11] MEDS: HumaLOG INSULIN (NovoLOG) PER UNIT SC SCH ×4 (06:42→20:21)
[2019-04-11] MEDS: GLIMEPIRIDE 2 MG TAB PO SCH ×2 (06:43→17:07)
[2019-04-11] MEDS: VENLAFAXINE **XR** 75MG CAPSULE PO SCH (09:18)
[2019-04-11] MEDS: HYDROCORTISONE 1% CREAM 30 GM TOP SCH ×3 (09:19→20:18)
[2019-04-11 16:21] VITALS: BP 123/73
[2019-04-11] MEDS: MIRTAZAPINE 15 MG TAB PO SCH (20:21)
[2019-04-11] MEDS: risperiDONE 1 MG TAB PO SCH (20:21)
[2019-04-11] MEDS: ATORVASTATIN 10 MG TAB PO SCH (20:21)
--- NOTE | 2019-04-11 22:11 | MHIPN ---
DATE: 04/11/2019 The patient today states "I am doing good." She denies being suicidal. She says that she slept good. She admits that she still hears "background chatter," but she says that this is baseline for her. She is not having the auditory hallucinations that were telling her to hurt herself or other disturbing auditory hallucinations. MENTAL STATUS EXAMINATION: This patient is alert and oriented times three. Eye contact is fairly good. She is verbally spontaneous. No formal thought disorder noted. She says that her mood is "good." Affect is constricted but appropriate. She does continue to have some baseline hallucinations, auditory type. Concentration is fair. Memory intact. Insight and judgment fair. DIAGNOSES: 1. Major depressive disorder with psychotic features. 2. Depressive schizoaffective disorder with depression. TREATMENT PLAN: We will continue to further evaluate and monitor the patient for continued elevation and stabilization of her mood and for continued resolution of her auditory hallucinations and continued resolution of suicidal thoughts.
[2019-04-12 06:42] VITALS: BP 139/87
[2019-04-12] MEDS: HumaLOG INSULIN (NovoLOG) PER UNIT SC SCH ×4 (07:30→20:35)
[2019-04-12] MEDS: GLIMEPIRIDE 2 MG TAB PO SCH ×2 (08:45→17:28)
[2019-04-12] MEDS: metFORMIN (GLUCOPHAGE) 1000 MG TABLET PO SCH ×2 (08:45→17:28)
[2019-04-12] MEDS: VENLAFAXINE **XR** 75MG CAPSULE PO SCH (08:45)
[2019-04-12] MEDS: HYDROCORTISONE 1% CREAM 30 GM TOP SCH ×3 (08:46→20:33)
[2019-04-12 16:34] VITALS: BP 125/60
--- NOTE | 2019-04-12 16:44 | MHIPN ---
DATE: 04/12/2019 The patient today states that she is doing good. She has no complaints. I am not eliciting any mood symptoms. She says that she does continue with baseline background chatter, but no auditory hallucinations of the command type that she was having before. She says that she slept good. MENTAL STATUS EXAMINATION: She is alert and oriented times three. She is pleasant, cooperative, verbally spontaneous. Eye contact is good. Mood is good. Affect is full range and appropriate. She has also continued to have some chronic baseline hallucinations. She is not suicidal or homicidal. Concentration is fair. Memory intact. Insight and judgment fair. DIAGNOSES: 1. Major depressive disorder with psychotic features versus schizoaffective disorder with depression. TREATMENT PLAN: At this point, we will continue to monitor the patient for continued elevation and stabilization of her mood and for continued resolution of the command hallucinations and of her suicidal thoughts.
[2019-04-12] MEDS: MIRTAZAPINE 15 MG TAB PO SCH (20:31)
[2019-04-12] MEDS: ATORVASTATIN 10 MG TAB PO SCH (20:31)
[2019-04-12] MEDS: risperiDONE 1 MG TAB PO SCH (20:31)
[2019-04-13 06:40] VITALS: BP 113/67
[2019-04-13] MEDS: metFORMIN (GLUCOPHAGE) 1000 MG TABLET PO SCH ×2 (07:20→17:07)
[2019-04-13] MEDS: GLIMEPIRIDE 2 MG TAB PO SCH ×2 (07:20→17:08)
[2019-04-13] MEDS: HumaLOG INSULIN (NovoLOG) PER UNIT SC SCH ×4 (07:25→20:01)
[2019-04-13] MEDS: VENLAFAXINE **XR** 75MG CAPSULE PO SCH (09:10)
[2019-04-13] MEDS: HYDROCORTISONE 1% CREAM 30 GM TOP SCH ×3 (09:10→20:01)
--- NOTE | 2019-04-13 10:34 | MHIPNPDOC ---
[facility] Progress Note Progress Note DATE OF SERVICE: 04/13/19 HISTORY: Patient is a 48 -year-old , female, who presented to the ED on 04/08 after an attempted suicide. The patient did not report any stressors that led to the SA. She reported that she took prescription pills, an does not fully recall what happened after that, but she knows she fell which alerted her that something was wrong. She reported that she has not had her medications for about 2 months because she was unable to pay the pharmacy. She admitted to command auditory hallucinations telling her to hurt herself, as well as hearing the "whooshing sounds that cars make when they go by." She admitted to erratic sleep and appetite, poor impulse control, depressed mood, and feelings of hopelessness. She has previous admissions for suicidal ideations and depression, he most recent one in 06/2018 at [facility]. In the ED she continued to report SI, but did not want to be admitted because she stated she has social anxiety and that the staff do not listen to her. VITAL SIGNS: See below. CURRENT MEDICATIONS: See below. MENTAL STATUS EXAMINATION: General Appearance: well groomed, appears stated age, personal clothing Build: overweight Demeanor: cooperative Eye Contact: average Activity: average Behavior: cooperative Speech: clear, reg/rate,rhythm,volume Mood: "I feel good" Affect: appropriate, congruent Thought Process: logical/linear, intact Thought Content (Delusions): denies SI/HI, AVH Thought Content (Other): appropriate, coherent Thought Content (Aggressive): none reported Perception (Hallucinations): none reported Perception (Other): none reported Cognition (Impairment of): none reported Cognition(Intelligence Est.): average Oriented: Awake, Alert, Oriented times three Insight: fair Judgment: fair Psychosis: none reported DIAGNOSES: 1. Major Depressive Disorder with psychotic features vs. Schizoaffective disorder with depression ASSESSMENT: Pt seen and states that her weekend was good. She missed some groups over the weekend because she has been having diarrhea, but thinks this might be from her new diabetic medications. She states her dizziness had improved but today she is feeling dizzy again which she reports being attributed to feeling dehydrated. Overall she feels her mood is better with the restart of her medications. She states "gradually my mood has been getting better and better with the medications." She reports that she no longer has the anger she was feeling before when not on her medications. States she went to group in the morning and plans to continue going to groups as long as her stomach is feeling okay. She is dressed in her own clothes, smiling, and no longer appears flat or depressed. Pt complaint ofnot being on seroquel and reminded pt why seroquel was discontinued (was on 3 antipsychotics abilify, risperidone, seroquel which can promote metabolic risks which she already suffers from) and advised will increase her risperidone to see if that helps for to improve more. States she slept well last night and over the weekend. She denies SI/HI, hallucinations, delusions. Pt feels safe here. MANAGEMENT PLAN: increase risperidone, D/c home tomorrow. 1. abilify 5mg daily 2. risperidone 2mg qhs 3. remeron 15mg qhs 4. effexor xr 75mg daily. TIME SPENT: 30 minutes. Vital Signs Vital Signs Date Time Temp Pulse Resp B/P (MAP) Pulse Ox O2 Delivery O2 Flow Rate FiO2 04/13/19 06:40 97.4 91 14 113/67 (82) 04/08/19 18:00 100 04/08/19 14:06 Room Air Laboratory Data 24H Labs Laboratory Tests 2 04/12/19 12:20: Bedside Glucose (Misc Panel) 238H 04/12/19 17:24: Bedside Glucose (Misc Panel) 158H 04/12/19 20:31: Bedside Glucose (Misc Panel) 130H 04/13/19 06:18: Bedside Glucose (Misc Panel) 216H Current Medications Current Medications Medications (Trade) Dose Ordered Sig/Annamarie Route PRN Reason Start Time Stop Time Status Last Admin Dose Admin Acetaminophen (Tylenol Tab) 650 mg Q6HP PRN PO HEADACHE or DISCOMFORT 04/08/19 15:30 04/09/19 16:47 Al Hydrox/Mg Hydrox/Simethicone (Mylanta) 30 ml Q4HP PRN PO HEARTBURN/INDIGESTION 04/08/19 15:30 Aripiprazole (AbiLIFY) 5 mg DAILY PO 04/10/19 09:00 04/13/19 09:10 Atorvastatin Calcium (Lipitor) 10 mg QHS PO 04/09/19 21:00 04/12/19 20:31 Dextrose (Dextrose 50%) 25 ml ASDIRECTED PRN IV SEE LABEL COMMENTS 04/09/19 11:00 Glimepiride (Amaryl) 4 mg BID@0730,1730 PO 04/09/19 17:30 04/13/19 07:20 Glucagon (Glucagon) 1 mg ASDIRECTED PRN SC SEE LABEL COMMENTS 04/09/19 11:00 Glucose (Glucose) 16 GM ASDIRECTED PRN PO SEE LABEL COMMENTS 04/09/19 11:00 Home Med (Med Rec Complete!) ASDIRECTED XX 04/08/19 13:00 04/08/19 13:19 DC Hydrocortisone (Hydrocortisone 1% Cream) APPLY TO AFFECTED AREA ... TID TOP 04/09/19 21:00 04/13/19 09:10 Hydroxyzine HCl (Atarax) 50 mg Q6HP PRN PO ANXIETY/AGITATION 04/09/19 11:30 Ibuprofen (Advil) 600 mg BID PRN PO PAIN 04/09/19 11:00 Insulin Human Lispro (HumaLOG INSULIN) SEE PROTOCOL TABLE AC SC 04/09/19 12:00 04/13/19 07:25 Insulin Human Lispro (HumaLOG INSULIN) SEE PROTOCOL TABLE QHS SC 04/09/19 21:00 Magnesium Hydroxide (Milk Of Magnesia) 30 ml DAILYPRN PRN PO CONSTIPATION 04/08/19 15:30 Metformin HCl (Glucophage) 1,000 mg BID@0730,1730 PO 04/09/19 17:30 04/13/19 07:20 Mirtazapine (Remeron) 15 mg QHS PO 04/09/19 21:00 04/12/19 20:31 Risperidone (RisperDAL) 1 mg QHS PO 04/09/19 21:00 04/12/19 20:31 Trazodone HCl (Desyrel) 50 mg QHSP PRN PO INSOMNIA 04/08/19 15:30 04/09/19 00:53 Venlafaxine HCl (Effexor Xr) 75 mg DAILY PO 04/10/19 09:00 04/13/19 09:10 Allergies Coded Allergies: Penicillins (Verified Allergy, Unknown, ANAPHYLAXIS, 04/08/19) bupropion (Verified Allergy, Unknown, RASH, 04/08/19) ketorolac (Verified Allergy, Unknown, UNKNOWN REACTION, 04/08/19) tomato (Verified Allergy, Unknown, 03/26/19) GURJIT ARREOLA DO Apr 13, 2019 09:27
[2019-04-13 15:41] VITALS: BP 105/54
[2019-04-13] MEDS: ATORVASTATIN 10 MG TAB PO SCH (20:00)
[2019-04-13] MEDS: MIRTAZAPINE 15 MG TAB PO SCH (20:00)
[2019-04-13] MEDS ORDERED: risperiDONE 2 MG TAB PO SCH (21:00)
[2019-04-13] MEDS ORDERED: LOPERAMIDE 2 MG CAP PO ONE (22:30)
[2019-04-13] MEDS ORDERED: LOPERAMIDE 2 MG CAP PO PRN (22:30)
[2019-04-14] MEDS: HumaLOG INSULIN (NovoLOG) PER UNIT SC SCH (06:32)
[2019-04-14 07:00] VITALS: BP 130/80
[2019-04-14] MEDS: metFORMIN (GLUCOPHAGE) 1000 MG TABLET PO SCH (08:36)
[2019-04-14] MEDS: VENLAFAXINE **XR** 75MG CAPSULE PO SCH (08:36)
[2019-04-14] MEDS: HYDROCORTISONE 1% CREAM 30 GM TOP SCH (08:37)
[2019-04-14] MEDS: GLIMEPIRIDE 2 MG TAB PO SCH (08:37)
[2019-04-14] MEDS ORDERED: REME15TA PO (09:19)
[2019-04-14] MEDS ORDERED: VENL75CA47 PO (09:19)
[2019-04-14] MEDS ORDERED: RISP2TAB32 PO (09:19)
[2019-04-14] MEDS ORDERED: HYDR50TA70 PO (09:19)
--- NOTE | 2019-04-14 09:20 | MHDSPDOC ---
[facility] Discharge Summary Discharge Summary DATE OF ADMISSION: Apr 08, 2019 at 3:27 pm DATE OF DISCHARGE: Apr 14, 2019 DISCHARGE DIAGNOSES: 1. Major Depressive Disorder with psychotic features vs. Schizoaffective disor candido with depression REASON FOR ADMISSION: Patient is a 48 -year-old , female, who presented to the ED on 04/08 after an attempted suicide. The patient did not report any stressors that led to the SA. She reported that she took prescription pills, an does not fully recall what happened after that, but she knows she fell which alerted her that something was wrong. She reported that she has not had her medications for about 2 months because she was unable to pay the pharmacy. She admitted to command auditory hallucinations telling her to hurt herself, as well as hearing the "whooshing sounds that cars make when they go by." She admitted to erratic sleep and appetite, poor impulse control, depressed mood, and feelings of hopelessness. She has previous admissions for suicidal ideations and depression, he most recent one in 06/2018 at [facility]. In the ED she continued to report SI, but did not want to be admitted because she stated she has social anxiety and that the staff do not listen to her. CONSULTANTS INVOLVED: none TREATMENT AND PROGRESS ON THE UNIT : Pt was admitted to [facility], seen for psychiat tamia assessment and restarted on her outpatient medication at lower doses due to lack of use for over 2mos abilify 5mg daily, risperidone 2mg qhs, remeron 15mg qhs, and effexor xr 75mg daily. She was provided vistaril 25mg q6hr prn anxiety and trazodone 50mg qhs prn insomnia. Her outpatient seroquel was discontinued due to pt having been on 3 antipsychotics with co-morbid metabolic diseases to limit risk and worsening of metabolic diseases. Pt found her medications beneficial and tolerated them well. She attended groups daily during her stay. Her symptoms improved with treatment. On day of discharge she denied depression, anxiety, insomnia, SI/HI, hallucinations, delusions. She was discharged home with follow-up at [facility]. She felt safe for discharge. DISCHARGE ASSESSMENT: Pt seen and states that her weekend was good and is looking forward to going home today and being with her . Overall she feels her mood is much better with the restart of her medications that she's tolerating well. States she slept well last night and over the weekend. She is attending groups and finding them helpful. She appears bright and euthymic. She denies depression, anxiety, insomnia, SI/HI, hallucinations, delusions. Pt feels safe to be discharged home with her . . MENTAL STATUS EXAMINATION ON DISCHARGE: General Appearance: well groomed, appears stated age, personal clothing Build: overweight Demeanor: cooperative Eye Contact: average Activity: average Behavior: cooperative Speech: clear, reg/rate,rhythm,volume Mood: "good" Affect: appropriate, congruent Thought Process: logical/linear, intact Thought Content (Delusions): denies SI/HI, AVH Thought Content (Other): appropriate, coherent Thought Content (Aggressive): none reported Perception (Hallucinations): none reported Perception (Other): none reported Cognition (Impairment of): none reported Cognition(Intelligence Est.): average Oriented: Awake, Alert, Oriented times three Insight: good Judgment: good Psychosis: none reported MEDICATIONS ON DISCHARGE: 1. abilify 5mg daily 2. risperidone 2mg qhs 3. remeron 15mg qhs 4. effexor xr 75mg daily. 5. vistaril 25mg q6hr prn anxiety PLAN/FOLLOWUP ARRANGEMENTS: d/c home with follow-up at [facility]. The amount of time spent in the coordination of care for this patient was approximately 30 minutes. Vital Signs/I&Os Vital Signs Date Time Temp Pulse Resp B/P (MAP) Pulse Ox O2 Delivery O2 Flow Rate FiO2 04/14/19 07:00 98.0 94 14 130/80 (97) 04/08/19 18:00 100 04/08/19 14:06 Room Air Laboratory Data Labs 24H Laboratory Tests 2 04/13/19 11:40: Bedside Glucose (Misc Panel) 227H 04/13/19 16:56: Bedside Glucose (Misc Panel) 189H 04/13/19 19:57: Bedside Glucose (Misc Panel) 150H 04/14/19 06:09: Bedside Glucose (Misc Panel) 181H Medications Scheduled Aripiprazole (Aripiprazole) 5 Mg Tablet, 5 MG PO QHS, (Reported) Atorvastatin Calcium (Atorvastatin Calcium) 10 Mg Tab, 10 MG PO QHS for CHOLESTEROL, (Reported) Baclofen (Baclofen) 10 Mg Tab, 20 MG PO QAM for MUSCLE SPASMS, (Reported) Baclofen (Baclofen) 20 Mg Tab, 40 MG PO QHS for MUSCLE SPASMS, (Reported) Cyanocobalamin (Vitamin B-12) (Vitamin B-12) 1,000 Mcg Tablet, 1,000 MCG PO DAILY, (Reported) Gabapentin (Gabapentin) 300 Mg Capsule, 300 MG PO BID, (Reported) Glimepiride (Glimepiride) 4 Mg Tablet, 4 MG PO BID, (Reported) Metformin HCl (Metformin HCl) 1,000 Mg Tab, 1,000 MG PO BID for DIABETES, (Reported) Mirtazapine (Remeron) 15 Mg Tablet, 15 MG PO QHS, (Reported) Oxcarbazepine (Trileptal) 600 Mg Tablet, 600 MG PO BID, (Reported) Pantoprazole Sodium (Pantoprazole Sodium) 40 Mg Tablet.dr, 40 MG PO QHS, (Reported) Pioglitazone HCl (Pioglitazone HCl) 15 Mg Tablet, 15 MG PO DAILY, (Reported) Quetiapine Fumarate (Quetiapine Fumarate) 50 Mg Tablet, 50 MG PO DAILY, (Reported) Quetiapine Fumarate (Quetiapine Fumarate) 50 Mg Tablet, 100 MG PO QHS, (Reported) Risperidone (Risperdal) 4 Mg Tablet, 4 MG PO QHS, (Reported) Venlafaxine HCl (Venlafaxine HCl ER) 150 Mg Cap.er.24h, 150 MG PO DAILY, (Reported) Scheduled PRN Ibuprofen (Ibu-200) 200 Mg Tab, 600 MG PO BID PRN for PAIN, (Reported) Allergies Coded Allergies: Penicillins (Verified Allergy, Unknown, ANAPHYLAXIS, 04/08/19) bupropion (Verified Allergy, Unknown, RASH, 04/08/19) ketorolac (Verified Allergy, Unknown, UNKNOWN REACTION, 04/08/19) tomato (Verified Allergy, Unknown, 03/26/19) GURJIT ARREOLA DO Apr 14, 2019 8:58 am
== END 2019-04-14 10:08 | disposition home or self-care (01) | DRG 885 ==
LOC: M ED 05:09 → M ED INP 15:27 → M PSY 17:42
PROVIDERS: ADMIT Psychiatry & Neurology Psychiatry; ATTEND Psychiatry & Neurology Psychiatry
DX: F32.2 Major depressive disorder, single episode, severe without psychotic features (principal); R45.851 Suicidal ideations; F25.1 Schizoaffective disorder, depressive type; Z91.14 Patient's other noncompliance with medication regimen; Z79.899 Other long term (current) drug therapy; Z88.0 Allergy status to penicillin; Z88.8 Allergy status to other drugs, medicaments and biological substances; Z91.018 Allergy to other foods; K21.9 Gastro-esophageal reflux disease without esophagitis; E11.9 Type 2 diabetes mellitus without complications; E78.5 Hyperlipidemia, unspecified; F41.9 Anxiety disorder, unspecified; G47.00 Insomnia, unspecified; E66.01 Morbid (severe) obesity due to excess calories; L40.8 Other psoriasis; Z87.891 Personal history of nicotine dependence; E28.2 Polycystic ovarian syndrome; I10 Essential (primary) hypertension; G43.909 Migraine, unspecified, not intractable, without status migrainosus

== ENCOUNTER 2019-08-01 21:43 | Emergency (ER) | payer MEDICARE ==
[~2019-08-01] VITALS: Ht 162.6 cm; Wt 115.5 kg
[~2019-08-01 21:43] MED LIST changes: +CLON0.5T2 PO; -CLON0.5T8 PO; +CYAN100050 PO; +FLUO20CA20 PO; -FLUO20CA8 PO; -GLIM2TAB PO; +GLIM2TAB2 PO; -GLIM4TAB PO; +GLIM4TAB3 PO; +HYDR50TA70 PO; +PIOG1TAB36 PO
[2019-08-01 22:56] LABS: BASO # 0.1 10^3/uL (0.0-0.2); BASO % 0.6 % (0.0-1.0); EOS # 0.1 10^3/uL (0.0-0.5); EOS % 1.6 % (0.0-3.0); HEMATOCRIT 41.7 % (36.0-47.0); HEMOGLOBIN 13.7 g/dl (12.0-15.5); LYMPH # 1.4 10^3/uL (1.5-5.0); LYMPH % 16.8 % (24.0-44.0); MEAN CORPUSCULAR HEMOGLOBIN 28.5 pg (27.0-33.0); MEAN CORPUSCULAR HGB CONC 32.9 g/dl (32.0-36.5); MEAN CORPUSCULAR VOLUME 86.9 fl (80.0-96.0); MONO # 0.7 10^3/uL (0.0-0.8); MONO % 8.3 % (0.0-5.0); NEUTROPHILS # 6.2 10^3/uL (1.5-8.5); NEUTROPHILS % 72.1 % (36.0-66.0); PLATELET COUNT, AUTOMATED 274 10^3/uL (150-450); WHITE BLOOD COUNT 8.5 10^3/uL (4.0-10.0)
[2019-08-01 23:16] LABS: HCG, SERUM QUALITATIVE NEGATIVE (NEGATIVE)
[2019-08-01 23:25] LABS: ALBUMIN 3.5 GM/DL (3.2-5.2); ALT/SGPT 37 U/L (12-78); BILIRUBIN,DIRECT < 0.1 MG/DL (0.0-0.2); BILIRUBIN,TOTAL 0.2 MG/DL (0.2-1.0); BLOOD UREA NITROGEN 12 MG/DL (7-18); CALCIUM LEVEL 9.3 MG/DL (8.5-10.1); CARBON DIOXIDE LEVEL 28 MEQ/L (21-32); CHLORIDE LEVEL 99 MEQ/L (98-107); CREATININE FOR GFR 1.03 MG/DL (0.55-1.30); GLOMERULAR FILTRATION RATE > 60.0 (>58); GLUCOSE, FASTING 297 MG/DL (70-100); LIPASE 154 U/L (73-393); POTASSIUM SERUM 4.1 MEQ/L (3.5-5.1); SODIUM LEVEL 137 MEQ/L (136-145); TOTAL PROTEIN 7.5 GM/DL (6.4-8.2)
[2019-08-01] MEDS ORDERED: ONDANSETRON 4MG/2ML VIAL (J2405) IV ONE (23:45)
[2019-08-01] MEDS ORDERED: MORPHINE 4 MG/ML 1ML VIAL/SYRINGE (J2270) IV ONE (23:45)
--- NOTE | 2019-08-02 00:25 | REPVR ---
PROCEDURE INFORMATION: Exam: CT Abdomen And Pelvis Without Contrast Exam date and time: 08/01/2019 11:46 PM Age: 48 years old Clinical indication: Abdominal pain; Flank; Right; Additional info: R flank pain TECHNIQUE: Imaging protocol: Computed tomography of the abdomen and pelvis without contrast. Radiation optimization: All CT scans at this facility use at least one of these dose optimization techniques: automated exposure control; mA and/or kV adjustment per patient size (includes targeted exams where dose is matched to clinical indication); or iterative reconstruction. COMPARISON: CT ABD PELVIS WITH CONTRAST 01/26/2014 7:27 PM FINDINGS: Lungs: No suspicious mass or airspace process in the visualized lung bases. Liver: Liver is enlarged and decreased in density suggesting hepatic steatosis. Gallbladder and bile ducts: Gallbladder is present and shows no evidence of gallstone. Pancreas: Noncontrast pancreas shows no obvious mass or adjacent fluid. Spleen: Noncontrast spleen shows no obvious focal deformity. Adrenals: Adrenal glands are normal in appearance. Kidneys and ureters: Left kidney is atrophic. Right kidney is dominant in size but shows no stone or obstruction and no perinephric fluid collection. No biliary dilatation or stone. Stomach and bowel: No evidence of small bowel obstruction. No evidence of acute diverticulitis. Appendix: Normal caliber appendix is identified, with no adjacent inflammation. Intraperitoneal space: No pneumoperitoneum. No abnormal pelvic mass. Vasculature: No aortic aneurysm. Lymph nodes: No enlarged lymph nodes. Bladder: Urinary bladder appears normal. Reproductive: Unremarkable as visualized. Bones/joints: Bony structures are normal except for lumbar spine degenerative disc changes. Soft tissues: Unremarkable. Other findings: Limited evaluation without enteric or IV contrast. IMPRESSION: 1. No evidence of right renal stone or obstruction in a patient with a solitary functioning right kidney. Left kidney is atrophic. 2. No evidence of acute appendicitis or other explanation for acute flank pain. 3. Hepatomegaly and hepatic steatosis Electronically signed by: Porfirio Antony On 08/02/2019 00:24:29 AM
[2019-08-02 00:54] VITALS: BP 126/69
[2019-08-02] MEDS ORDERED: BACTRIM 160MG/800MG DS TAB PO ONE (01:00)
[2019-08-02] MEDS ORDERED: MORPHINE 4 MG/ML 1ML VIAL/SYRINGE (J2270) IV ONE (01:15)
[2019-08-02] MEDS ORDERED: NS 500 ML IV ONE (01:15)
[2019-08-02] MEDS ORDERED: BACT800T5 PO (01:27)
[2019-08-02] MEDS ORDERED: PYRI1TAB5 PO (02:21)
--- NOTE | 2019-08-03 07:37 | ED PDOC ---
Post-Departure Follow-Up dr denise faxed formal report of ct abd/p for fu Mahnaz Gross MD Aug 03, 2019 07:37
== END 2019-08-02 02:38 | disposition home or self-care (01) ==
LOC: M ED 21:43
DX: K76.0 Fatty (change of) liver, not elsewhere classified (principal); R16.0 Hepatomegaly, not elsewhere classified; E11.65 Type 2 diabetes mellitus with hyperglycemia; N39.0 Urinary tract infection, site not specified; N10 Acute pyelonephritis; R10.9 Unspecified abdominal pain; E66.01 Morbid (severe) obesity due to excess calories; Z87.448 Personal history of other diseases of urinary system; E78.5 Hyperlipidemia, unspecified; K21.9 Gastro-esophageal reflux disease without esophagitis; F25.8 Other schizoaffective disorders; E28.2 Polycystic ovarian syndrome; Z87.891 Personal history of nicotine dependence
CPT/HCPCS: 74176; 80048; 80076; 81001; 83690; 84703; 85025; 87088; 87186; 96361; 96374; 96375; 96376; 99284; J2270; J2405

== ENCOUNTER 2020-01-22 18:32 | Emergency (ER) | payer MEDICARE ==
[~2020-01-22] VITALS: Ht 162.6 cm; Wt 121.4 kg
[~2020-01-22 18:32] MED LIST changes: +BACT800T5 PO; -FLUO20CA19 PO; +FLUO20CA22 PO; -GLIM2TAB2 PO; +GLIM2TAB4 PO; -GLIM4TAB3 PO; +GLIM4TAB5 PO; +PYRI1TAB5 PO; -TRAZ-163 PO; +TRAZ-257 PO
[2020-01-22] MEDS ORDERED: BACL1TAB9 PO (18:39)
[2020-01-22] MEDS ORDERED: NS 1,000 ML IV ONE ×2 (19:00→21:15)
[2020-01-22] MEDS ORDERED: MORPHINE 4 MG/ML 1ML VIAL/SYRINGE (J2270) IV ONE ×2 (19:00→21:45)
[2020-01-22 19:22] LABS: BASO % 0.3 % (0.0-1.0); EOS # 0.2 10^3/uL (0.0-0.5); HEMATOCRIT 36.3 % (36.0-47.0); LYMPH # 1.3 10^3/uL (1.5-5.0); LYMPH % 21.4 % (24.0-44.0); MEAN CORPUSCULAR HEMOGLOBIN 28.4 pg (27.0-33.0); MEAN CORPUSCULAR HGB CONC 33.1 g/dl (32.0-36.5); MEAN CORPUSCULAR VOLUME 85.8 fl (80.0-96.0); MONO # 0.5 10^3/uL (0.0-0.8); MONO % 7.7 % (0.0-5.0); NEUTROPHILS % 66.4 % (36.0-66.0); PLATELET COUNT, AUTOMATED 249 10^3/uL (150-450); RED BLOOD COUNT 4.23 10^6/uL (4.00-5.40)
[2020-01-22 19:48] LABS: ALBUMIN 3.2 GM/DL (3.2-5.2); BILIRUBIN,DIRECT 0.1 MG/DL (0.0-0.2); BILIRUBIN,TOTAL 0.2 MG/DL (0.2-1.0)
--- NOTE | 2020-01-22 20:53 | REPVR ---
PROCEDURE INFORMATION: Exam: US Abdomen Limited, Right Upper Quadrant Exam date and time: 01/22/2020 8:08 PM Age: 49 years old Clinical indication: Abdominal pain; Acute; Additional info: Ruq pain wraps to back, pls look at kidney as well TECHNIQUE: Imaging protocol: Real-time ultrasound of the abdomen with image documentation. Examination was focused on the right upper quadrant. COMPARISON: CT ABD PELVIS W/O CONTRAST 08/01/2019 11:44 PM FINDINGS: Liver: The echogenicity of the liver is increased, which is compatible with fatty liver infiltration. No liver lesion is identified from the images obtained. The contour of the liver is smooth. The liver is enlarged and measures 20.4 cm. Gallbladder: The gallbladder is normal in appearance. No stones, masses, gallbladder wall thickening, or pericholecystic fluid are noted. No sonographic Gupta's sign was reported by the fibre technologist. Common bile duct: The common bile duct measures 7 mm in diameter at the level of the wes hepatis. Pancreas: Obscured by gas in the stomach and bowel. Right kidney: The right kidney is normal in appearance and measures 14 cm in length. There is no renal cortical thinning. The renal cortical echogenicity is within normal limits. No renal lesion is seen. There is no hydronephrosis. No obvious stones are seen in the renal collecting system. Intraperitoneal space: No free fluid is seen from the images obtained. IMPRESSION: 1. Normal ultrasound of the gallbladder. 2. Enlarged, fatty liver. 3. No right hydronephrosis. Electronically signed by: Roberto Mercedes On 01/22/2020 20:53:14 PM
[2020-01-22 22:55] VITALS: BP 152/90
[2020-01-22] MEDS ORDERED: DICY10CA13 PO (23:13)
== END 2020-01-22 23:27 | disposition home or self-care (01) ==
LOC: M ED 18:32
DX: R10.9 Unspecified abdominal pain (principal); R33.9 Retention of urine, unspecified; K76.0 Fatty (change of) liver, not elsewhere classified; E11.9 Type 2 diabetes mellitus without complications; I10 Essential (primary) hypertension; E78.5 Hyperlipidemia, unspecified; Z87.448 Personal history of other diseases of urinary system; R51 Headache; R42 Dizziness and giddiness; E28.2 Polycystic ovarian syndrome; Z87.891 Personal history of nicotine dependence; Z79.84 Long term (current) use of oral hypoglycemic drugs; Z79.899 Other long term (current) drug therapy; Z88.0 Allergy status to penicillin; Z88.8 Allergy status to other drugs, medicaments and biological substances; Z91.018 Allergy to other foods
CPT/HCPCS: 76705; 80047; 80076; 81001; 83690; 85025; 96361; 96374; 96376; 99284; J2270

== ENCOUNTER 2020-06-22 22:54 | Emergency (ER) | payer MEDICARE ==
[~2020-06-22] VITALS: Ht 162.6 cm; Wt 114.0 kg
[~2020-06-22 22:54] MED LIST changes: +DICY10CA13 PO; +MIRT-62 PO; +PANT40TA29 PO; -PANT40TA3 PO; -REME15TA PO
[2020-06-23] MEDS ORDERED: PROMETHAZINE INJ 25 MG/ML VIAL (J2550) IV ONE (00:15)
[2020-06-23] MEDS ORDERED: NS 1,000 ML IV ONE (00:15)
--- NOTE | 2020-06-23 01:24 | REPVR ---
PROCEDURE INFORMATION: Exam: CT Head Without Contrast Exam date and time: 06/23/2020 12:19 AM Age: 49 years old Clinical indication: Pain; Headache not specified; Additional info: [place]ap headache TECHNIQUE: Imaging protocol: Computed tomography of the head without contrast. Radiation optimization: All CT scans at this facility use at least one of these dose optimization techniques: automated exposure control; mA and/or kV adjustment per patient size (includes targeted exams where dose is matched to clinical indication); or iterative reconstruction. COMPARISON: CT Head without contrast 2019-04-08 06:32 FINDINGS: Brain: Normal. No hemorrhage. Unremarkable white matter. No mass effect. Cerebral ventricles: No ventriculomegaly. Bones/joints: Unremarkable. No acute fracture. Paranasal sinuses: Visualized sinuses are unremarkable. No fluid levels. Mastoid air cells: Visualized mastoid air cells are well aerated. Soft tissues: Unremarkable. IMPRESSION: No acute intracranial abnormality. Electronically signed by: Duy Martell On 06/23/2020 01:24:31 AM
[2020-06-23] MEDS ORDERED: diphenhydrAMINE 50MG CAP PO ONE (01:45)
[2020-06-23] MEDS ORDERED: LORazepam 2 MG/ML VIAL IV STA (01:45)
[2020-06-23 03:26] LABS: APPEARANCE, CSF CLEAR (CLEAR); COLOR, CSF COLORLESS (COLORLESS); CSF TUBE# CELL CNT TUBE 3
[2020-06-23 03:40] LABS: CSF TUBE# GLU TUBE 1; CSF TUBE# TP TUBE 2; GLUCOSE CSF 101 MG/DL (40-75); TOTAL PROTEIN,CSF 72 MG/DL (15-45)
[2020-06-23] MEDS ORDERED: ACETAMINOPHEN 325 MG TAB PO ONE (04:45)
[2020-06-23] MEDS ORDERED: PROCHLORPERAZINE 5 MG TAB (S0183) PO ONE (04:45)
[2020-06-23 05:19] VITALS: BP 141/63
== END 2020-06-23 06:10 | disposition home or self-care (01) ==
LOC: M ED 22:54
DX: G93.2 Benign intracranial hypertension (principal); E11.9 Type 2 diabetes mellitus without complications; E28.2 Polycystic ovarian syndrome; E66.9 Obesity, unspecified; Z79.84 Long term (current) use of oral hypoglycemic drugs; Z79.899 Other long term (current) drug therapy; Z88.0 Allergy status to penicillin; Z88.8 Allergy status to other drugs, medicaments and biological substances; Z91.018 Allergy to other foods
CPT/HCPCS: 70450; 82945; 84157; 87070; 87205; 89050; 96361; 96374; 96375; 99284; J2060

== ENCOUNTER 2020-07-01 06:12 | Emergency (ER) | payer MEDICARE ==
[~2020-07-01] VITALS: Ht 162.6 cm; Wt 115.5 kg
[~2020-07-01 06:12] MED LIST changes: +CYAN500T14 PO; -CYAN500T8 PO
[2020-07-01] MEDS ORDERED: diphenhydrAMINE 50MG/ML VIAL (J1200) IV ONE (07:30)
[2020-07-01] MEDS ORDERED: ACETAMINOPHEN 500 MG TAB PO ONE (07:30)
[2020-07-01] MEDS ORDERED: NS 1,000 ML IV ONE ×2 (07:30→10:30)
[2020-07-01] MEDS ORDERED: TOPIRAMATE (TopAMAX) 25 MG TAB PO ONE (07:30)
--- NOTE | 2020-07-01 07:35 | REPVR ---
PROCEDURE INFORMATION: Exam: CT Head Without Contrast Exam date and time: 07/01/2020 7:22 AM Age: 49 years old Clinical indication: Pain; Headache; Additional info: Severe headache x 2 weeks base of skull up TECHNIQUE: Imaging protocol: Computed tomography of the head without contrast. Radiation optimization: All CT scans at this facility use at least one of these dose optimization techniques: automated exposure control; mA and/or kV adjustment per patient size (includes targeted exams where dose is matched to clinical indication); or iterative reconstruction. COMPARISON: CT Head without contrast 06/23/2020 12:54 AM FINDINGS: Brain: Normal. No hemorrhage. Unremarkable white matter. No mass effect. Cerebral ventricles: No ventriculomegaly. Bones/joints: Unremarkable. No acute fracture. Paranasal sinuses: Visualized sinuses are unremarkable. No fluid levels. Mastoid air cells: Visualized mastoid air cells are well aerated. Soft tissues: Unremarkable. IMPRESSION: No acute intracranial abnormality. Electronically signed by: Myles Luna On 07/01/2020 07:35:18 AM
[2020-07-01] MEDS ORDERED: dexameTHASONE 4 MG/ML 1ML VIAL (J1100 PER 1MG) IV ONE (09:00)
[2020-07-01] MEDS ORDERED: IBUPROFEN 800 MG TAB PO ONE (09:00)
[2020-07-01] MEDS ORDERED: PROMETHAZINE INJ 25 MG/ML VIAL (J2550) IV ONE (09:00)
[2020-07-01 09:27] LABS: BASO # 0.1 10^3/uL (0.0-0.2); BASO % 0.9 % (0.0-1.0); EOS # 0.3 10^3/uL (0.0-0.5); EOS % 4.7 % (0.0-3.0); HEMATOCRIT 34.2 % (36.0-47.0); LYMPH # 1.5 10^3/uL (1.5-5.0); LYMPH % 26.7 % (24.0-44.0); MEAN CORPUSCULAR HEMOGLOBIN 28.1 pg (27.0-33.0); MEAN CORPUSCULAR HGB CONC 32.2 g/dl (32.0-36.5); MEAN CORPUSCULAR VOLUME 87.5 fl (80.0-96.0); MONO # 0.5 10^3/uL (0.0-0.8); MONO % 9.3 % (0.0-5.0); NEUTROPHILS # 3.3 10^3/uL (1.5-8.5); PLATELET COUNT, AUTOMATED 220 10^3/uL (150-450); RED BLOOD COUNT 3.91 10^6/uL (4.00-5.40); WHITE BLOOD COUNT 5.6 10^3/uL (4.0-10.0)
[2020-07-01 09:42] LABS: ALBUMIN 3.1 GM/DL (3.2-5.2); ALT/SGPT 36 U/L (12-78); BILIRUBIN,DIRECT < 0.1 MG/DL (0.0-0.2); BILIRUBIN,TOTAL 0.2 MG/DL (0.2-1.0); BLOOD UREA NITROGEN 6 MG/DL (7-18); C REACTIVE PROTEIN QUANTITATIV 1.35 MG/DL (0.00-0.30); CALCIUM LEVEL 8.7 MG/DL (8.5-10.1); CARBON DIOXIDE LEVEL 26 MEQ/L (21-32); CHLORIDE LEVEL 103 MEQ/L (98-107); GLUCOSE, FASTING 302 MG/DL (70-100); POTASSIUM SERUM 3.9 MEQ/L (3.5-5.1); SODIUM LEVEL 138 MEQ/L (136-145); TOTAL PROTEIN 6.6 GM/DL (6.4-8.2)
[2020-07-01 10:45] LABS: ERYTHROCYTE SEDIMENTATION RATE 56 mm/hr (0-30)
[2020-07-01 11:15] VITALS: BP 134/71
[2020-07-01] MEDS ORDERED: TOPI50TA9 PO (11:20)
== END 2020-07-01 11:36 | disposition home or self-care (01) ==
LOC: M ED 06:12
DX: G43.919 Migraine, unspecified, intractable, without status migrainosus (principal); E11.9 Type 2 diabetes mellitus without complications; E78.5 Hyperlipidemia, unspecified; E28.2 Polycystic ovarian syndrome; Z87.01 Personal history of pneumonia (recurrent); F25.9 Schizoaffective disorder, unspecified; F41.9 Anxiety disorder, unspecified; F31.89 Other bipolar disorder; F39 Unspecified mood [affective] disorder; F17.200 Nicotine dependence, unspecified, uncomplicated; Z79.84 Long term (current) use of oral hypoglycemic drugs; Z79.899 Other long term (current) drug therapy; Z88.0 Allergy status to penicillin; Z88.6 Allergy status to analgesic agent; Z88.8 Allergy status to other drugs, medicaments and biological substances; Z91.018 Allergy to other foods
CPT/HCPCS: 70450; 80048; 80076; 85025; 85652; 86140; 96361; 96374; 96375; 99283; J1100; J1200

== ENCOUNTER 2020-10-20 07:18 | Emergency (ER) | payer MEDICARE ==
[~2020-10-20] VITALS: Ht 162.6 cm; Wt 113.6 kg
[~2020-10-20 07:18] MED LIST changes: +GABA-282 PO; -GABA-843 PO; -QUET1TAB7 PO; +QUET25TA3 PO; +QUET50TA3 PO; -QUET5TAB PO; +TOPI50TA9 PO
--- NOTE | 2020-10-20 08:03 | REP ---
INDICATION: headache with h/o aneurysm COMPARISON: 07/01/2020 TECHNIQUE: Axial noncontrast images from the skull base to the vertex with coronal reformations. This CT examination was performed using the following dose reduction techniques: Automated exposure control, adjustment of mA and/or kv according to the patient's size, and use of iterative reconstruction technique. FINDINGS: The ventricles, sulci, and cisterns are normal in position and appearance. Rdz-white differentiation is maintained. No acute intracranial hemorrhage, mass/mass effect, pathology or trauma/injury. No evidence for acute infarction. No extra-axial fluid collection. Calvarium is intact. Paranasal sinuses and mastoid air cells are clear. IMPRESSION: Normal noncontrast head CT. No evidence for acute intracranial pathology or trauma/injury. <Electronically signed by Jag Nayak > 10/20/20 0800
[2020-10-20] MEDS ORDERED: diphenhydrAMINE 50MG/ML VIAL (J1200) IV STA (08:25)
[2020-10-20] MEDS ORDERED: METOCLOPRAMIDE INJ 10MG/2ML VIAL (J2765 PER 1) IV ONE (08:25)
[2020-10-20] MEDS ORDERED: NS 1,000 ML IV ONE (08:30)
[2020-10-20] MEDS ORDERED: GABA-282 PO (09:49)
[2020-10-20] MEDS ORDERED: CLON0.5T2 PO (09:49)
[2020-10-20] MEDS ORDERED: CETI-24 PO (09:49)
[2020-10-20] MEDS ORDERED: QUET50TA3 PO (09:49)
[2020-10-20] MEDS ORDERED: FLUTISP (09:49)
[2020-10-20] MEDS ORDERED: PROMETHAZINE INJ 25 MG/ML VIAL (J2550) IV ONE (10:00)
[2020-10-20] MEDS ORDERED: ACETAMINOPHEN 500 MG TAB PO ONE (10:00)
[2020-10-20 12:30] VITALS: BP 132/74
== END 2020-10-20 12:30 | disposition home or self-care (01) ==
LOC: M ED 07:18 → EDBD 07:18 → M ED 12:30
DX: G43.109 Migraine with aura, not intractable, without status migrainosus (principal); E11.9 Type 2 diabetes mellitus without complications; Z87.891 Personal history of nicotine dependence; Z79.84 Long term (current) use of oral hypoglycemic drugs; Z79.899 Other long term (current) drug therapy; Z88.0 Allergy status to penicillin; Z88.8 Allergy status to other drugs, medicaments and biological substances; Z91.018 Allergy to other foods
CPT/HCPCS: 70450; 80047; 96361; 96374; 96375; 99284; J1200; J2765

== ENCOUNTER 2021-01-11 20:21 | Emergency (ER) | payer MEDICARE ==
[~2021-01-11] VITALS: Ht 162.6 cm; Wt 118.0 kg
[~2021-01-11 20:21] MED LIST changes: +CETI-24 PO; +FLUTISP; +GABA-283 PO; -GABA-845 PO
[2021-01-11] MEDS ORDERED: GI COCKTAIL 50ML BTL(HYOSCYAMINE/MAALOX/LIDOCAINE VISCOUS)(1:3:1) PO ONE (20:55)
[2021-01-11] MEDS ORDERED: ASPIRIN 81 MG CHEW TABLET PO ONE (20:55)
[2021-01-11 20:56] LABS: BASO % 0.5 % (0.0-1.0); EOS # 0.3 10^3/uL (0.0-0.5); EOS % 4.8 % (0.0-3.0); HEMATOCRIT 38.4 % (36.0-47.0); HEMOGLOBIN 12.3 g/dl (12.0-15.5); LYMPH # 1.1 10^3/uL (1.5-5.0); LYMPH % 17.4 % (24.0-44.0); MEAN CORPUSCULAR HEMOGLOBIN 26.9 pg (27.0-33.0); MONO # 0.5 10^3/uL (0.0-0.8); MONO % 7.7 % (2.0-8.0); NEUTROPHILS # 4.2 10^3/uL (1.5-8.5); NEUTROPHILS % 69.3 % (36.0-66.0); PLATELET COUNT, AUTOMATED 247 10^3/uL (150-450); RED BLOOD COUNT 4.57 10^6/uL (4.00-5.40); WHITE BLOOD COUNT 6.1 10^3/uL (4.0-10.0)
[2021-01-11 21:13] LABS: BLOOD UREA NITROGEN 7 MG/DL (7-18); CALCIUM LEVEL 8.8 MG/DL (8.5-10.1); CARBON DIOXIDE LEVEL 24 MEQ/L (21-32); CHLORIDE LEVEL 101 MEQ/L (98-107); CREATININE FOR GFR 0.94 MG/DL (0.55-1.30); GLOMERULAR FILTRATION RATE > 60.0 (>51); GLUCOSE, FASTING 278 MG/DL (70-100); POTASSIUM SERUM 4.1 MEQ/L (3.5-5.1); SODIUM LEVEL 137 MEQ/L (136-145)
[2021-01-11] MEDS ORDERED: ISOVUE-370 76% 100ML VIAL As Ordered ONE (21:23)
--- NOTE | 2021-01-11 21:44 | REPVR ---
PROCEDURE INFORMATION: Exam: XR Chest Exam date and time: 01/11/2021 8:40 PM Age: 50 years old Clinical indication: Other: Chest pain TECHNIQUE: Imaging protocol: XR of the chest. Views: 1 view. COMPARISON: [facility] PORTABLE CHEST X-RAY 11/11/2018 8:24 PM FINDINGS: Lungs: Opacity in the lateral aspect of the left lung base consistent with a focus of pneumonitis. Remaining lungs are clear. Pleural spaces: Unremarkable. No pleural effusion. No pneumothorax. Heart/Mediastinum: Unremarkable. No cardiomegaly. Bones/joints: Arthropathic changes in the right glenohumeral joint. IMPRESSION: Opacity in the lateral aspect of the left lung base consistent with a focus of pneumonitis. Electronically signed by: Kwaku Rodriguez On 01/11/2021 21:44:27 PM
--- NOTE | 2021-01-11 21:51 | REPVR ---
PROCEDURE INFORMATION: Exam: CTA Chest With Contrast Exam date and time: 01/11/2021 9:32 PM Age: 50 years old Clinical indication: Shortness of breath; Additional info: Chest pain; SOB; R/O pe TECHNIQUE: Imaging protocol: Computed tomographic angiography of the chest with contrast. 3D rendering (Not supervised by radiologist): MIP and/or 3D reconstructed images were created by the technologist. Radiation optimization: All CT scans at this facility use at least one of these dose optimization techniques: automated exposure control; mA and/or kV adjustment per patient size (includes targeted exams where dose is matched to clinical indication); or iterative reconstruction. Contrast material: ISOVUE 370; Contrast volume: 75 ml; Contrast route: INTRAVENOUS (IV); COMPARISON: [facility] PORTABLE CHEST X-RAY 01/11/2021 8:39 PM FINDINGS: Pulmonary arteries: There are no pulmonary emboli. Aorta: There is no aortic dissection or aneurysm. There is mild atherosclerosis in the thoracic aorta. Lungs: Small ground-glass opacity in the lateral aspect the left lung base may represent atelectasis. A small infiltrate not excluded. Atelectasis right lung base. Small pleural based noncalcified nodule left lower lobe measures 4 mm. Finding likely postinflammatory. Pleural spaces: Smooth bordered noncalcified nodule left upper lobe measures 9.4 x 9.6 mm extending to the lateral pleural surface without focal pleural thickening. Heart: Unremarkable. No cardiomegaly. No pericardial effusion. Lymph nodes: Unremarkable. No enlarged lymph nodes. Bones/joints: The spine demonstrates mild degenerative changes. Soft tissues: Unremarkable. IMPRESSION: 1. Small ground-glass opacity in the lateral aspect the left lung base may represent atelectasis. A small infiltrate not excluded. 2. Smooth bordered noncalcified nodule left upper lobe measures 9.4 x 9.6 mm extending to the lateral pleural surface without focal pleural thickening. For both low risk and high risk patients, consider CT Chest at 3 months, PET/CT, or biopsy. (Reference: Slick) References: Slick Castillo et al. Guidelines for Management of Incidental Pulmonary Nodules Detected on CT Images: From the Fleischner Society 2017. Radiology. 2017;284(1):228-243. 3. There is no aortic dissection or aneurysm. 4. There are no pulmonary emboli. Electronically signed by: Kwaku Rodriguez On 01/11/2021 21:51:09 PM
[2021-01-11] MEDS ORDERED: ONDANSETRON 4MG/2ML VIAL IV ONE (22:30)
[2021-01-11] MEDS ORDERED: DOXYCYCLINE HYCLATE 100MG TABLET PO ONE (22:30)
[2021-01-11] MEDS ORDERED: DOXY-342 PO (22:30)
[2021-01-11 22:39] VITALS: BP 132/71
--- NOTE | 2021-01-12 08:40 | ECGEPIP ---
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
== END 2021-01-11 22:52 | disposition home or self-care (01) ==
LOC: M ED 20:21
DX: J18.9 Pneumonia, unspecified organism (principal); R91.1 Solitary pulmonary nodule; R06.02 Shortness of breath; E11.9 Type 2 diabetes mellitus without complications; E78.5 Hyperlipidemia, unspecified; I10 Essential (primary) hypertension; K21.9 Gastro-esophageal reflux disease without esophagitis; F31.9 Bipolar disorder, unspecified; Z86.79 Personal history of other diseases of the circulatory system
CPT/HCPCS: 71045; 71275; 80048; 84484; 85025; 93005; 93041; 94760; 96374; 99284; J2405; Q9967

== ENCOUNTER 2021-02-08 23:24 | Emergency (ER) | payer MEDICARE ==
[~2021-02-08] VITALS: Ht 162.6 cm; Wt 117.8 kg
[~2021-02-08 23:24] MED LIST changes: +DOXY-342 PO
[2021-02-09] MEDS ORDERED: FAMOTIDINE IV BAG 20 MG in IV 1 EA IV ONE (00:15)
[2021-02-09] MEDS ORDERED: diphenhydrAMINE 50MG/ML VIAL (J1200) IV ONE (00:15)
[2021-02-09] MEDS ORDERED: methylPREDNISolone 125MG 2ML VIAL IV ONE (00:15)
[2021-02-09] MEDS ORDERED: PRED20TA PO (03:40)
[2021-02-09 03:45] VITALS: BP 156/82
== END 2021-02-09 04:10 | disposition home or self-care (01) ==
LOC: M ED 23:24
DX: R21 Rash and other nonspecific skin eruption (principal); T36.0X5A Adverse effect of penicillins, initial encounter; Y92.9 Unspecified place or not applicable; Y93.9 Activity, unspecified; F25.9 Schizoaffective disorder, unspecified; Z87.891 Personal history of nicotine dependence; Z79.899 Other long term (current) drug therapy; Z88.0 Allergy status to penicillin; Z88.8 Allergy status to other drugs, medicaments and biological substances; Z91.018 Allergy to other foods
CPT/HCPCS: 96365; 96375; 99284; J1200; J2930

== ENCOUNTER 2021-09-16 19:27 | Emergency (ER) | payer MEDICARE ==
[~2021-09-16] VITALS: Ht 162.6 cm; Wt 116.4 kg
[~2021-09-16 19:27] MED LIST changes: +FLUO-96 PO; -FLUO20CA20 PO; -IBUP200T45 PO; +IBUP200T46 PO; +PRED20TA PO; +QUET1TAB17 PO; -QUET25TA3 PO; -QUET50TA3 PO; +QUET50TA4 PO
[2021-09-16] MEDS ORDERED: ACETAMINOPHEN TAB 650MG DOSE (2X325MG) PO ONE (21:45)
[2021-09-16] MEDS ORDERED: traMADol 50 MG TAB PO ONE (21:45)
[2021-09-16] MEDS ORDERED: HYDR-3713 PO (23:46)
[2021-09-16] MEDS ORDERED: COLA100C5 PO (23:46)
[2021-09-16 23:54] VITALS: BP 163/84
== END 2021-09-16 23:55 | disposition home or self-care (01) ==
LOC: M ED 19:27
DX: S33.8XXA Sprain of other parts of lumbar spine and pelvis, initial encounter (principal); W00.0XXA Fall on same level due to ice and snow, initial encounter; Y92.9 Unspecified place or not applicable; Y93.9 Activity, unspecified; Y99.9 Unspecified external cause status; M48.062 Spinal stenosis, lumbar region with neurogenic claudication; M47.816 Spondylosis without myelopathy or radiculopathy, lumbar region; M51.36 Other intervertebral disc degeneration, lumbar region; S32.030D Wedge compression fracture of third lumbar vertebra, subsequent encounter for fracture with routine healing; S32.050D Wedge compression fracture of fifth lumbar vertebra, subsequent encounter for fracture with routine healing; I10 Essential (primary) hypertension; E11.9 Type 2 diabetes mellitus without complications; E28.2 Polycystic ovarian syndrome; Z88.0 Allergy status to penicillin; Z88.8 Allergy status to other drugs, medicaments and biological substances; Z79.899 Other long term (current) drug therapy

== ENCOUNTER → 2022-04-25 | Outpatient (CLI) | payer MEDICARE ==
[~2022-04-25] MED LIST changes: +COLA100C5 PO; +HYDR-3713 PO
== END ==
LOC: M CARPUL 14:23
PROVIDERS: ATTEND Internal Medicine Cardiovascular Disease
DX: R06.02 Shortness of breath (principal); Z87.891 Personal history of nicotine dependence; Z68.41 Body mass index [BMI] 40.0-44.9, adult

== ENCOUNTER → 2022-05-07 | Outpatient (CLI) | payer MEDICARE ==
[~2022-05-07] MED LIST changes: +ARIP1TAB10; +CEFD300C41 PO
== END ==
LOC: M SLEEP HO 13:17
PROVIDERS: ATTEND Internal Medicine Cardiovascular Disease
DX: J98.4 Other disorders of lung (principal); G25.81 Restless legs syndrome; G47.9 Sleep disorder, unspecified

== ENCOUNTER → 2022-09-13 | Outpatient (CLI) | payer MEDICARE ==
[~2022-09-13] MED LIST changes: +BENZ200C70 PO; -DOXY-342 PO; +DOXY-443 PO; +DOXY100C81 PO; +NYST-38 SS; -NYST50SS SS; +TOPI-254 PO; -TOPI50TA9 PO
== END ==
LOC: M SLEEP 20:00
PROVIDERS: ATTEND Internal Medicine Critical Care Medicine
DX: G47.33 Obstructive sleep apnea (adult) (pediatric) (principal)

== ENCOUNTER 2022-09-24 20:37 | Emergency (ER) | payer MEDICARE ==
[~2022-09-24] VITALS: Ht 162.6 cm; Wt 109.1 kg
[~2022-09-24 20:37] MED LIST changes: -BENZ200C70 PO; -DOXY-443 PO; -TOPI-254 PO; +TOPI50TA9 PO
[2022-09-24 21:37] LABS: RSV AMPLIFICATION NEGATIVE (NEGATIVE)
[2022-09-25] MEDS ORDERED: BENZ200C70 PO (01:48)
[2022-09-25] MEDS ORDERED: DOXY-443 PO (01:48)
[2022-09-25] MEDS ORDERED: DOXYCYCLINE HYCLATE 100MG TABLET PO ONE (01:50)
[2022-09-25] MEDS ORDERED: ACETAMINOPHEN 325 MG TAB PO ONE (02:45)
[2022-09-25 03:23] VITALS: BP 134/63
== END 2022-09-25 03:25 | disposition home or self-care (01) ==
LOC: M ED 20:37
DX: J01.90 Acute sinusitis, unspecified (principal); H65.03 Acute serous otitis media, bilateral; K21.9 Gastro-esophageal reflux disease without esophagitis; F31.9 Bipolar disorder, unspecified; Z79.899 Other long term (current) drug therapy; Z88.0 Allergy status to penicillin; Z88.8 Allergy status to other drugs, medicaments and biological substances; Z91.018 Allergy to other foods

== ENCOUNTER 2022-11-01 01:30 | Emergency (ER) | payer MEDICARE ==
[~2022-11-01] VITALS: Ht 162.6 cm; Wt 113.4 kg
[~2022-11-01 01:30] MED LIST changes: +BENZ200C70 PO; +DOXY-443 PO; +TOPI-254 PO; -TOPI50TA9 PO
[2022-11-01] MEDS ORDERED: ISOVUE-370 76% 100ML VIAL As Ordered ONE (01:47)
[2022-11-01 02:09] LABS: BASO % 0.7 % (0.0-1.0); EOS # 0.2 10^3/uL (0.0-0.5); EOS % 3.7 % (0.0-3.0); HEMATOCRIT 40.9 % (36.0-47.0); HEMOGLOBIN 13.8 g/dl (12.0-15.5); LYMPH # 1.4 10^3/uL (1.5-5.0); LYMPH % 23.6 % (24.0-44.0); MEAN CORPUSCULAR HEMOGLOBIN 30.7 pg (27.0-33.0); MEAN CORPUSCULAR HGB CONC 33.7 g/dl (32.0-36.5); MEAN CORPUSCULAR VOLUME 90.9 fl (80.0-96.0); MONO # 0.5 10^3/uL (0.0-0.8); MONO % 8.5 % (2.0-8.0); NEUTROPHILS # 3.7 10^3/uL (1.5-8.5); NEUTROPHILS % 62.8 % (36.0-66.0); PLATELET COUNT, AUTOMATED 233 10^3/uL (150-450); WHITE BLOOD COUNT 5.9 10^3/uL (4.0-10.0)
[2022-11-01] MEDS ORDERED: HYDROMORPHONE HCL 0.5 MG/ 0.5 ML SYRINGE IV ONE ×2 (02:30→04:20)
[2022-11-01] MEDS ORDERED: METOCLOPRAMIDE INJ 10MG/2ML VIAL IV ONE (02:30)
[2022-11-01] MEDS ORDERED: NS 1,000 ML IV ONE (02:30)
[2022-11-01 02:33] LABS: BLOOD UREA NITROGEN 12 MG/DL (9-23); CALCIUM LEVEL 9.2 MG/DL (8.5-10.1); CARBON DIOXIDE LEVEL 27 MMOL/L (20-31); CHLORIDE LEVEL 96 MMOL/L (98-107); CK-MB VALUE MASS < 1.0 NG/ML (<3.6); CPK CREATINE PHOSPHOKINASE 79 U/L (34-145); CREATININE FOR GFR 0.64 MG/DL (0.55-1.30); GLOMERULAR FILTRATION RATE > 60.0 (>51); GLUCOSE, FASTING 312 MG/DL (60-100); MB/CK RELATIVE INDEX 1.26 (< OR =4); POTASSIUM SERUM 4.1 MMOL/L (3.5-5.1); SODIUM LEVEL 133 MMOL/L (136-145)
[2022-11-01 02:39] LABS: RSV AMPLIFICATION NEGATIVE (NEGATIVE)
[2022-11-01] MEDS ORDERED: diazePAM 10MG/2ML SYRINGE IV ONE (04:20)
[2022-11-01 05:00] VITALS: BP 119/56
== END 2022-11-01 06:44 | disposition home or self-care (01) ==
LOC: M ED 01:30
DX: G43.109 Migraine with aura, not intractable, without status migrainosus (principal); R91.1 Solitary pulmonary nodule; I65.23 Occlusion and stenosis of bilateral carotid arteries; E11.9 Type 2 diabetes mellitus without complications; E78.5 Hyperlipidemia, unspecified; F32.9 Major depressive disorder, single episode, unspecified; D41.9 Neoplasm of uncertain behavior of unspecified urinary organ; F20.9 Schizophrenia, unspecified; Z79.84 Long term (current) use of oral hypoglycemic drugs; Z79.899 Other long term (current) drug therapy; Z88.0 Allergy status to penicillin; Z88.8 Allergy status to other drugs, medicaments and biological substances; Z91.018 Allergy to other foods
CPT/HCPCS: 70450; 70496; 70498; 71045; 80047; 80048; 82550; 82553; 84484; 85025; 85730; 86850; 86900; 86901; 87631; 93005; 93041; 94760; 96361; 96374; 96375; 96376; 99285; J1170; J2765; J3360; Q9967

== ENCOUNTER → 2022-11-10 | Outpatient (CLI) | payer MEDICARE ==
[~2022-11-10] MED LIST changes: +FLUT50SP17; -FLUTISP
== END ==
LOC: M SLEEP 20:00
PROVIDERS: ATTEND Internal Medicine Critical Care Medicine
DX: G47.33 Obstructive sleep apnea (adult) (pediatric) (principal)

== ENCOUNTER → 2023-02-11 | Outpatient (CLI) | payer MEDICARE ==
[~2023-02-11] MED LIST changes: +CYAN-1 PO; -CYAN100050 PO; +DICY-61 PO; -DICY10CA13 PO; -DOXY100C81 PO; +DOXY100C82 PO
== END ==
LOC: M RAD 10:31
PROVIDERS: ATTEND Internal Medicine Critical Care Medicine
DX: R91.8 Other nonspecific abnormal finding of lung field (principal); R91.1 Solitary pulmonary nodule

== ENCOUNTER → 2023-08-26 | Outpatient (CLI) | payer MEDICARE, OTHER ==
[~2023-08-26] MED LIST changes: +CEFD1CAP9 PO; -CEFD300C41 PO; -FLUT50SP17; +FLUTISP; -GABA-283 PO; +GABA-284 PO; -MIRT-62 PO; +MIRT-88 PO; +TOPI-21 PO; -TOPI-254 PO
[2023-08-26 17:20] LABS: BASO % 0.7 % (0.0-1.0); EOS # 0.2 10^3/uL (0.0-0.5); EOS % 5.3 % (0.0-3.0); HEMATOCRIT 37.1 % (36.0-47.0); HEMOGLOBIN 12.9 g/dl (12.0-15.5); LYMPH # 1.2 10^3/uL (1.5-5.0); LYMPH % 28.5 % (24.0-44.0); MEAN CORPUSCULAR HEMOGLOBIN 31.4 pg (27.0-33.0); MEAN CORPUSCULAR HGB CONC 34.8 g/dl (32.0-36.5); MEAN CORPUSCULAR VOLUME 90.3 fl (80.0-96.0); MONO # 0.4 10^3/uL (0.0-0.8); MONO % 8.4 % (2.0-8.0); NEUTROPHILS # 2.4 10^3/uL (1.5-8.5); NEUTROPHILS % 56.9 % (36.0-66.0); PLATELET COUNT, AUTOMATED 193 10^3/uL (150-450); RED BLOOD COUNT 4.11 10^6/uL (4.00-5.40); WHITE BLOOD COUNT 4.2 10^3/uL (4.0-10.0)
[2023-08-26 17:34] LABS: ALBUMIN 3.5 G/DL (3.2-5.2); ALKALINE PHOSPHATASE 85 U/L (46-116); ALT/SGPT 32 U/L (7.0-40); AST/SGOT 27 U/L (<34); BILIRUBIN,TOTAL 0.3 MG/DL (0.3-1.2); BLOOD UREA NITROGEN 8 MG/DL (9-23); CALCIUM LEVEL 9.1 MG/DL (8.5-10.1); CARBON DIOXIDE LEVEL 26 MMOL/L (20-31); CHLORIDE LEVEL 98 MMOL/L (98-107); CHOLESTEROL LEVEL 182 MG/DL (<200); CHOLESTEROL RISK RATIO 4.59 (<5); CREATININE FOR GFR 0.57 MG/DL (0.55-1.30); GLOMERULAR FILTRATION RATE > 60.0 (>51); GLUCOSE, FASTING 171 MG/DL (60-100); HDL CHOLESTEROL 39.6 MG/DL (>40); NON-HDL-C 142.4 MG/DL; POTASSIUM SERUM 4.2 MMOL/L (3.5-5.1); PROLACTIN 6.74 NG/ML; SODIUM LEVEL 130 MMOL/L (136-145); TRIGLYCERIDES LEVEL 580 MG/DL (<150)
[2023-08-26 17:46] LABS: HEMOGLOBIN A1c 7.8 % (4.0-6.0)
== END ==
LOC: M LAB 16:18
PROVIDERS: ATTEND Physician Assistant
DX: Z79.899 Other long term (current) drug therapy (principal); E11.9 Type 2 diabetes mellitus without complications

== ENCOUNTER → 2023-08-26 | Outpatient (CLI) | payer MEDICARE, OTHER ==
[2023-08-26 17:28] LABS: ALBUMIN 3.4 G/DL (3.2-5.2); ALKALINE PHOSPHATASE 83 U/L (46-116); ALT/SGPT 33 U/L (7.0-40); AST/SGOT 26 U/L (<34); BILIRUBIN,TOTAL 0.3 MG/DL (0.3-1.2); BLOOD UREA NITROGEN 7 MG/DL (9-23); CARBON DIOXIDE LEVEL 25 MMOL/L (20-31); CHLORIDE LEVEL 100 MMOL/L (98-107); CREATININE FOR GFR 0.59 MG/DL (0.55-1.30); GLOMERULAR FILTRATION RATE > 60.0 (>51); GLUCOSE, FASTING 169 MG/DL (60-100); POTASSIUM SERUM 4.4 MMOL/L (3.5-5.1); SODIUM LEVEL 134 MMOL/L (136-145); TOTAL PROTEIN 6.6 G/DL (5.7-8.2)
[2023-08-26 17:46] LABS: HEMOGLOBIN A1c 7.8 % (4.0-6.0)
[2023-08-27 14:40] LABS: CREATININE, URINE 77.2 MG/DL; MAU/CREAT RATIO 200.7 MCG/MG (0.0-30.0)
== END ==
LOC: M LAB 16:21
PROVIDERS: ATTEND Family Medicine
DX: E11.9 Type 2 diabetes mellitus without complications (principal)

== ENCOUNTER → 2023-11-13 | Outpatient (CLI) | payer MEDICARE | LOC: M RAD 14:04 | PROVIDERS: ATTEND Internal Medicine Critical Care Medicine | DX: R91.1 Solitary pulmonary nodule (principal) ==

== ENCOUNTER → 2023-12-16 | Outpatient (CLI) | payer MEDICARE ==
[~2023-12-16] MED LIST changes: +DOXY-323 PO; -DOXY-443 PO
[2023-12-16 18:46] LABS: HEMOGLOBIN A1c 4.8 % (4.0-6.0)
[2023-12-16 18:56] LABS: ALBUMIN 3.5 G/DL (3.2-5.2); ALKALINE PHOSPHATASE 79 U/L (46-116); ALT/SGPT 26 U/L (7.0-40); AST/SGOT 16 U/L (<34); BILIRUBIN,TOTAL 0.3 MG/DL (0.3-1.2); BLOOD UREA NITROGEN 10 MG/DL (9-23); CALCIUM LEVEL 9.6 MG/DL (8.5-10.1); CARBON DIOXIDE LEVEL 27 MMOL/L (20-31); CHLORIDE LEVEL 99 MMOL/L (98-107); CREATININE FOR GFR 0.65 MG/DL (0.55-1.30); GLOMERULAR FILTRATION RATE > 60.0 (>51); GLUCOSE, FASTING 98 MG/DL (60-100); POTASSIUM SERUM 4.2 MMOL/L (3.5-5.1); SODIUM LEVEL 137 MMOL/L (136-145); TOTAL PROTEIN 6.5 G/DL (5.7-8.2)
== END ==
LOC: M LAB 17:24
PROVIDERS: ATTEND Family Medicine
DX: R35.0 Frequency of micturition (principal); E11.9 Type 2 diabetes mellitus without complications

== ENCOUNTER → 2023-12-17 | Outpatient (REF) | payer MEDICARE ==
[2023-12-17 11:56] LABS: APPEARANCE, URINE CLEAR (CLEAR); BACTERIA, URINE AUTO NEGATIVE (NEGATIVE); BILIRUBIN, URINE AUTO NEGATIVE (NEGATIVE); BLOOD, URINE BLOOD NEGATIVE (NEGATIVE); COLOR, URINE YELLOW (YELLOW); GLUCOSE, URINE (UA) AUTO NEGATIVE (NEGATIVE); KETONE, URINE AUTO NEGATIVE (NEGATIVE); LEUKOCYTE ESTERASE, URINE AUTO NEGATIVE (NEGATIVE); NITRITE, URINE AUTO NEGATIVE (NEGATIVE); PROTEIN, URINE AUTO 1+ mg/dL (NEGATIVE); RBC, URINE AUTO 0 /HPF (0-3); SPECIFIC GRAVITY URINE AUTO 1.023 (1.002-1.035); SQUAMOUS EPITHELIAL CELL UR AU 0 /HPF (0-6); UROBILINOGEN, URINE AUTO 0.2 mg/dL (0.0-2.0); WBC, URINE AUTO 5 /HPF (0-3)
[2023-12-17 12:43] LABS: CREATININE, URINE 89.8 MG/DL
== END ==
LOC: M SFHCLERA 10:39
PROVIDERS: ATTEND Family Medicine
DX: E11.9 Type 2 diabetes mellitus without complications (principal); R35.0 Frequency of micturition

== ENCOUNTER → 2024-01-14 | Outpatient (CLI) | payer MEDICARE ==
[~2024-01-14] MED LIST changes: +FLUO-365 PO; -FLUO20CA22 PO
== END ==
LOC: M CARPUL 12-19 13:53
PROVIDERS: ATTEND Internal Medicine Critical Care Medicine
DX: J44.9 Chronic obstructive pulmonary disease, unspecified (principal)

== ENCOUNTER → 2024-01-29 | Outpatient (REF) | payer MEDICARE ==
[2024-01-29 11:39] LABS: APPEARANCE, URINE CLEAR (CLEAR); BACTERIA, URINE AUTO NEGATIVE (NEGATIVE); BILIRUBIN, URINE AUTO NEGATIVE (NEGATIVE); BLOOD, URINE BLOOD NEGATIVE (NEGATIVE); COLOR, URINE YELLOW (YELLOW); GLUCOSE, URINE (UA) AUTO 2+ mg/dL (NEGATIVE); KETONE, URINE AUTO NEGATIVE (NEGATIVE); LEUKOCYTE ESTERASE, URINE AUTO NEGATIVE (NEGATIVE); MUCUS, URINE SMALL (NEGATIVE); NITRITE, URINE AUTO NEGATIVE (NEGATIVE); PROTEIN, URINE AUTO 2+ mg/dL (NEGATIVE); RBC, URINE AUTO 1 /HPF (0-3); SPECIFIC GRAVITY URINE AUTO 1.034 (1.002-1.035); SQUAMOUS EPITHELIAL CELL UR AU 1 /HPF (0-6); WBC, URINE AUTO 2 /HPF (0-3)
== END ==
LOC: M SMT 11:00
PROVIDERS: ATTEND Physician Assistant
DX: Z87.898 Personal history of other specified conditions (principal)

== ENCOUNTER → 2024-03-05 | Outpatient (REF) | payer MEDICARE ==
[2024-03-05 17:59] LABS: HEMOGLOBIN A1c 6.2 % (4.0-6.0)
[2024-03-05 18:06] LABS: ALBUMIN 3.8 G/DL (3.2-5.2); ALKALINE PHOSPHATASE 88 U/L (46-116); ALT/SGPT 48 U/L (7.0-40); AST/SGOT 29 U/L (<34); BILIRUBIN,TOTAL 0.3 MG/DL (0.3-1.2); BLOOD UREA NITROGEN 10 MG/DL (9-23); CALCIUM LEVEL 8.8 MG/DL (8.5-10.1); CARBON DIOXIDE LEVEL 26 MMOL/L (20-31); CHLORIDE LEVEL 99 MMOL/L (98-107); CREATININE FOR GFR 0.59 MG/DL (0.55-1.30); GLOMERULAR FILTRATION RATE > 60.0 (>51); GLUCOSE, FASTING 223 MG/DL (60-100); SODIUM LEVEL 137 MMOL/L (136-145); TOTAL PROTEIN 6.7 G/DL (5.7-8.2)
== END ==
LOC: M SFHCLERA 11:52
PROVIDERS: ATTEND Family Medicine
DX: E11.9 Type 2 diabetes mellitus without complications (principal)

== ENCOUNTER → 2024-09-14 | Outpatient (CLI) | payer MEDICARE ==
[~2024-09-14] MED LIST changes: -DOXY-323 PO; +DOXY-441 PO; +GABA-1172 PO; -GABA-282 PO; +PROHANCE 279.3MG/ML 15ML VIAL ONE; +PROHANCE 279.3MG/ML 5ML VIAL ONE
== END ==
LOC: M PLAIMG 07:41
PROVIDERS: ATTEND Psychiatry & Neurology Neurology
DX: G35 Multiple sclerosis (principal); Z79.899 Other long term (current) drug therapy; M47.812 Spondylosis without myelopathy or radiculopathy, cervical region
CPT/HCPCS: 70553; 72156; A9576

== ENCOUNTER → 2024-12-17 | Outpatient (REF) | payer MEDICARE ==
[~2024-12-17] MED LIST changes: -AMBI10TA PO; -AMBI5TAB PO; +DOXY-442 PO; -DOXY100C82 PO; +OLAN20TA74 PO; -PROHANCE 279.3MG/ML 15ML VIAL ONE; -PROHANCE 279.3MG/ML 5ML VIAL ONE; +ZOLP-532 PO; +ZOLP-533 PO; -ZYPR20TA PO
[2024-12-18 17:51] LABS: TOTAL PROTEIN,RANDOM URINE 113.6 MG/DL (0.0-14.0)
[2024-12-18 17:56] LABS: CREATININE,RANDOM URINE 172.9 MG/DL
== END ==
LOC: M LAB REF 16:45
PROVIDERS: ATTEND Nurse Practitioner Family
DX: R80.9 Proteinuria, unspecified (principal)

== ENCOUNTER → 2024-12-24 | Outpatient (CLI) | payer MEDICARE | LOC: M RAD 15:27 | PROVIDERS: ATTEND Internal Medicine Critical Care Medicine | DX: R91.1 Solitary pulmonary nodule (principal); Z87.891 Personal history of nicotine dependence; Z79.899 Other long term (current) drug therapy ==

== ENCOUNTER → 2025-03-07 | Outpatient (REF) | payer MEDICARE, BC ==
[~2025-03-07] MED LIST changes: -PROZ20CA11 PO; +PROZ20CA12 PO
== END ==
LOC: M LAB REF 19:15
PROVIDERS: ATTEND Physician Assistant
DX: R30.0 Dysuria (principal)

== ENCOUNTER → 2025-04-16 | Outpatient (REF) | payer MEDICARE, BC ==
[~2025-04-16] MED LIST changes: -DIPH50CA PO; +DIPH50CA31 PO
[2025-04-16 11:38] LABS: APPEARANCE, URINE CLEAR (CLEAR); BACTERIA, URINE AUTO NEGATIVE (NEGATIVE); BILIRUBIN, URINE AUTO NEGATIVE (NEGATIVE); BLOOD, URINE BLOOD NEGATIVE (NEGATIVE); GLUCOSE, URINE (UA) AUTO 3+ mg/dL (NEGATIVE); KETONE, URINE AUTO NEGATIVE (NEGATIVE); LEUKOCYTE ESTERASE, URINE AUTO NEGATIVE (NEGATIVE); NITRITE, URINE AUTO NEGATIVE (NEGATIVE); PROTEIN, URINE AUTO 1+ mg/dL (NEGATIVE); RBC, URINE AUTO 0 /HPF (0-3); SPECIFIC GRAVITY URINE AUTO 1.022 (1.002-1.035); SQUAMOUS EPITHELIAL CELL UR AU 1 /HPF (0-6); UROBILINOGEN, URINE AUTO 0.2 mg/dL (0.0-2.0); WBC, URINE AUTO 2 /HPF (0-3)
== END ==
LOC: M SFHCLERA 09:44
PROVIDERS: ATTEND Family Medicine
DX: R30.0 Dysuria (principal)

== ENCOUNTER → 2025-06-02 | Outpatient (REF) | payer MEDICARE, BC | LOC: M SFHCPLAZ 10:41 | PROVIDERS: ATTEND Nurse Practitioner Adult Health | DX: R09.89 Other specified symptoms and signs involving the circulatory and respiratory systems (principal) ==